=== PATIENT | female | born 2000 | race Caucasian/White ===

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

== ENCOUNTER 2020-01-14 20:00 | Outpatient (CLI) | payer MEDICAID, SELFPAY | END 2020-01-14 20:01 | disposition home or self-care (01) | LOC: SLEEP 01-15 08:54 | PROVIDERS: PCP Family Medicine; Visit Provider Specialist | DX: G47.411 Narcolepsy with cataplexy (principal); G47.10 Hypersomnia, unspecified | CPT/HCPCS: 95810 ==

== ENCOUNTER 2020-01-15 07:00 | Outpatient (CLI) | payer MEDICAID, SELFPAY | END 2020-01-15 07:01 | disposition home or self-care (01) | LOC: SLEEP 01-16 11:04 | PROVIDERS: PCP Family Medicine; Visit Provider Specialist | DX: G47.411 Narcolepsy with cataplexy (principal); G47.10 Hypersomnia, unspecified | CPT/HCPCS: 95805 ==

== ENCOUNTER → 2020-04-08 13:27 | Outpatient (BNVA) | payer MEDICAID, SELFPAY | PROVIDERS: PCP Family Medicine; Visit Provider Psychiatry & Neurology Psychiatry | DX: F41.1 Generalized anxiety disorder; Z86.59 Personal history of other mental and behavioral disorders; F33.1 Major depressive disorder, recurrent, moderate | CPT/HCPCS: 99205 ==

== ENCOUNTER → 2020-04-14 10:03 | Outpatient (BNVA) | payer MEDICAID, SELFPAY | PROVIDERS: PCP Nurse Practitioner Family; Visit Provider Specialist | DX: G47.411 Narcolepsy with cataplexy (principal); R56.9 Unspecified convulsions; F41.1 Generalized anxiety disorder; F33.1 Major depressive disorder, recurrent, moderate | CPT/HCPCS: 99214 ==

== ENCOUNTER → 2020-05-06 08:17 | Outpatient (BNVA) | payer MEDICAID, SELFPAY | PROVIDERS: PCP Nurse Practitioner Family; Visit Provider Psychiatry & Neurology Psychiatry | DX: F41.1 Generalized anxiety disorder (principal); F33.1 Major depressive disorder, recurrent, moderate; G47.411 Narcolepsy with cataplexy | CPT/HCPCS: 99214 ==

== ENCOUNTER 2020-06-01 15:23 | Emergency (ER) | payer MEDICAID, SELFPAY ==
[2020-06-01 15:34] VITALS: BP 123/82; PULSE 97; RESP 14; TEMP 37.2; O2SAT 97; BMI 27.3
--- NOTE | 2020-06-01 15:38 | ECG_ITS ---
[facility] Test Date: 2020-06-01 Pat Name: Kavita Dsouza Department: Room: Gender: Female Orthotic Aide: : 2000 Requested By: Nomi Cavazos Order Number: [id number] Gerson MD: MARIOLA CANDELARIO Measurements Intervals [place] Rate: 107 P: 67 AK: 138 QRS: 68 QRSD: 78 T: 48 QT: 332 QTc: 444 Interpretive Statements SINUS TACHYCARDIA POSSIBLE LEFT ATRIAL ENLARGEMENT [-0.1mV P WAVE IN V1/V2] ABNORMAL RHYTHM ECG No previous ECG available for comparison Electronically Signed On 06-01-2020 20:16:38 CDT by MARIOLA CANDELARIO [id number] [email or web address]
--- NOTE | 2020-06-01 15:40 | ED_ITS ---
Documented by User: Nomi Dodge DO 06/07/20 08:12 HPI - Seizure General: Chief Complaint: Seizure Stated Complaint: SEIZURES Time Seen by Provider: 06/01/20 15:38 History of Present Illness: HPI Narrative: 19-year-old female presents emergency room via EMS with report of seizures. She reportedly had 2 in the field they gave her 2 separate doses of Versed for them. On arrival here she had 2 more while I was in the room. She breathes through these almost hyperventilating like and is shaking of her lower extremities with contractures of her upper extremities. She is nonresponsive. In between episodes she is nonresponsive to painful stimuli. There is no report of trauma. Reviewing her medication list she is not on any anti-'s seizure medications but she is on a several psychiatric medications. Later in the visit she had an episode where she was shaking but then was able to stop when her mother called out. Earlier she had not done that and not responding to painful stimuli. After what appeared to be seizures she had definitive postictal state. MD complaint: seizure Seizure History: Yes Review of Systems General: Reports: ROS unobtainable due to medical condition [facility] ED PFSH: Medical History Bipolar 1 disorder Mitral valve prolapse Seizures Surgical History H/O eye surgery Social History Smoking and tobacco status: never smoked Second hand smoke exposure: No Current gender identity: Female Female Reproductive History: Date of last menstrual period: 11/19/19 Physical Exam Const: COMMON NORMALS: no acute distress GENERAL APPEARANCE: cooperative and comfortable ORIENTATION/CONSCIOUSNESS: Yes awake, Yes oriented to person, Yes oriented to place and Yes oriented to time HENMT: COMMON NORMALS: normocephalic, atraumatic and hearing grossly normal bilaterally HEAD & SCALP: normocephalic and atraumatic Neck/C-Spine: COMMON NORMALS: no JVD Resp: COMMON NORMALS: normal respiratory effort, No retractions, No use of accessory muscles and clear to auscultation bilaterally AUSCULTATION: clear to auscultation bilaterally Cardio: COMMON NORMALS: no JVD, regular rate, regular rhythm and No murmurs present (Cardio) RATE: regular rate RHYTHM: regular rhythm GI: COMMON NORMALS: Soft to palpation and No hepatosplenomegaly present AUSCULTATION: Yes normoactive bowel sounds PALPATION: Yes Soft to palpation, No Tenderness to palpation present (GI), No Guarding due to palpation present (GI) and Yes No hepatosplenomegaly present Extremity: COMMON NORMALS: normal to inspection, capillary refill normal, no clubbing, cyanosis or edema, no calf tenderness and no pedal edema Neuro: SENSORIUM/ORIENTATION: Yes oriented to person, Yes oriented to place and Yes oriented to time Skin: COMMON NORMALS: no rashes or lesions noted GENERAL SKIN EXAM: no rashes or lesions noted Course Vital Signs: Vital signs: Vital Signs Temperature 99.0 F 06/01/20 15:34 Pulse Rate 96 06/01/20 18:11 Respiratory Rate 18 06/01/20 18:11 Blood Pressure 118/77 06/01/20 18:11 Pulse Oximetry 99 06/01/20 18:11 MDM - Seizure MDM Narrative: Medical decision making narrative: Laboratory studies and imaging pending care turned over to Dr. Souza at change of shift. Lab Data: Labs: Lab Results 06/01/20 06/01/20 06/01/20 Range/Units 13:10 13:10 16:03 WBC 8.6 (4.5-13.0) 10^3/ uL RBC 4.67 (4.1-5.3) 10^6/u L Hgb 14.5 (11.5-15.3) g/dL Hct 42.8 (37.0-47.0) % MCV 91.6 (81-99) fL MCH 31.0 (28.0-34.0) pg MCHC 33.9 (30.0-36.0) g/dL RDW 12.1 (12.1-15.1) % Plt Count 343 (130-400) 10^3/c mm MPV 9.3 (7.4-10.4) fL Neut % (Auto) 70.6 % Lymph % (Auto) 21.9 % [place] % (Auto) 5.9 % Eos % (Auto) 0.9 % Baso % (Auto) 0.5 % Neut # (Auto) 6.06 (1.8-8.0) 10^3/u L Lymph # (Auto) 1.9 (1.5-6.5) 10^3/u L [place] # (Auto) 0.5 (0.2-0.9) 10^3/u L Eos # (Auto) 0.1 (0.0-0.8) 10^3/u L Baso # (Auto) 0.0 (0.0-0.1) 10^3/u L Nucleated RBC % (a uto) 0 % Nucleated RBCs # 0.0 /100WBC Specimen Type Arterial Sample Site Brachial, right ABG pH 7.51 H (7.35-7.45) ABG pCO2 19.8 L* (35-45) mmHg ABG pO2 96.2 (80.0-100.0) mmH g ABG HCO3 15.6 L (22-26) mmol/L ABG O2 Saturation 98.7 ABG Base Excess -4.8 L (-2.0-2.0) mmol/ L Jason Test Pos A-a O2 Gradient 3.4 L (5-10) mmHg Hematocrit 46.0 (37-47) % Hgb O2 Saturation 97.4 (95-100) % Carboxyhemoglobin 0.4 (0.4-20.1) %THgb Methemoglobin 0.9 (0.4-1.5) % Total Hemoglobin 15.0 (12-16) g/dL Ionized Calcium 1.2 (1.1-1.4) mmol/L O2 Delivery Device Room air FiO2 21.0 % Hospital Account Liaison ID jmn Sodium 140 140.0 (136-145) mmol/L Potassium 3.6 3.8 (3.5-5.1) mmol/L Chloride 104 (98-107) mmol/L Carbon Dioxide 23 (22-29) mmol/L Anion Gap 16.6 (5-19) BUN 7 (6-20) mg/dL Creatinine 0.7 (0.5-0.9) mg/dL GFR Calculation 107.8 (90-130) mL/min Glucose 78 90.0 (65-115) mg/dL Calculated Osmolal ity 287 (285-295) mOsm/k g Lactic Acid (0.5-2.2) mmol/L Calcium 9.0 (8.5-10.5) mg/dL Total Bilirubin 0.2 (0.15-1.2) mg/dL AST 24 (0-32) U/L ALT 18 (0-33) U/L Alkaline Phosphata se 73 (35-105) IU/L Creatine Kinase 107 (26-192) U/L Total Protein 7.3 (6.6-8.7) g/dL Albumin 4.5 (3.5-5.2) g/dL Globulin 2.8 (1.3-4.6) g/dL HCG, Qual (Negative) Urine Color (Yellow) Urine Appearance (CLEAR) Urine pH (5-7) Ur Specific Gravit y (1.005-1.030) Urine Protein (Negative) Urine Glucose (UA) (Normal) Urine Ketones (Negative) Urine Blood (Negative) Urine Nitrate (Negative) Urine Bilirubin (Negative) Urine Urobilinogen (Negative) mg/dL Ur Leukocyte Chiara ase (Negative) Urine Opiates Scre en (Negative) ng/mL Ur Barbiturates Sc reen (Negative) ng/mL Ur Phencyclidine S crn (Negative) ng/mL Ur Amphetamines Sc reen (Negative) ng/mL U Benzodiazepines Scrn (Negative) ng/mL Urine Cocaine Scre en (Negative) ng/mL U Marijuana (THC) Screen (Negative) ng/mL 06/01/20 06/01/20 06/01/20 Range/Units 16:22 17:30 17:30 WBC (4.5-13.0) 10^3/ uL RBC (4.1-5.3) 10^6/u L Hgb (11.5-15.3) g/dL Hct (37.0-47.0) % MCV (81-99) fL MCH (28.0-34.0) pg MCHC (30.0-36.0) g/dL RDW (12.1-15.1) % Plt Count (130-400) 10^3/c mm MPV (7.4-10.4) fL Neut % (Auto) % Lymph % (Auto) % [place] % (Auto) % Eos % (Auto) % Baso % (Auto) % Neut # (Auto) (1.8-8.0) 10^3/u L Lymph # (Auto) (1.5-6.5) 10^3/u L [place] # (Auto) (0.2-0.9) 10^3/u L Eos # (Auto) (0.0-0.8) 10^3/u L Baso # (Auto) (0.0-0.1) 10^3/u L Nucleated RBC % (a uto) % Nucleated RBCs # /100WBC Specimen Type Sample Site ABG pH (7.35-7.45) ABG pCO2 (35-45) mmHg ABG pO2 (80.0-100.0) mmH g ABG HCO3 (22-26) mmol/L ABG O2 Saturation ABG Base Excess (-2.0-2.0) mmol/ L Jason Test A-a O2 Gradient (5-10) mmHg Hematocrit (37-47) % Hgb O2 Saturation (95-100) % Carboxyhemoglobin (0.4-20.1) %THgb Methemoglobin (0.4-1.5) % Total Hemoglobin (12-16) g/dL Ionized Calcium (1.1-1.4) mmol/L O2 Delivery Device FiO2 % Hospital Account Liaison ID Sodium (136-145) mmol/L Potassium (3.5-5.1) mmol/L Chloride (98-107) mmol/L Carbon Dioxide (22-29) mmol/L Anion Gap (5-19) BUN (6-20) mg/dL Creatinine (0.5-0.9) mg/dL GFR Calculation (90-130) mL/min Glucose (65-115) mg/dL Calculated Osmolal ity (285-295) mOsm/k g Lactic Acid 5.0 H* (0.5-2.2) mmol/L Calcium (8.5-10.5) mg/dL Total Bilirubin (0.15-1.2) mg/dL AST (0-32) U/L ALT (0-33) U/L Alkaline Phosphata se (35-105) IU/L Creatine Kinase (26-192) U/L Total Protein (6.6-8.7) g/dL Albumin (3.5-5.2) g/dL Globulin (1.3-4.6) g/dL HCG, Qual (Negative) Urine Color Yellow (Yellow) Urine Appearance Clear (CLEAR) Urine pH 7 (5-7) Ur Specific Gravit y 1.010 (1.005-1.030) Urine Protein Neg (Negative) Urine Glucose (UA) Norm (Normal) Urine Ketones Negative (Negative) Urine Blood Neg (Negative) Urine Nitrate Negative (Negative) Urine Bilirubin Neg (Negative) Urine Urobilinogen Norm (Negative) mg/dL Ur Leukocyte Chiara ase Negative (Negative) Urine Opiates Scre en Negative (Negative) ng/mL Ur Barbiturates Sc reen Negative (Negative) ng/mL Ur Phencyclidine S crn Negative (Negative) ng/mL Ur Amphetamines Sc reen Negative (Negative) ng/mL U Benzodiazepines Scrn Negative (Negative) ng/mL Urine Cocaine Scre en Negative (Negative) ng/mL U Marijuana (THC) Screen Negative (Negative) ng/mL 06/01/20 Range/Units 17:30 WBC (4.5-13.0) 10^3/ uL RBC (4.1-5.3) 10^6/u L Hgb (11.5-15.3) g/dL Hct (37.0-47.0) % MCV (81-99) fL MCH (28.0-34.0) pg MCHC (30.0-36.0) g/dL RDW (12.1-15.1) % Plt Count (130-400) 10^3/c mm MPV (7.4-10.4) fL Neut % (Auto) % Lymph % (Auto) % [place] % (Auto) % Eos % (Auto) % Baso % (Auto) % Neut # (Auto) (1.8-8.0) 10^3/u L Lymph # (Auto) (1.5-6.5) 10^3/u L [place] # (Auto) (0.2-0.9) 10^3/u L Eos # (Auto) (0.0-0.8) 10^3/u L Baso # (Auto) (0.0-0.1) 10^3/u L Nucleated RBC % (a uto) % Nucleated RBCs # /100WBC Specimen Type Sample Site ABG pH (7.35-7.45) ABG pCO2 (35-45) mmHg ABG pO2 (80.0-100.0) mmH g ABG HCO3 (22-26) mmol/L ABG O2 Saturation ABG Base Excess (-2.0-2.0) mmol/ L Jason Test A-a O2 Gradient (5-10) mmHg Hematocrit (37-47) % Hgb O2 Saturation (95-100) % Carboxyhemoglobin (0.4-20.1) %THgb Methemoglobin (0.4-1.5) % Total Hemoglobin (12-16) g/dL Ionized Calcium (1.1-1.4) mmol/L O2 Delivery Device FiO2 % Hospital Account Liaison ID Sodium (136-145) mmol/L Potassium (3.5-5.1) mmol/L Chloride (98-107) mmol/L Carbon Dioxide (22-29) mmol/L Anion Gap (5-19) BUN (6-20) mg/dL Creatinine (0.5-0.9) mg/dL GFR Calculation (90-130) mL/min Glucose (65-115) mg/dL Calculated Osmolal ity (285-295) mOsm/k g Lactic Acid (0.5-2.2) mmol/L Calcium (8.5-10.5) mg/dL Total Bilirubin (0.15-1.2) mg/dL AST (0-32) U/L ALT (0-33) U/L Alkaline Phosphata se (35-105) IU/L Creatine Kinase (26-192) U/L Total Protein (6.6-8.7) g/dL Albumin (3.5-5.2) g/dL Globulin (1.3-4.6) g/dL HCG, Qual Negative (Negative) Urine Color (Yellow) Urine Appearance (CLEAR) Urine pH (5-7) Ur Specific Gravit y (1.005-1.030) Urine Protein (Negative) Urine Glucose (UA) (Normal) Urine Ketones (Negative) Urine Blood (Negative) Urine Nitrate (Negative) Urine Bilirubin (Negative) Urine Urobilinogen (Negative) mg/dL Ur Leukocyte Chiara ase (Negative) Urine Opiates Scre en (Negative) ng/mL Ur Barbiturates Sc reen (Negative) ng/mL Ur Phencyclidine S crn (Negative) ng/mL Ur Amphetamines Sc reen (Negative) ng/mL U Benzodiazepines Scrn (Negative) ng/mL Urine Cocaine Scre en (Negative) ng/mL U Marijuana (THC) Screen (Negative) ng/mL Discharge Plan Discharge Patient Disposition: Home Clinical Impression: Seizures Condition: Stable Prescriptions: New Zonegran 100 mg capsule 100 mg PO BID Qty: 60 RF: 0 No Action duloxetine [Cymbalta] 30 mg capsule,delayed release(DR/EC) 30 mg PO DAILY Qty: 30 RF: 2 methylphenidate HCl 20 mg tablet 20 mg PO TID 30 Days Qty: 90 RF: 0 latanoprost 0.005 % drops 1 drp ophthalmic (eye) BEDTIME RF: 0 ascorbic acid (vitamin C) [Vitamin C] 1,000 mg Tablet 1,000 mg PO DAILY RF: 0 buspirone 7.5 mg tablet 7.5 mg PO BID RF: 0 norgestimate-ethinyl estradiol [Tri Femynor] 0.18/0.215/0.25 mg-35 mcg (28) tablet 1 tab PO DAILY RF: 0 aripiprazole 10 mg tablet 10 mg PO BEDTIME RF: 0 atomoxetine 40 mg capsule 40 mg PO DAILY RF: 0 Discharge Orders: Discharge ED (Routine); Ordered 06/01/20 Ordered By: Jay Souza Referrals: Sera Palma MD [Physician] - 1-3 days Leelee Levy FNP [Primary Care Provider] - Discharge Diet: Advance as tolerated Discharge Activity: Resume usual activity Patient Instructions: Recurrent Seizures Adult (ED) Coding Level of Care Code ED Temporary Office Assistant for Chg Fwd Documented by User: Jay Souza MD 06/01/20 18:05 HPI - Seizure General: Chief Complaint: Seizure Stated Complaint: SEIZURES Time Seen by Provider: 06/01/20 15:38 PFSH ED PFSH: Medical History Bipolar 1 disorder Mitral valve prolapse Seizures Surgical History H/O eye surgery Social History Smoking and tobacco status: never smoked Second hand smoke exposure: No Current gender identity: Female Course Vital Signs: Vital signs: Vital Signs Temperature 99.0 F 06/01/20 15:34 Pulse Rate 96 06/01/20 18:11 Respiratory Rate 18 06/01/20 18:11 Blood Pressure 118/77 06/01/20 18:11 Pulse Oximetry 99 06/01/20 18:11 MDM - Seizure MDM Narrative: Medical decision making narrative: Patient presents with seizure elevated lactate likely a true seizure. She did have a postictal episode here as well. She is well-appearing here was given IV Keppra. She is able ambulate and stable for discharge. I spoke to her neurologist Dr. Palma we will start her on Zonegran for her seizures and she is to follow-up with her in 2 weeks as scheduled. She is return if worsening. She understands agrees to plan. Lab Data: Labs: Lab Results 06/01/20 06/01/20 06/01/20 Range/Units 13:10 13:10 16:03 WBC 8.6 (4.5-13.0) 10^3/ uL RBC 4.67 (4.1-5.3) 10^6/u L Hgb 14.5 (11.5-15.3) g/dL Hct 42.8 (37.0-47.0) % MCV 91.6 (81-99) fL MCH 31.0 (28.0-34.0) pg MCHC 33.9 (30.0-36.0) g/dL RDW 12.1 (12.1-15.1) % Plt Count 343 (130-400) 10^3/c mm MPV 9.3 (7.4-10.4) fL Neut % (Auto) 70.6 % Lymph % (Auto) 21.9 % [place] % (Auto) 5.9 % Eos % (Auto) 0.9 % Baso % (Auto) 0.5 % Neut # (Auto) 6.06 (1.8-8.0) 10^3/u L Lymph # (Auto) 1.9 (1.5-6.5) 10^3/u L [place] # (Auto) 0.5 (0.2-0.9) 10^3/u L Eos # (Auto) 0.1 (0.0-0.8) 10^3/u L Baso # (Auto) 0.0 (0.0-0.1) 10^3/u L Nucleated RBC % (a uto) 0 % Nucleated RBCs # 0.0 /100WBC Specimen Type Arterial Sample Site Brachial, right ABG pH 7.51 H (7.35-7.45) ABG pCO2 19.8 L* (35-45) mmHg ABG pO2 96.2 (80.0-100.0) mmH g ABG HCO3 15.6 L (22-26) mmol/L ABG O2 Saturation 98.7 ABG Base Excess -4.8 L (-2.0-2.0) mmol/ L Jason Test Pos A-a O2 Gradient 3.4 L (5-10) mmHg Hematocrit 46.0 (37-47) % Hgb O2 Saturation 97.4 (95-100) % Carboxyhemoglobin 0.4 (0.4-20.1) %THgb Methemoglobin 0.9 (0.4-1.5) % Total Hemoglobin 15.0 (12-16) g/dL Ionized Calcium 1.2 (1.1-1.4) mmol/L O2 Delivery Device Room air FiO2 21.0 % Hospital Account Liaison ID jmn Sodium 140 140.0 (136-145) mmol/L Potassium 3.6 3.8 (3.5-5.1) mmol/L Chloride 104 (98-107) mmol/L Carbon Dioxide 23 (22-29) mmol/L Anion Gap 16.6 (5-19) BUN 7 (6-20) mg/dL Creatinine 0.7 (0.5-0.9) mg/dL GFR Calculation 107.8 (90-130) mL/min Glucose 78 90.0 (65-115) mg/dL Calculated Osmolal ity 287 (285-295) mOsm/k g Lactic Acid (0.5-2.2) mmol/L Calcium 9.0 (8.5-10.5) mg/dL Total Bilirubin 0.2 (0.15-1.2) mg/dL AST 24 (0-32) U/L ALT 18 (0-33) U/L Alkaline Phosphata se 73 (35-105) IU/L Creatine Kinase 107 (26-192) U/L Total Protein 7.3 (6.6-8.7) g/dL Albumin 4.5 (3.5-5.2) g/dL Globulin 2.8 (1.3-4.6) g/dL HCG, Qual (Negative) Urine Color (Yellow) Urine Appearance (CLEAR) Urine pH (5-7) Ur Specific Gravit y (1.005-1.030) Urine Protein (Negative) Urine Glucose (UA) (Normal) Urine Ketones (Negative) Urine Blood (Negative) Urine Nitrate (Negative) Urine Bilirubin (Negative) Urine Urobilinogen (Negative) mg/dL Ur Leukocyte Chiara ase (Negative) Urine Opiates Scre en (Negative) ng/mL Ur Barbiturates Sc reen (Negative) ng/mL Ur Phencyclidine S crn (Negative) ng/mL Ur Amphetamines Sc reen (Negative) ng/mL U Benzodiazepines Scrn (Negative) ng/mL Urine Cocaine Scre en (Negative) ng/mL U Marijuana (THC) Screen (Negative) ng/mL 06/01/20 06/01/20 06/01/20 Range/Units 16:22 17:30 17:30 WBC (4.5-13.0) 10^3/ uL RBC (4.1-5.3) 10^6/u L Hgb (11.5-15.3) g/dL Hct (37.0-47.0) % MCV (81-99) fL MCH (28.0-34.0) pg MCHC (30.0-36.0) g/dL RDW (12.1-15.1) % Plt Count (130-400) 10^3/c mm MPV (7.4-10.4) fL Neut % (Auto) % Lymph % (Auto) % [place] % (Auto) % Eos % (Auto) % Baso % (Auto) % Neut # (Auto) (1.8-8.0) 10^3/u L Lymph # (Auto) (1.5-6.5) 10^3/u L [place] # (Auto) (0.2-0.9) 10^3/u L Eos # (Auto) (0.0-0.8) 10^3/u L Baso # (Auto) (0.0-0.1) 10^3/u L Nucleated RBC % (a uto) % Nucleated RBCs # /100WBC Specimen Type Sample Site ABG pH (7.35-7.45) ABG pCO2 (35-45) mmHg ABG pO2 (80.0-100.0) mmH g ABG HCO3 (22-26) mmol/L ABG O2 Saturation ABG Base Excess (-2.0-2.0) mmol/ L Jason Test A-a O2 Gradient (5-10) mmHg Hematocrit (37-47) % Hgb O2 Saturation (95-100) % Carboxyhemoglobin (0.4-20.1) %THgb Methemoglobin (0.4-1.5) % Total Hemoglobin (12-16) g/dL Ionized Calcium (1.1-1.4) mmol/L O2 Delivery Device FiO2 % Hospital Account Liaison ID Sodium (136-145) mmol/L Potassium (3.5-5.1) mmol/L Chloride (98-107) mmol/L Carbon Dioxide (22-29) mmol/L Anion Gap (5-19) BUN (6-20) mg/dL Creatinine (0.5-0.9) mg/dL GFR Calculation (90-130) mL/min Glucose (65-115) mg/dL Calculated Osmolal ity (285-295) mOsm/k g Lactic Acid 5.0 H* (0.5-2.2) mmol/L Calcium (8.5-10.5) mg/dL Total Bilirubin (0.15-1.2) mg/dL AST (0-32) U/L ALT (0-33) U/L Alkaline Phosphata se (35-105) IU/L Creatine Kinase (26-192) U/L Total Protein (6.6-8.7) g/dL Albumin (3.5-5.2) g/dL Globulin (1.3-4.6) g/dL HCG, Qual (Negative) Urine Color Yellow (Yellow) Urine Appearance Clear (CLEAR) Urine pH 7 (5-7) Ur Specific Gravit y 1.010 (1.005-1.030) Urine Protein Neg (Negative) Urine Glucose (UA) Norm (Normal) Urine Ketones Negative (Negative) Urine Blood Neg (Negative) Urine Nitrate Negative (Negative) Urine Bilirubin Neg (Negative) Urine Urobilinogen Norm (Negative) mg/dL Ur Leukocyte Chiara ase Negative (Negative) Urine Opiates Scre en Negative (Negative) ng/mL Ur Barbiturates Sc reen Negative (Negative) ng/mL Ur Phencyclidine S crn Negative (Negative) ng/mL Ur Amphetamines Sc reen Negative (Negative) ng/mL U Benzodiazepines Scrn Negative (Negative) ng/mL Urine Cocaine Scre en Negative (Negative) ng/mL U Marijuana (THC) Screen Negative (Negative) ng/mL 06/01/20 Range/Units 17:30 WBC (4.5-13.0) 10^3/ uL RBC (4.1-5.3) 10^6/u L Hgb (11.5-15.3) g/dL Hct (37.0-47.0) % MCV (81-99) fL MCH (28.0-34.0) pg MCHC (30.0-36.0) g/dL RDW (12.1-15.1) % Plt Count (130-400) 10^3/c mm MPV (7.4-10.4) fL Neut % (Auto) % Lymph % (Auto) % [place] % (Auto) % Eos % (Auto) % Baso % (Auto) % Neut # (Auto) (1.8-8.0) 10^3/u L Lymph # (Auto) (1.5-6.5) 10^3/u L [place] # (Auto) (0.2-0.9) 10^3/u L Eos # (Auto) (0.0-0.8) 10^3/u L Baso # (Auto) (0.0-0.1) 10^3/u L Nucleated RBC % (a uto) % Nucleated RBCs # /100WBC Specimen Type Sample Site ABG pH (7.35-7.45) ABG pCO2 (35-45) mmHg ABG pO2 (80.0-100.0) mmH g ABG HCO3 (22-26) mmol/L ABG O2 Saturation ABG Base Excess (-2.0-2.0) mmol/ L Jason Test A-a O2 Gradient (5-10) mmHg Hematocrit (37-47) % Hgb O2 Saturation (95-100) % Carboxyhemoglobin (0.4-20.1) %THgb Methemoglobin (0.4-1.5) % Total Hemoglobin (12-16) g/dL Ionized Calcium (1.1-1.4) mmol/L O2 Delivery Device FiO2 % Hospital Account Liaison ID Sodium (136-145) mmol/L Potassium (3.5-5.1) mmol/L Chloride (98-107) mmol/L Carbon Dioxide (22-29) mmol/L Anion Gap (5-19) BUN (6-20) mg/dL Creatinine (0.5-0.9) mg/dL GFR Calculation (90-130) mL/min Glucose (65-115) mg/dL Calculated Osmolal ity (285-295) mOsm/k g Lactic Acid (0.5-2.2) mmol/L Calcium (8.5-10.5) mg/dL Total Bilirubin (0.15-1.2) mg/dL AST (0-32) U/L ALT (0-33) U/L Alkaline Phosphata se (35-105) IU/L Creatine Kinase (26-192) U/L Total Protein (6.6-8.7) g/dL Albumin (3.5-5.2) g/dL Globulin (1.3-4.6) g/dL HCG, Qual Negative (Negative) Urine Color (Yellow) Urine Appearance (CLEAR) Urine pH (5-7) Ur Specific Gravit y (1.005-1.030) Urine Protein (Negative) Urine Glucose (UA) (Normal) Urine Ketones (Negative) Urine Blood (Negative) Urine Nitrate (Negative) Urine Bilirubin (Negative) Urine Urobilinogen (Negative) mg/dL Ur Leukocyte Chiara ase (Negative) Urine Opiates Scre en (Negative) ng/mL Ur Barbiturates Sc reen (Negative) ng/mL Ur Phencyclidine S crn (Negative) ng/mL Ur Amphetamines Sc reen (Negative) ng/mL U Benzodiazepines Scrn (Negative) ng/mL Urine Cocaine Scre en (Negative) ng/mL U Marijuana (THC) Screen (Negative) ng/mL Imaging Data^: CT Head: Attestation: I personally reviewed and interpreted this imaging study as follows: Radiologist's impression: [address] [address] [address] Scan Report Signed Patient: Kavita Dsouza Unit #: [id number] : 2000 Age/Sex: 19 / F ADM Date: 06/01/20 Loc: ER Room/Bed: Attending Dr: Ordering Provider/Ordering MD: Nomi Dodge DO Date of Service: 06/01/20 Procedure(s): CT head wo con* [id number] Accession Number(s): [id number] Report Number: [id number] PROCEDURE INFORMATION: Exam: CT Head Without Contrast Exam date and time: 06/01/2020 3:58 PM Age: 19 years old Clinical indication: Other: Seizures TECHNIQUE: Imaging protocol: Computed tomography of the head without contrast. Total images: 189 Radiation optimization: All CT scans at this facility use at least one of these dose optimization techniques: automated exposure control; mA and/or kV adjustment per patient size (includes targeted exams where dose is matched to clinical indication); or iterative reconstruction. COMPARISON: No relevant prior studies available. RADIATION DOSE METRICS: Total DLP (mGy-cm): 797.61 FINDINGS: Brain: Normal. No hemorrhage. Unremarkable white matter. No mass effect. Cerebral ventricles: No ventriculomegaly. Bones/joints: Unremarkable. No acute fracture. Paranasal sinuses: Visualized sinuses are unremarkable. No fluid levels. Mastoid air cells: Visualized mastoid air cells are well aerated. Soft tissues: Unremarkable. CT/CT head wo con* [id number] IMPRESSION: No acute intracranial abnormality. Radiation Dose CTDIVOL = (mGy): DLP = 797.61 (mGy-cm) EKG Data^: EKG 1: Attestation: I personally reviewed and interpreted this EKG as follows: EKG interpretation date: 06/01/20 EKG interpretation time: 17:14 Interpretation: sinus tach hr [address] or t wave abnormalities Discharge Plan Discharge Patient Disposition: Home Clinical Impression: Seizures Condition: Stable Prescriptions: New Zonegran 100 mg capsule 100 mg PO BID Qty: 60 RF: 0 No Action duloxetine [Cymbalta] 30 mg capsule,delayed release(DR/EC) 30 mg PO DAILY Qty: 30 RF: 2 methylphenidate HCl 20 mg tablet 20 mg PO TID 30 Days Qty: 90 RF: 0 latanoprost 0.005 % drops 1 drp ophthalmic (eye) BEDTIME RF: 0 ascorbic acid (vitamin C) [Vitamin C] 1,000 mg Tablet 1,000 mg PO DAILY RF: 0 buspirone 7.5 mg tablet 7.5 mg PO BID RF: 0 norgestimate-ethinyl estradiol [Tri Femynor] 0.18/0.215/0.25 mg-35 mcg (28) tablet 1 tab PO DAILY RF: 0 aripiprazole 10 mg tablet 10 mg PO BEDTIME RF: 0 atomoxetine 40 mg capsule 40 mg PO DAILY RF: 0 Discharge Orders: Discharge ED (Routine); Ordered 06/01/20 Ordered By: Jay Souza Referrals: Sera Palma MD [Physician] - 1-3 days Leelee Levy, DIRECTOR OF [employer]ETING [Primary Care Provider] - Discharge Diet: Advance as tolerated Discharge Activity: Resume usual activity Patient Instructions: Recurrent Seizures Adult (ED) Coding Level of Care Code ED Temporary Office Assistant for Pradeep Yañez
[2020-06-01 16:02] LABS: Basophils % 0.5 %; Eosinophils # 0.1 10^3/uL (0.0-0.8); Eosinophils % 0.9 %; Hematocrit 42.8 % (37.0-47.0); Hemoglobin 14.5 g/dL (11.5-15.3); Lymphocytes # 1.9 10^3/uL (1.5-6.5); Lymphocytes % 21.9 %; Mean Corpuscular HGB Conc 33.9 g/dL (30.0-36.0); Mean Corpuscular Volume 91.6 fL (81-99); Mean Platelet Volume 9.3 fL (7.4-10.4); Monocytes # 0.5 10^3/uL (0.2-0.9); Monocytes % 5.9 %; Neutrophils # 6.06 10^3/uL (1.8-8.0); Neutrophils % 70.6 %; Nucleated Red Blood Cells % 0 %; Platelet Count 343 10^3/cmm (130-400); Red Blood Count 4.67 10^6/uL (4.1-5.3); Red Cell Distribution Width 12.1 % (12.1-15.1); White Blood Count 8.6 10^3/uL (4.5-13.0)
[2020-06-01 16:15] LABS: ABG PCO2 19.8 mmHg (35-45); ABG PH Result 7.51 (7.35-7.45); Alveolar-Arterial Oxygen Gradi 3.4 mmHg (5-10); Base Excess ABG -4.8 mmol/L (-2.0-2.0); Blood Gas Allen Test Pos; Blood Gas Sample Site Brachial, right; Blood Gas Sample Type Arterial; Carboxyhemoglobin 0.4 %THgb (0.4-20.1); HCO3 ABG 15.6 mmol/L (22-26); HGB O2 Sat 97.4 % (95-100); Ionized Calcium Level - ABG 1.2 mmol/L (1.1-1.4); Methemoglobin 0.9 % (0.4-1.5); Oxygen Device ROOM AIR; Oxygen Saturation ABG 98.7; PO2 ABG 96.2 mmHg (80.0-100.0); Potassium Level - ABG 3.8 mmol/L (3.5-5.0)
[2020-06-01] MEDS: LORazepam 2 mg/mL INJ 1 mL IVP (16:21)
[2020-06-01 16:30] LABS: Alanine Aminotransferase 18 U/L (0-33); Albumin Level 4.5 g/dL (3.5-5.2); Alkaline Phosphatase 73 IU/L (35-105); Anion Gap 16.6 (5-19); Aspartate Amino Transferase 24 U/L (0-32); Blood Urea Nitrogen 7 mg/dL (6-20); Carbon Dioxide 23 mmol/L (22-29); Chloride 104 mmol/L (98-107); Creatine Phosphokinase 107 U/L (26-192); Globulin 2.8 g/dL (1.3-4.6); Glomerular Filtration Rate 107.8 mL/min (90-130); Glucose 78 mg/dL (65-115); Osmolality Calculated 287 mOsm/kg (285-295); Potassium 3.6 mmol/L (3.5-5.1); Sodium 140 mmol/L (136-145); Total Bilirubin 0.2 mg/dL (0.15-1.2); Total Protein 7.3 g/dL (6.6-8.7)
[2020-06-01 17:02] VITALS: BP 123/82; PULSE 136; RESP 24; O2SAT 99
[2020-06-01 17:34] VITALS: PULSE 105
[2020-06-01 17:42] LABS: Add Urine Microscopic? NO
[2020-06-01 17:53] VITALS: BP 118/77; PULSE 108; RESP 20; O2SAT 100
[2020-06-01 18:01] LABS: Bilirubin Urine Neg (Negative); Blood Urine Neg (Negative); Glucose Urine UA Norm (Normal); Ketones Urine Negative (Negative); Leukocyte Esterase Urine Negative (Negative); Nitrate Urine Negative (Negative); Protein Urine Neg (Negative); Urine Appearance Clear (CLEAR); Urine Color Yellow (Yellow); Urobilinogen Urine Norm (Negative); pH Urine 7 (5-7)
[2020-06-01 18:02] LABS: HCG Qualitative Urine. Negative (Negative)
[2020-06-01 18:10] LABS: Amphetamines Screen Urine Negative (Negative); Barbiturates Screen Urine Negative (Negative); Benzodiazepines Screen Urine Negative (Negative); Cocaine Screen Urine Negative (Negative); Opiate Screen Urine Negative (Negative); PCP Screen Urine Negative (Negative); THC Screen Urine Negative (Negative)
[2020-06-01 18:11] VITALS: BP 118/77; PULSE 96; RESP 18; O2SAT 99
[2020-06-01 18:12] LABS: Reflex Lactate Order REFLEX LACTIC ORDERD
== END 2020-06-01 18:13 | disposition home or self-care (01) ==
PROVIDERS: Family Medicine; Emergency Provider Emergency Medicine; PCP Nurse Practitioner Family
DX: R56.9 Unspecified convulsions (principal)
CPT/HCPCS: 36415; 36600; 70450; 80051; 80053; 80306; 81003; 81025; 82330; 82550; 82805; 83605; 85025; 93005; 96374; 96375; 99284; J1953; J2060

== ENCOUNTER 2020-06-08 14:26 | Emergency (ER) | payer MEDICAID, SELFPAY ==
[2020-06-08 14:32] VITALS: BP 134/85; PULSE 130; RESP 16; TEMP 36.6; O2SAT 98; BMI 24.4
--- NOTE | 2020-06-08 14:46 | ED_ITS ---
HPI - Seizure General: Stated Complaint: SEIZURE Time Seen by Provider: 06/08/20 14:40 History of Present Illness: Seizure History: Yes PFSH ED PFSH: Medical History Bipolar 1 disorder Mitral valve prolapse Seizures Surgical History H/O eye surgery Social History Smoking and tobacco status: never smoked Second hand smoke exposure: No Current gender identity: Female Female Reproductive History: Date of last menstrual period: 11/19/19 Discharge Plan Discharge Prescriptions: No Action duloxetine [Cymbalta] 30 mg capsule,delayed release(DR/EC) 30 mg PO DAILY Qty: 30 RF: 2 methylphenidate HCl 20 mg tablet 20 mg PO TID 30 Days Qty: 90 RF: 0 latanoprost 0.005 % drops 1 drp ophthalmic (eye) BEDTIME RF: 0 ascorbic acid (vitamin C) [Vitamin C] 1,000 mg Tablet 1,000 mg PO DAILY RF: 0 buspirone 7.5 mg tablet 7.5 mg PO BID RF: 0 norgestimate-ethinyl estradiol [Tri Femynor] 0.18/0.215/0.25 mg-35 mcg (28) tablet 1 tab PO DAILY RF: 0 aripiprazole 10 mg tablet 10 mg PO BEDTIME RF: 0 atomoxetine 40 mg capsule 40 mg PO DAILY RF: 0 Zonegran 100 mg capsule 100 mg PO BID Qty: 60 RF: 0 Coding Level of Care Code ED Medical Records Technician for Pradeep Yañez
--- NOTE | 2020-06-08 15:07 | ED_ITS ---
HPI - Seizure General: Chief Complaint: Seizure Stated Complaint: SEIZURE Time Seen by Provider: 06/08/20 14:40 History of Present Illness: HPI Narrative: 19-year-old female presents emergency room with seizures. We seen her a week ago at that time she was sta rted on seizure medication after consultation by Dr. Palma over the phone. Since then the mother reports she has seizures 5 the last 7 days where she will have brief 10 to 15 seconds seizures that will recur every minute or so for sometimes up to an hour. Today she has had a nearly 2-1/2 hours of recurrent seizures during the time I was taking her history of witnessed 3 of these. She was immediately given Ativan and loaded with Keppra. complaint: seizure Onset (ago): day(s) Description of Episode: loss of consciousness and tonic-clonic movement Duration of episode: 10 -: second(s) Witnessed: Yes - by Bystander Trauma: No Seizure History: Yes Place: Work Possible Precipitating Event: none Associated symptoms: Reports confusion and malaise; Deny chest pain, chills, cough, diaphoresis, fever(s), anorexia, rash, short of breath, syncope or weakness Treatments prior to arrival: none Review of Systems Const: Reports: malaise; Denies: fever(s), chills or diaphoresis ENMT: Denies: throat pain, ear or mastoid pain, nasal discharge or nasal congestion Card: Denies: chest pain or syncope Resp: Denies: dyspnea, productive cough or non-productive cough GI: Denies: abdominal pain, nausea, vomiting, hematemesis, coffee ground emesis, diarrhea, constipation, bloating, hematochezia or melena : Denies: flank pain, difficulty voiding, dysuria, urinary frequency or urinary urgency Skin/Breast: Denies: rash or pruritus Neuro: Reports: confusion PFSH ED PFSH: Medical History Bipolar 1 disorder Mitral valve prolapse Seizures Surgical History H/O eye surgery Social History Smoking and tobacco status: never smoked Second hand smoke exposure: No Current gender identity: Female Female Reproductive History: Date of last menstrual period: 06/03/20 Physical Exam HENMT: COMMON NORMALS: normocephalic, atraumatic and hearing grossly normal bilaterally HEAD & SCALP: normocephalic and atraumatic Neck/C-Spine: COMMON NORMALS: no JVD Resp: COMMON NORMALS: normal respiratory effort, No retractions, No use of accessory muscles and clear to auscultation bilaterally AUSCULTATION: clear to auscultation bilaterally Cardio: COMMON NORMALS: no JVD, regular rate, regular rhythm and No murmurs present (Cardio) RATE: regular rate RHYTHM: regular rhythm GI: COMMON NORMALS: Soft to palpation and No hepatosplenomegaly present AUSCULTATION: Yes normoactive bowel sounds PALPATION: Yes Soft to palpation, No Tenderness to palpation present (GI), No Guarding due to palpation present (GI) and Yes No hepatosplenomegaly present Extremity: COMMON NORMALS: normal to inspection, capillary refill normal, no clubbing, cyanosis or edema, no calf tenderness and no pedal edema Skin: COMMON NORMALS: no rashes or lesions noted GENERAL SKIN EXAM: no rashes or lesions noted Course Vital Signs: Vital signs: Vital Signs Temperature 97.9 F 06/08/20 14:32 Pulse Rate 82 06/08/20 21:34 Respiratory Rate 22 H 06/08/20 21:34 Blood Pressure 110/74 06/08/20 21:34 Pulse Oximetry 98 06/08/20 21:34 MDM - Seizure MDM Narrative: Medical decision making narrative: Transfer to [facility]. Patient has had recurrent seizures will need further evaluation we do not have neurology available here. She will need video monitored EEG. Lab Data: Labs: Lab Results 06/08/20 06/08/20 06/08/20 Range/Units 16:10 16:10 16:10 WBC 9.3 (4.5-13.0) 10^3/ uL RBC 4.50 (4.1-5.3) 10^6/u L Hgb 14.1 (11.5-15.3) g/dL Hct 41.8 (37.0-47.0) % MCV 92.9 (81-99) fL MCH 31.3 (28.0-34.0) pg MCHC 33.7 (30.0-36.0) g/dL RDW 12.0 L (12.1-15.1) % Plt Count 313 (130-400) 10^3/c mm MPV 8.9 (7.4-10.4) fL Neut % (Auto) 74.2 % Lymph % (Auto) 17.1 % [place] % (Auto) 7.1 % Eos % (Auto) 1.0 % Baso % (Auto) 0.4 % Neut # (Auto) 6.91 (1.8-8.0) 10^3/u L Lymph # (Auto) 1.6 (1.5-6.5) 10^3/u L [place] # (Auto) 0.7 (0.2-0.9) 10^3/u L Eos # (Auto) 0.1 (0.0-0.8) 10^3/u L Baso # (Auto) 0.0 (0.0-0.1) 10^3/u L Nucleated RBC % (a uto) 0 % Nucleated RBCs # 0.0 /100WBC Sodium 137 (136-145) mmol/L Potassium 3.6 (3.5-5.1) mmol/L Chloride 107 (98-107) mmol/L Carbon Dioxide 21 L (22-29) mmol/L Anion Gap 12.6 (5-19) BUN 11 (6-20) mg/dL Creatinine 0.9 (0.5-0.9) mg/dL GFR Calculation 80.7 L (90-130) mL/min Glucose 102 (65-115) mg/dL Calculated Osmolal ity 284 L (285-295) mOsm/k g Lactic Acid 1.0 (0.5-2.2) mmol/L Calcium 8.4 L (8.5-10.5) mg/dL Total Bilirubin 0.4 (0.15-1.2) mg/dL AST 24 (0-32) U/L ALT 26 (0-33) U/L Alkaline Phosphata se 68 (35-105) IU/L Creatine Kinase 158 (26-192) U/L Total Protein 6.8 (6.6-8.7) g/dL Albumin 4.3 (3.5-5.2) g/dL Globulin 2.5 (1.3-4.6) g/dL HCG, Qual (Negative) Urine Opiates Scre en (Negative) ng/mL Ur Barbiturates Sc reen (Negative) ng/mL Ur Phencyclidine S crn (Negative) ng/mL Ur Amphetamines Sc reen (Negative) ng/mL U Benzodiazepines Scrn (Negative) ng/mL Urine Cocaine Scre en (Negative) ng/mL U Marijuana (THC) Screen (Negative) ng/mL 06/08/20 06/08/20 Range/Units 16:10 16:23 WBC (4.5-13.0) 10^3/ uL RBC (4.1-5.3) 10^6/u L Hgb (11.5-15.3) g/dL Hct (37.0-47.0) % MCV (81-99) fL MCH (28.0-34.0) pg MCHC (30.0-36.0) g/dL RDW (12.1-15.1) % Plt Count (130-400) 10^3/c mm MPV (7.4-10.4) fL Neut % (Auto) % Lymph % (Auto) % [place] % (Auto) % Eos % (Auto) % Baso % (Auto) % Neut # (Auto) (1.8-8.0) 10^3/u L Lymph # (Auto) (1.5-6.5) 10^3/u L [place] # (Auto) (0.2-0.9) 10^3/u L Eos # (Auto) (0.0-0.8) 10^3/u L Baso # (Auto) (0.0-0.1) 10^3/u L Nucleated RBC % (a uto) % Nucleated RBCs # /100WBC Sodium (136-145) mmol/L Potassium (3.5-5.1) mmol/L Chloride (98-107) mmol/L Carbon Dioxide (22-29) mmol/L Anion Gap (5-19) BUN (6-20) mg/dL Creatinine (0.5-0.9) mg/dL GFR Calculation (90-130) mL/min Glucose (65-115) mg/dL Calculated Osmolal ity (285-295) mOsm/k g Lactic Acid (0.5-2.2) mmol/L Calcium (8.5-10.5) mg/dL Total Bilirubin (0.15-1.2) mg/dL AST (0-32) U/L ALT (0-33) U/L Alkaline Phosphata se (35-105) IU/L Creatine Kinase (26-192) U/L Total Protein (6.6-8.7) g/dL Albumin (3.5-5.2) g/dL Globulin (1.3-4.6) g/dL HCG, Qual Negative (Negative) Urine Opiates Scre en Negative (Negative) ng/mL Ur Barbiturates Sc reen Negative (Negative) ng/mL Ur Phencyclidine S crn Negative (Negative) ng/mL Ur Amphetamines Sc reen Negative (Negative) ng/mL U Benzodiazepines Scrn Negative (Negative) ng/mL Urine Cocaine Scre en Negative (Negative) ng/mL U Marijuana (THC) Screen Negative (Negative) ng/mL Discharge Plan Discharge Patient Disposition: Xfer Short-Term Hosp Referrals: Leelee Levy FNP [Primary Care Provider] - Coding Level of Care Code ED Materials Manager for Pradeep Fwd Exam Detailed
[2020-06-08] MEDS: LORazepam 2 mg/mL INJ 1 mL IVP ×2 (15:19→18:35)
[2020-06-08] MEDS: LORazepam 2 mg/mL INJ 1 mL (15:39)
[2020-06-08 16:20] LABS: Basophils % 0.4 %; Eosinophils # 0.1 10^3/uL (0.0-0.8); Hematocrit 41.8 % (37.0-47.0); Hemoglobin 14.1 g/dL (11.5-15.3); Lymphocytes # 1.6 10^3/uL (1.5-6.5); Lymphocytes % 17.1 %; Mean Corpuscular HGB Conc 33.7 g/dL (30.0-36.0); Mean Corpuscular Hemoglobin 31.3 pg (28.0-34.0); Mean Corpuscular Volume 92.9 fL (81-99); Mean Platelet Volume 8.9 fL (7.4-10.4); Monocytes # 0.7 10^3/uL (0.2-0.9); Monocytes % 7.1 %; Neutrophils # 6.91 10^3/uL (1.8-8.0); Neutrophils % 74.2 %; Nucleated Red Blood Cells % 0 %; Platelet Count 313 10^3/cmm (130-400); White Blood Count 9.3 10^3/uL (4.5-13.0)
[2020-06-08 16:37] LABS: Amphetamines Screen Urine Negative (Negative); Barbiturates Screen Urine Negative (Negative); Benzodiazepines Screen Urine Negative (Negative); Cocaine Screen Urine Negative (Negative); Opiate Screen Urine Negative (Negative); PCP Screen Urine Negative (Negative); THC Screen Urine Negative (Negative)
[2020-06-08 16:39] LABS: Alanine Aminotransferase 26 U/L (0-33); Albumin Level 4.3 g/dL (3.5-5.2); Alkaline Phosphatase 68 IU/L (35-105); Anion Gap 12.6 (5-19); Aspartate Amino Transferase 24 U/L (0-32); Blood Urea Nitrogen 11 mg/dL (6-20); Calcium 8.4 mg/dL (8.5-10.5); Carbon Dioxide 21 mmol/L (22-29); Chloride 107 mmol/L (98-107); Creatine Phosphokinase 158 U/L (26-192); Globulin 2.5 g/dL (1.3-4.6); Glomerular Filtration Rate 80.7 mL/min (90-130); Glucose 102 mg/dL (65-115); HCG, Serum Qual Negative (Negative); Osmolality Calculated 284 mOsm/kg (285-295); Potassium 3.6 mmol/L (3.5-5.1); Sodium 137 mmol/L (136-145); Total Bilirubin 0.4 mg/dL (0.15-1.2); Total Protein 6.8 g/dL (6.6-8.7)
[2020-06-08 16:58] VITALS: BP 134/85; PULSE 117; RESP 18; O2SAT 100
[2020-06-08 18:50] VITALS: BP 106/78; PULSE 111; RESP 18; O2SAT 97
[2020-06-08 19:48] VITALS: BP 112/65; RESP 107; O2SAT 97
--- NOTE | 2020-06-08 19:49 | PC.NURSE ---
Called report to Samantha Antony RN at [facility] at 1910
[2020-06-08 20:03] VITALS: BP 112/74; PULSE 125; RESP 34; O2SAT 100
[2020-06-08 21:34] VITALS: BP 110/74; PULSE 82; RESP 22; O2SAT 98
--- NOTE | 2020-06-08 22:12 | PC.NURSE ---
[facility] transferred patient to [facility]
== END 2020-06-08 22:30 | disposition short-term general hospital (02) ==
PROVIDERS: Physician Assistant; Emergency Provider Family Medicine; PCP Nurse Practitioner Family
DX: R56.9 Unspecified convulsions (principal)
CPT/HCPCS: 80053; 80306; 82550; 83605; 84703; 85025; 96374; 96375; 96376; 99283; J1953; J2060

== ENCOUNTER → 2020-06-10 10:02 | Outpatient (BNVA) | payer MEDICAID, SELFPAY | PROVIDERS: PCP Nurse Practitioner Family; Visit Provider Psychiatry & Neurology Psychiatry | DX: F41.1 Generalized anxiety disorder (principal); F33.1 Major depressive disorder, recurrent, moderate; Z86.59 Personal history of other mental and behavioral disorders; G47.411 Narcolepsy with cataplexy | CPT/HCPCS: 99214 ==

== ENCOUNTER → 2020-06-22 14:49 | Outpatient (BNVA) | payer MEDICAID, SELFPAY | PROVIDERS: PCP Nurse Practitioner Family; Visit Provider Specialist | DX: G47.419 Narcolepsy without cataplexy (principal); F44.5 Conversion disorder with seizures or convulsions | CPT/HCPCS: 99215 ==

== ENCOUNTER → 2020-07-01 08:22 | Outpatient (BNVA) | payer MEDICAID, SELFPAY | PROVIDERS: PCP Nurse Practitioner Family; Visit Provider Psychiatry & Neurology Psychiatry | DX: F41.1 Generalized anxiety disorder (principal); Z86.59 Personal history of other mental and behavioral disorders; F33.1 Major depressive disorder, recurrent, moderate | CPT/HCPCS: 99213 ==

== ENCOUNTER → 2020-12-09 13:21 | Outpatient (BNVA) | payer MEDICAID, SELFPAY | PROVIDERS: PCP Nurse Practitioner Family; Visit Provider Nurse Practitioner Women's Health | DX: N92.6 Irregular menstruation, unspecified (principal) | CPT/HCPCS: 81025 ==

== ENCOUNTER → 2020-12-10 15:13 | Outpatient (BNVA) | payer MEDICAID, SELFPAY | PROVIDERS: PCP Nurse Practitioner Family; Visit Provider Obstetrics & Gynecology | DX: R30.0 Dysuria (principal) | CPT/HCPCS: 81000 ==

== ENCOUNTER → 2020-12-18 17:19 | Outpatient (BNVA) | payer MEDICAID, SELFPAY | PROVIDERS: PCP Nurse Practitioner Family; Visit Provider Registered Nurse Neonatal Intensive Care | DX: N39.0 Urinary tract infection, site not specified (principal); B37.3 Candidiasis of vulva and vagina | CPT/HCPCS: 81000 ==

== ENCOUNTER → 2020-12-31 09:22 | Outpatient (BNVA) | payer MEDICAID, SELFPAY | PROVIDERS: PCP Nurse Practitioner Family; Visit Provider Nurse Practitioner Women's Health | DX: Z34.80 Encounter for supervision of other normal pregnancy, unspecified trimester (principal) | CPT/HCPCS: 81000 ==

== ENCOUNTER 2021-01-09 10:56 | Emergency (ER) | payer OTHER, MEDICAID, SELFPAY ==
[2021-01-09 11:06] VITALS: BP 131/72; PULSE 88; RESP 20; TEMP 36.6; O2SAT 100; BMI 27.9
[2021-01-09] MEDS: LORazepam 2 mg/mL INJ 1 mL (11:11)
[2021-01-09 11:12] LABS: Glucose Point of Care 91 mg/dL (70-110)
--- NOTE | 2021-01-09 11:12 | W.ED.GENADLT ---
HPI - General Adult General: Chief complaint: Seizure Stated complaint: 9 WKS : SEIZING X 3 HRS Time Seen by Provider: 01/09/21 11:09 History of Present Illness: HPI narrative: HPI: [20]yo patient 9 weeks w/ hx of non-epileptic seizures brought in by significant other for concerns for seizures at home. Per boyfirend, patient has been stressed out by home situation and since 8am this morning has had shaking of the arms and legs. Patient is writhing in bed and agitated. Patient attempted to get out of bed multiple times. Hx is limited by severity of disease. Patient has intact occular reflexes and resisting any attempt at interventions. Onset: 2 hrs ago Duration: ongoing Location: home Review of Systems Narrative: Constitutional: No fever, no chills. HEENT: No vision changes CV: No chest pain, no palpitations PULM: No productive cough, no dyspnea. GI: No abdominal pain, no N/V/D. : No Dysuria MSKEL: No muscle pain. +shaking in the arms and legs SKIN: No new rashes, no lesions. NEURO: No headache, no focal weakness. 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 Manages with communicative behavior. History of reactive attachment disorder Major depressive disorder, recurrent, moderate Mitral valve prolapse Surgical History H/O eye surgery lazy eye correction Family History Other Adopted Female Reproductive History: Date of last menstrual period: 06/03/20 Physical Exam Narrative: EXAM NARRATIVE: Head: Atraumatic Eyes: PERRL, conjunctiva without injection, eyes tracking ENT: Mucous membrane moist NECK: Supple without lymphadenopathy LUNGS: LCTAB CV: RRR ABDOMEN: Soft, nontender in all quadrants, no guarding or rebound tenderness, no CVA or flank tenderness bilaterally EXTREMITY: Normal ROM SKIN: No rash or erythema NEURO: Unable ot assess given underlying neurological condition Psych: Unable to assess Course Vital Signs: Vital signs: Vital Signs Temperature 97.9 F 01/09/21 14:37 Pulse Rate 88 01/09/21 14:37 Respiratory Rate 20 H 01/09/21 14:37 Blood Pressure 131/72 01/09/21 14:37 Pulse Oximetry 100 01/09/21 14:37 MDM - General Adult MDM Narrative: Medical decision making narrative: [20]yo patient presents with observed shaking-jerking movements in ED today. In contrast from findings in normal seizure activity, patient had: ? ABSENT postictal confusion ? ABSENT physical injury ? Shaking episodes lasting for 2-6 seconds at a time ? Flaccid limbs during the shaking episodes ? Withdrawn of extremities from painful stimuli while shaking ? Voluntary eye movements away from the examiner with forceful closing of the eyelids on on corneal testing. ? Occasional cries and moaning during the shaking episode(s) Taken together, symptoms more consistent with Pseudo-seizures and not concerning for seizure. Patient received 2mg of ativan on arrival. Patient is now how quiet and non combative. [1:30pm] On reassessment, patient is back to baseline, now tolerating PO, ambulating, without neurological complaints. Neuro exam at this time back to baseline and wnl. Patient denied any prior diagnosis of seizure and currently denies HI/SI. I had a lengthy discussion with the patient to identify the source of the distressing incident(s) which are likely stress-related from events at home. I have also discussed with the patient the importance of following up with Neurology and possibly psychiatry to further evaluate and identify the causes of these symptoms. Patient verbalizes understanding and agrees to follow up with specialists. IUP confirmed on US. FHR of 180. Findings discussed with patient with recommendation for close outpatient followup given tachycardia. Disposition: Discharge. Given strict return precautions and follow up with primary MD within 24-48 hours for further evaluation including a referral to psychiatry and neurology for further testing. Lab Data: Labs: Lab Results 01/09/21 01/09/21 01/09/21 11:09 11:40 11:40 WBC 13.4 10^3/uL H 10 ^3/uL (4.5-13.0) RBC 4.52 10^6/uL 10^6 /uL (4.1-5.3) Hgb 14.0 g/dL g/dL (11.5-15.3) Hct 41.2 % % (37.0-47.0) MCV 91.2 fl fl (81-99) MCH 31.0 pg pg (28.0-34.0) MCHC 34.0 g/dL g/dL (30.0-36.0) RDW 12.1 % % (12.1-15.1) Plt Count 321 10^3/cmm 10^3 /cmm (130-400) MPV 9.8 fL fL (7.4-10.4) Neut % (Auto) 72.8 % % Lymph % (Auto) 17.9 % % Pershing % (Auto) 7.0 % % Eos % (Auto) 1.6 % % Baso % (Auto) 0.3 % % Neut # (Auto) 9.75 10^3/uL H 10 ^3/uL (1.8-8.0) Lymph # (Auto) 2.4 10^3/uL 10^3/ uL (1.5-6.5) Pershing # (Auto) 0.9 10^3/uL 10^3/ uL (0.2-0.9) Eos # (Auto) 0.2 10^3/uL 10^3/ uL (0.0-0.8) Baso # (Auto) 0.0 10^3/uL 10^3/ uL (0.0-0.1) Nucleated RBC % (a uto) 0 % % Nucleated RBCs # 0.0 /100WBC /100W BC Sodium 136 mmol/L mmol/L (136-145) Potassium 3.3 mmol/L L mmol /L (3.5-5.1) Chloride 103 mmol/L mmol/L (98-107) Carbon Dioxide 21 mmol/L L mmol/ L (22-29) Anion Gap 15.3 (5-19) BUN 5 mg/dL L mg/dL (6-20) Creatinine 0.4 mg/dL L mg/dL (0.5-0.9) GFR Calculation 203.5 mL/min H mL /min (90-130) Glucose 83 mg/dL mg/dL (65-115) POC Glucose 91 mg/dL mg/dL (70-110) Calculated Osmolal ity 278 mOsm/kg L mOs m/kg (285-295) Calcium 9.0 mg/dL mg/dL (8.5-10.5) Total Bilirubin 0.4 mg/dL mg/dL (0.15-1.2) AST 19 U/L U/L (0-32) ALT 16 U/L U/L (0-33) Alkaline Phosphata se 68 IU/L IU/L (35-105) Total Protein 6.9 g/dL g/dL (6.6-8.7) Albumin 4.1 g/dL g/dL (3.5-5.2) Globulin 2.8 g/dL g/dL (1.3-4.6) Lipase 23 U/L U/L (13-60) Ser , Destinee i-Qnt Blood Type Rho(D) Type 01/09/21 01/09/21 11:40 11:40 WBC RBC Hgb Hct MCV MCH MCHC RDW Plt Count MPV Neut % (Auto) Lymph % (Auto) Pershing % (Auto) Eos % (Auto) Baso % (Auto) Neut # (Auto) Lymph # (Auto) Pershing # (Auto) Eos # (Auto) Baso # (Auto) Nucleated RBC % (a uto) Nucleated RBCs # Sodium Potassium Chloride Carbon Dioxide Anion Gap BUN Creatinine GFR Calculation Glucose POC Glucose Calculated Osmolal ity Calcium Total Bilirubin AST ALT Alkaline Phosphata se Total Protein Albumin Globulin Lipase Ser , Destinee i-Qnt 92066.00 mIU/mL m IU/mL Blood Type O Positive Rho(D) Type Positive Imaging Data^: Other Imaging: Radiologist's impression: [address] [id number] ReportSigned Patient: Salazar Dsouza #: [id number]: [id number]#:[id number]/Sex: 20 / FADM Date: 01/09/21Loc: ERRoom/Bed:Attending Dr: Ordering Provider/Ordering MD: Rikki Michel MD Date of Service: 01/09/21 Procedure(s): US OB limited [id number] Accession Number(s): [id number] Report Number: [id number] PROCEDURE INFORMATION: Exam: US , Limited Exam date and time: 01/09/2021 11:22 AM Age: 20 years old Clinical indication: Lmp or gestational age (in weeks): 8 weeks 5 days; Other: Pseudoseizure; ; Additional info: Eval heart tone, pseudseizure TECHNIQUE: Imaging protocol: Real-time ultrasound of the maternal uterus with image documentation. Exam focused on the clinical indication. COMPARISON: US OB transvaginal [facility] 12/24/2020 8:10 AM FINDINGS: Gestation: Live intrauterine gestation. heart rate measures 180 bpm. Placenta: Small subchorionic hemorrhage measuring up to 3 cm in length. BIOMETRY: Gestational age (AUA): [place]-rump length equals 2.24 cm with an estimated gestational age of 8 weeks 6 days. This represents appropriate interval growth from prior ultrasound dated 12/24/2020. US/ OB limited [id number] IMPRESSION: 1. Live intrauterine gestation with appropriate interval growth. 2. Small subchorionic hemorrhage. Radiation Dose CTDIVOL = (mGy): DLP = (mGy-cm) Dictated By:Wilian Yang DOSigned By:Wilian Yang DOSigned Date/Time:01/09/21 1245DD/ 1122 Discharge Plan Discharge Patient Disposition: Home Clinical Impression: Altered mental status Condition: Stable Prescriptions: No Action cranberry 400 mg capsule See Rx Instructions PO DAILY RF: 0 prenat.vits,charles,[id number] Tablet 1 tab PO DAILY RF: 0 latanoprost 0.005 % drops 1 drp ophthalmic (eye) BEDTIME RF: 0 ascorbic acid (vitamin C) [Vitamin C] 1,000 mg Tablet 1,000 mg PO DAILY RF: 0 Discharge Orders: Discharge ED (Routine); Ordered 01/09/21 Ordered By: Rikki Michel Referrals: Leelee Levy FNP [Primary Care Provider] - Discharge Diet: Advance as tolerated Discharge Activity: Resume usual activity Patient Instructions: Nonepileptic Seizures (ED) Activity Restrictions/Additional Instructions: Come back to the emergency room you have any worsening symptoms, stress, thoughts of hurting yourself or other people, or new or concerning complaints. Please follow up with your OB provider for further evaluation of your symptoms. Coding Level of Care Code ED Barrel Endshake Adjuster for Pradeep Yañez
--- NOTE | 2021-01-09 11:22 | USR_ITS ---
PROCEDURE INFORMATION: Exam: US , Limited Exam date and time: 01/09/2021 11:22 AM Age: 20 years old Clinical indication: Lmp or gestational age (in weeks): 8 weeks 5 days; Other: Pseudoseizure; ; Additional info: Eval heart tone, pseudseizure TECHNIQUE: Imaging protocol: Real-time ultrasound of the maternal uterus with image documentation. Exam focused on the clinical indication. COMPARISON: US OB transvaginal WHCC 12/24/2020 8:10 AM FINDINGS: Gestation: Live intrauterine gestation. heart rate measures 180 bpm. Placenta: Small subchorionic hemorrhage measuring up to 3 cm in length. BIOMETRY: Gestational age (AUA): [place]-rump length equals 2.24 cm with an estimated gestational age of 8 weeks 6 days. This represents appropriate interval growth from prior ultrasound dated 12/24/2020. US/US OB limited [id number] IMPRESSION: 1. Live intrauterine gestation with appropriate interval growth. 2. Small subchorionic hemorrhage. Radiation Dose CTDIVOL = (mGy): DLP = (mGy-cm)
[2021-01-09 12:03] LABS: Basophils % 0.3 %; Eosinophils # 0.2 10^3/uL (0.0-0.8); Eosinophils % 1.6 %; Hematocrit 41.2 % (37.0-47.0); Lymphocytes # 2.4 10^3/uL (1.5-6.5); Lymphocytes % 17.9 %; Mean Corpuscular Volume 91.2 fl (81-99); Mean Platelet Volume 9.8 fL (7.4-10.4); Monocytes # 0.9 10^3/uL (0.2-0.9); Neutrophils # 9.75 10^3/uL (1.8-8.0); Neutrophils % 72.8 %; Nucleated Red Blood Cells % 0 %; Platelet Count 321 10^3/cmm (130-400); Red Blood Count 4.52 10^6/uL (4.1-5.3); Red Cell Distribution Width 12.1 % (12.1-15.1); White Blood Count 13.4 10^3/uL (4.5-13.0)
[2021-01-09 12:28] LABS: Alanine Aminotransferase 16 U/L (0-33); Albumin Level 4.1 g/dL (3.5-5.2); Alkaline Phosphatase 68 IU/L (35-105); Anion Gap 15.3 (5-19); Aspartate Amino Transferase 19 U/L (0-32); Blood Urea Nitrogen 5 mg/dL (6-20); Carbon Dioxide 21 mmol/L (22-29); Chloride 103 mmol/L (98-107); Globulin 2.8 g/dL (1.3-4.6); Glomerular Filtration Rate 203.5 mL/min (90-130); Glucose 83 mg/dL (65-115); Lipase 23 U/L (13-60); Osmolality Calculated 278 mOsm/kg (285-295); Potassium 3.3 mmol/L (3.5-5.1); Sodium 136 mmol/L (136-145); Total Bilirubin 0.4 mg/dL (0.15-1.2); Total Protein 6.9 g/dL (6.6-8.7)
--- NOTE | 2021-01-09 13:43 | PC.NURSE ---
pt continues to have psudoseizures. pt constantly protects face blinks eyes rolls to left side and starts seizing. this nurse witnessed the pt attempting to roll to left side and rolled pt back onto back and checked eyes for reflexes and the told the pt to stop at which time pt tilted head back and held head back with eyes open looking around the room. pt family then requested to take with this nurse outside of room where she told this nurse that he was rude and didnt know anything about psudoseizures and needed to know his training.
[2021-01-09 14:37] VITALS: BP 131/72; PULSE 88; RESP 20; TEMP 36.6; O2SAT 100
== END 2021-01-09 14:37 | disposition home or self-care (01) ==
PROVIDERS: Emergency Provider Emergency Medicine; PCP Nurse Practitioner Family
DX: O26.891 Other specified pregnancy related conditions, first trimester (principal); R41.82 Altered mental status, unspecified; Z3A.09 9 weeks gestation of pregnancy
CPT/HCPCS: 36416; 76815; 80053; 82962; 83690; 84702; 85025; 86900; 99282; J2060

== ENCOUNTER → 2021-01-13 13:52 | Outpatient (BNVA) | payer OTHER, MEDICAID, SELFPAY | PROVIDERS: PCP Nurse Practitioner Family; Visit Provider Obstetrics & Gynecology | DX: Z34.80 Encounter for supervision of other normal pregnancy, unspecified trimester (principal) | CPT/HCPCS: 80307; 81000; 84443; 85025; 86592; 86762; 86803; 86850; 86900; 87086; 87340; 87806 ==

== ENCOUNTER 2021-01-19 23:57 | Emergency (ER) | payer OTHER, MEDICAID, SELFPAY ==
[2021-01-19 23:59] VITALS: BP 121/74; PULSE 73; RESP 18; TEMP 36.6; O2SAT 98; BMI 28.7
--- NOTE | 2021-01-20 00:22 | USR_ITS ---
PROCEDURE INFORMATION: Exam: US , Limited Exam date and time: 01/20/2021 12:22 AM Age: 20 years old Clinical indication: complicated by abdominal or pelvic pain; Lower; First trimester (<14 weeks 0 days); Gestational age or lmp: 10 week 2 day; ; Additional info: Eval iup TECHNIQUE: Imaging protocol: Real-time ultrasound of the maternal uterus with image documentation. Exam focused on the clinical indication. COMPARISON: OB limited [id number] 01/09/2021 12:01 PM FINDINGS: Gestation: Single intrauterine gestation. Yolk sac is present. heart rate: heart rate = 185 bpm. BIOMETRY: Gestational age (AUA): Estimated gestational age = 10 weeks/2 days. [place]-Rump length: [place]-rump length = 3.54 cm. MATERNAL: Right adnexa: Normal ovarian blood flow. Right ovary is normal and measures 4.1 x 2.3 x 3.8 cm. Normal ovarian blood flow. Left adnexa: Left ovary is normal and measures 2.1 x 3.1 x 1.9 cm . US/ OB limited [id number] IMPRESSION: Single viable intrauterine gestation with an estimated gestational age of 10 weeks/2 days and an estimated date of delivery is 08/15/2021. Radiation Dose CTDIVOL = (mGy): DLP = (mGy-cm)
[2021-01-20 01:26] LABS: Basophils # 0.1 10^3/uL (0.0-0.1); Basophils % 0.4 %; Eosinophils # 0.2 10^3/uL (0.0-0.8); Eosinophils % 1.6 %; Hematocrit 32.8 % (37.0-47.0); Hemoglobin 11.9 g/dL (11.5-15.3); Lymphocytes # 2.3 10^3/uL (1.5-6.5); Lymphocytes % 19.2 %; Mean Corpuscular HGB Conc 36.3 g/dL (30.0-36.0); Mean Corpuscular Hemoglobin 31.2 pg (28.0-34.0); Mean Corpuscular Volume 85.9 fl (81-99); Mean Platelet Volume 9.6 fL (7.4-10.4); Monocytes # 0.8 10^3/uL (0.2-0.9); Monocytes % 6.4 %; Neutrophils # 8.67 10^3/uL (1.8-8.0); Neutrophils % 71.9 %; Nucleated Red Blood Cells % 0 %; Platelet Count 290 10^3/cmm (130-400); Red Blood Count 3.82 10^6/uL (4.1-5.3); Red Cell Distribution Width 12.2 % (12.1-15.1); White Blood Count 12.1 10^3/uL (4.5-13.0)
[2021-01-20 01:31] LABS: Alanine Aminotransferase 13 U/L (0-33); Albumin Level 3.9 g/dL (3.5-5.2); Alkaline Phosphatase 62 IU/L (35-105); Anion Gap 16.5 (5-19); Aspartate Amino Transferase 17 U/L (0-32); Blood Urea Nitrogen 8 mg/dL (6-20); Calcium 8.3 mg/dL (8.5-10.5); Carbon Dioxide 18 mmol/L (22-29); Chloride 105 mmol/L (98-107); Globulin 2.7 g/dL (1.3-4.6); Glomerular Filtration Rate 157.3 mL/min (90-130); Glucose 82 mg/dL (65-115); Lipase 25 U/L (13-60); Osmolality Calculated 279 mOsm/kg (285-295); Potassium 3.5 mmol/L (3.5-5.1); Sodium 136 mmol/L (136-145); Total Bilirubin 0.2 mg/dL (0.15-1.2); Total Protein 6.6 g/dL (6.6-8.7)
--- NOTE | 2021-01-20 04:30 | ED_ITS ---
HPI - General Adult General: Chief complaint: Abdominal Pain Stated complaint: cramping 10 weeks Time Seen by Provider: 01/20/21 00:13 History of Present Illness: HPI narrative: Patient is a 20-year-old female G2, P1 who presents the emergency room with pelvic cramps x1 day. Patient tells me that she has had 1 prior miscarriages and is concerned that given the pelvic cramps that she may be experiencing a miscarriage at this time. Patient denies any vaginal bleeding, vaginal discharge, regular contraction, passage of clots, dysuria/hematuria, melena/hematochezia, fever/chills, or other complaints at this time., Patient recently had an ultrasound which confirmed IUP on 01/11/2021. Onset: 1 day ago Duration:1 day Location:home Severity:moderate Review of Systems Narrative: Constitutional: No fever, no chills. HEENT: No vision changes CV: No chest pain, no palpitations PULM: no cough, no dyspnea. GI: No abdominal pain, no N/V/D. : No dysuria, +pelvic cramps MSKEL: No muscle pain SKIN: No new rashes, no lesions. NEURO: No headache, no focal weakness. HEME: No visible bruises PSYCH: Normal mood PFSH ED PFSH: Medical History Functional neurological symptom disorder with attacks or seizures PTSD pseudoseizures--evaluated by [facility]. Manages with communicative behavior. History of reactive attachment disorder Major depressive disorder, recurrent, moderate Mitral valve prolapse Surgical History H/O eye surgery lazy eye correction Family History Other Adopted Female Reproductive History: Date of last menstrual period: 11/03/20 : 2 Physical Exam Narrative: EXAM NARRATIVE: Head: Atraumatic Eyes: PERRL, conjunctiva without injection ENT: Mucous membrane moist NECK: Supple, ROM intact LUNGS: LCTAB, no crackles/rhonchi CV: RRR ABDOMEN: Soft, nontender in all quadrants EXTREMITY: Normal ROM SKIN: No rash or erythema NEURO: Awake and alert, no focal motor deficits PSYCH: Normal mood and affect : Exam deferred per patient Course Vital Signs: Vital signs: Vital Signs Temperature 97.9 F 01/19/21 23:59 Pulse Rate 73 01/19/21 23:59 Respiratory Rate 18 01/19/21 23:59 Blood Pressure 121/74 01/19/21 23:59 Pulse Oximetry 98 01/19/21 23:59 MDM - General Adult MDM Narrative: Medical decision making narrative: 20-year-old female presents the emergency room pelvic cramps x1 day. On exam, patient has no focal tenderness to palpation. exam deferred today. Patient has no vaginal bleeding or discharge. H&H appears to be stable. Ultrasound showed IUP with heart rate of 185. At this present time, I do not suspect the patient is having an intermittent spontaneous . I have given patient close follow-up with her OB doctor. I explained to patient that if she is having regular contractions or vaginal bleeding to come back to the emergency room. Offered UA testing today but patient declined citing that she will see Dr. Clark on Sunday who will do the test. Unable to assess if pain is related to UTI today. Rx tylenol PRN pain Disposition: Discharge. Patient counseled regarding diagnostic impression, treatment plan. Patient given ED strict return precautions to return for continuation, worsening, or development of new symptoms. Instructed to f/u w/ PCP and OB provider regarding symptoms today. Patient verbalized understanding. Lab Data: Labs: Lab Results 01/20/21 01/20/21 01/20/21 00:42 00:42 00:42 WBC 12.1 10^3/uL 10^3 /uL (4.5-13.0) RBC 3.82 10^6/uL L 10 ^6/uL (4.1-5.3) Hgb 11.9 g/dL g/dL (11.5-15.3) Hct 32.8 % L % (37.0-47.0) MCV 85.9 fl fl (81-99) MCH 31.2 pg pg (28.0-34.0) MCHC 36.3 g/dL H g/dL (30.0-36.0) RDW 12.2 % % (12.1-15.1) Plt Count 290 10^3/cmm 10^3 /cmm (130-400) MPV 9.6 fL fL (7.4-10.4) Neut % (Auto) 71.9 % % Lymph % (Auto) 19.2 % % Alexander % (Auto) 6.4 % % Eos % (Auto) 1.6 % % Baso % (Auto) 0.4 % % Neut # (Auto) 8.67 10^3/uL H 10 ^3/uL (1.8-8.0) Lymph # (Auto) 2.3 10^3/uL 10^3/ uL (1.5-6.5) [place] # (Auto) 0.8 10^3/uL 10^3/ uL (0.2-0.9) Eos # (Auto) 0.2 10^3/uL 10^3/ uL (0.0-0.8) Baso # (Auto) 0.1 10^3/uL 10^3/ uL (0.0-0.1) Nucleated RBC % (a uto) 0 % % Nucleated RBCs # 0.0 /100WBC /100W BC Sodium 136 mmol/L mmol/L (136-145) Potassium 3.5 mmol/L mmol/L (3.5-5.1) Chloride 105 mmol/L mmol/L (98-107) Carbon Dioxide 18 mmol/L L mmol/ L (22-29) Anion Gap 16.5 (5-19) BUN 8 mg/dL mg/dL (6-20) Creatinine 0.5 mg/dL mg/dL (0.5-0.9) GFR Calculation 157.3 mL/min H mL /min (90-130) Glucose 82 mg/dL mg/dL (65-115) Calculated Osmolal ity 279 mOsm/kg L mOs m/kg (285-295) Calcium 8.3 mg/dL L mg/dL (8.5-10.5) Total Bilirubin 0.2 mg/dL mg/dL (0.15-1.2) AST 17 U/L U/L (0-32) ALT 13 U/L U/L (0-33) Alkaline Phosphata se 62 IU/L IU/L (35-105) Total Protein 6.6 g/dL g/dL (6.6-8.7) Albumin 3.9 g/dL g/dL (3.5-5.2) Globulin 2.7 g/dL g/dL (1.3-4.6) Lipase 25 U/L U/L (13-60) Ser , [place]Qnt 61306.00 mIU/mL m IU/mL Imaging Data^: Other Imaging: Radiologist's impression: [id number] [place], [place] [id number] ReportSigned Patient: Salazar Dsouza #: [id number]: [id number] ct#:[id number]/Sex: 20 / FADM Date: 01/19/21Loc: ERRoom/Bed:Attending Dr: Ordering Provider/Ordering MD: Rikki Michel MD Date of Service: 01/20/21 Procedure(s): US OB limited [id number] Accession Number(s): [id number] Report Number: [id number] PROCEDURE INFORMATION: Exam: US , Limited Exam date and time: 01/20/2021 12:22 AM Age: 20 years old Clinical indication: complicated by abdominal or pelvic pain; Lower; First trimester (<14 weeks 0 days); Gestational age or lmp: 10 week 2 day; ; Additional info: Eval iup TECHNIQUE: Imaging protocol: Real-time ultrasound of the maternal uterus with image documentation. Exam focused on the clinical indication. COMPARISON: US OB limited [id number] 01/09/2021 12:01 PM FINDINGS: Gestation: Single intrauterine gestation. Yolk sac is present. heart rate: heart rate = 185 bpm. BIOMETRY: Gestational age (AUA): Estimated gestational age = 10 weeks/2 days. [place]-Rump length: [place] length = 3.54 cm. MATERNAL: Right adnexa: Normal ovarian blood flow. Right ovary is normal and measures 4.1 x 2.3 x 3.8 cm. Normal ovarian blood flow. Left adnexa: Left ovary is normal and measures 2.1 x 3.1 x 1.9 cm . US/US OB limited [id number] IMPRESSION: Single viable intrauterine gestation with an estimated gestational age of 10 weeks/2 days and an estimated date of delivery is 08/15/2021. Radiation Dose CTDIVOL = (mGy): DLP = (mGy-cm) Dictated By:Jennifer Crawford By:Jennifer Crawford Date/Time:01/20/21 0434DD/ 0022 Discharge Plan Discharge Patient Disposition: Home Clinical Impression: Pelvic cramping, Pelvic cramping in antepartum period Condition: Stable Prescriptions: New acetaminophen 500 mg tablet 500 mg PO Q6H PRN (Reason: pain) 5 Days Qty: 20 RF: 0 No Action cranberry 400 mg capsule See Rx Instructions PO DAILY RF: 0 prenat.vits,charles,bbe-edza-mefxf Tablet 1 tab PO DAILY RF: 0 latanoprost 0.005 % drops 1 drp ophthalmic (eye) BEDTIME RF: 0 ascorbic acid (vitamin C) [Vitamin C] 1,000 mg Tablet 1,000 mg PO DAILY RF: 0 Discharge Orders: Discharge ED (Routine); Ordered 01/20/21 Ordered By: Rikki Michel Referrals: Leelee Levy, TOXICOLOGY SUPERVISOR [Primary Care Provider] - Discharge Diet: Advance as tolerated Discharge Activity: Resume usual activity Patient Instructions: Pelvic Pain (ED) Activity Restrictions/Additional Instructions: Come back to the emergency room if having regular contractions, fever chills, drainage, vaginal bleeding, or any new or concerning complaints. 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
[2021-01-20 05:13] VITALS: BP 98/61; PULSE 79; O2SAT 99
== END 2021-01-20 05:15 | disposition home or self-care (01) ==
PROVIDERS: Emergency Provider Emergency Medicine; PCP Nurse Practitioner Family
DX: R10.2 Pelvic and perineal pain (principal); Z3A.10 10 weeks gestation of pregnancy; O09.291 Supervision of pregnancy with other poor reproductive or obstetric history, first trimester
CPT/HCPCS: 76815; 80053; 83690; 84702; 85025; 99283

== ENCOUNTER → 2021-01-24 14:47 | Outpatient (BNVA) | payer OTHER, MEDICAID, SELFPAY | PROVIDERS: PCP Nurse Practitioner Family; Visit Provider Obstetrics & Gynecology | DX: Z34.80 Encounter for supervision of other normal pregnancy, unspecified trimester (principal) | CPT/HCPCS: 81000; 87491; 87591; 87661 ==

== ENCOUNTER 2021-02-06 13:15 | Emergency (ER) | payer OTHER, MEDICAID, SELFPAY ==
[2021-02-06 13:27] VITALS: BP 112/73; PULSE 79; RESP 16; TEMP 36.8; O2SAT 98
--- NOTE | 2021-02-06 13:45 | USR_ITS ---
PROCEDURE INFORMATION: Exam: US , Limited Exam date and time: 02/06/2021 1:45 PM Age: 20 years old Clinical indication: complicated by abdominal or pelvic pain; Other: Lower abdomen and pelvis; Gestational age or lmp: 12 weeks 5 days (per patient); ; Additional info: Confirm iup TECHNIQUE: Imaging protocol: Real-time ultrasound of the maternal uterus with image documentation. Exam focused on the clinical indication. COMPARISON: US OB limited [id number] 01/20/2021 3:40 AM FINDINGS: Gestation: There is an intrauterine gestational sac with a fetus and yolk sac. New lines the fetus is in breech presentation. The heart rate is 167 BPM. Amniotic fluid is normal in volume. The placenta has not formed. BIOMETRY: Gestational age (AUA): Ultrasound gestational age 13 weeks 2 days NIKO 08/12/2021 [place]Rump length: 7 cm 13 weeks 1 day NIKO 08/13/2021. MATERNAL: Uterus: The uterus measures 12.8 cm x 8 cm x 9 cm. There is normal myometrium. Cervix: The cervix measures 3.2 cm in length the cervical os is closed. Right ovary/adnexa: The right ovary measures 2.4 cm x 1 cm x 1.8 cm. Normal vascular flow. Left ovary/adnexa: The left ovary measures 3.2 cm x 2.5 cm x 3.1 cm. There is normal vascular flow . Urinary bladder: The urinary bladder is unremarkable. US/US OB limited [id number] IMPRESSION: 1. There is a intrauterine gestational sac with a living fetus. 2. Gestational age 13 weeks 2 day NIKO 08/12/2021. 3. Normal uterine myometrium. 4. Normal bilateral ovaries 5. Unremarkable urinary bladder Radiation Dose CTDIVOL = (mGy): DLP = (mGy-cm)
--- NOTE | 2021-02-06 13:46 | USR_ITS ---
PROCEDURE INFORMATION: Exam: US Abdomen, Limited; Appendix Exam date and time: 02/06/2021 1:46 PM Age: 20 years old Clinical indication: Abdominal pain; Other: Lower abdomen/ pelvis; ; Additional info: Eval ppendcitis TECHNIQUE: Imaging protocol: US abdomen. Real time ultrasound with image documentation. Limited exam focused on the appendix. COMPARISON: US OB limited [id number] 01/20/2021 3:40 AM FINDINGS: Appendix: The appendix is not visible. No evidence of acute appendicitis or right lower quadrant inflammatory process. US/US appendix [id number] IMPRESSION: 1. The appendix is not visible. 2. Negative for right lower quadrant inflammatory changes Radiation Dose CTDIVOL = (mGy): DLP = (mGy-cm)
--- NOTE | 2021-02-06 13:55 | W.ED.GENADLT ---
HPI - General Adult General: Chief complaint: Abdominal Pain Stated complaint: LOWER ABD PAIN: 12 WK/5 DAYS Time Seen by Provider: 02/06/21 13:33 History of Present Illness: HPI narrative: Patient is a 20-year-old female G2, P1 at 12 weeks 5 days presents emergency room with lower abdominal cramps radiating to the umbilicus since 11 PM today. Patient says the pain last for a few seconds at a time and is a sharp pain. Patient denies any new vaginal discharge, pelvic cramps, nausea/vomiting, fever/chills, decreased p.o. intake. Patient denies any trauma or recent injuries. Is any new vaginal discharge. Has no urinary symptoms today. Denies any diarrhea, melena or hematochezia. Patient has no prior abdominal surgeries, no history kidney stones. Onset:11pm yesterday Duration:14 hrs ago Location:home Severity:moderate Review of Systems Narrative: Constitutional: No fever, no chills. HEENT: No vision changes CV: No chest pain, no palpitations PULM: no cough, no dyspnea. GI: +lower abdominal pain, no N/V/D. : No dysuria MSKEL: No muscle pain SKIN: No new rashes, no lesions. NEURO: No headache, no focal weakness. HEME: No visible bruises PSYCH: Normal mood PFSH ED PFSH: Medical History Functional neurological symptom disorder with attacks or seizures PTSD pseudoseizures--evaluated by [facility]. Manages with communicative behavior. History of reactive attachment disorder Major depressive disorder, recurrent, moderate Mitral valve prolapse Surgical History H/O eye surgery lazy eye correction Family History Other Adopted Female Reproductive History: Date of last menstrual period: 11/03/20 Physical Exam Narrative: EXAM NARRATIVE: Head: Atraumatic Eyes: PERRL, conjunctiva without injection ENT: Mucous membrane moist NECK: Supple, ROM intact LUNGS: LCTAB, no crackles/rhonchi CV: RRR ABDOMEN: Soft, no focal TTP. NO guarding rebound, guarding, rigidity. No CVA tenderness to percussion. Neg Mcdonald/Neg McBurney's point tenderness, no suprabupic tenderness to palpation. EXTREMITY: Normal ROM SKIN: No rash or erythema NEURO: Awake and alert, no focal motor deficits PSYCH: Normal mood and affect Course Vital Signs: Vital signs: Vital Signs Temperature 98.3 F 02/06/21 13:27 Pulse Rate 79 02/06/21 13:27 Respiratory Rate 16 02/06/21 13:27 Blood Pressure 112/73 02/06/21 13:27 Pulse Oximetry 98 02/06/21 13:27 MDM - General Adult MDM Narrative: Medical decision making narrative: Patient is a 20-year-old female G2, P1 presents emergency room with complaints of lower abdominal pain radiating to the umbilicus x1 day. Exam, patient has no focal tenderness palpation no guarding no rebound tenderness. Patient is afebrile in no distress. Workup: CBC, CMP, Lipase, UA, ABORh, OB limited Intervention: Tylenol and reassessment Considered appendicitis however unlikely at this time given lack of signs and sx's to suggest appendicitis as etiology. Pt counseled that appendicitis may later develop and given appendicitis precautions and instructed to return if any development of RLQ tenderness, worsening or continued abdominal pain, or any fevers, chills, nausea, vomiting, or any other concerning signs or symptoms. US confirmed IUP at 13 weeks and 2 days. Disposition: Discharge. Patient counseled regarding diagnostic impression, treatment plan. Patient given ED strict return precautions to return for continuation, worsening, or development of new symptoms. Instructed to f/u w/ Dr Clark regarding symptoms today. Patient verbalized understanding. Lab Data: Labs: Lab Results 02/06/21 02/06/21 02/06/21 14:20 14:20 14:20 WBC 10.8 10^3/uL 10^3 /uL (4.5-13.0) RBC 4.04 10^6/uL L 10 ^6/uL (4.1-5.3) Hgb 12.8 g/dL g/dL (11.5-15.3) Hct 37.4 % % (37.0-47.0) MCV 92.6 fl fl (81-99) MCH 31.7 pg pg (28.0-34.0) MCHC 34.2 g/dL g/dL (30.0-36.0) RDW 12.7 % % (12.1-15.1) Plt Count 267 10^3/cmm 10^3 /cmm (130-400) MPV 9.2 fL fL (7.4-10.4) Neut % (Auto) 73.7 % % Lymph % (Auto) 16.7 % % [place] % (Auto) 7.1 % % Eos % (Auto) 1.7 % % Baso % (Auto) 0.3 % % Neut # (Auto) 7.95 10^3/uL 10^3 /uL (1.8-8.0) Lymph # (Auto) 1.8 10^3/uL 10^3/ uL (1.5-6.5) [place] # (Auto) 0.8 10^3/uL 10^3/ uL (0.2-0.9) Eos # (Auto) 0.2 10^3/uL 10^3/ uL (0.0-0.8) Baso # (Auto) 0.0 10^3/uL 10^3/ uL (0.0-0.1) Nucleated RBC % (a uto) 0 % % Nucleated RBCs # 0.0 /100WBC /100W BC Sodium 136 mmol/L mmol/L (136-145) Potassium 4.0 mmol/L mmol/L (3.5-5.1) Chloride 104 mmol/L mmol/L (98-107) Carbon Dioxide 19 mmol/L L mmol/ L (22-29) Anion Gap 17.0 (5-19) BUN 6 mg/dL mg/dL (6-20) Creatinine 0.4 mg/dL L mg/dL (0.5-0.9) GFR Calculation 203.5 mL/min H mL /min (90-130) Glucose 79 mg/dL mg/dL (65-115) Calculated Osmolal ity 279 mOsm/kg L mOs m/kg (285-295) Calcium 8.5 mg/dL mg/dL (8.5-10.5) Total Bilirubin 0.2 mg/dL mg/dL (0.15-1.2) AST 16 U/L U/L (0-32) ALT 10 U/L U/L (0-33) Alkaline Phosphata se 63 IU/L IU/L (35-105) Total Protein 6.4 g/dL L g/dL (6.6-8.7) Albumin 4.0 g/dL g/dL (3.5-5.2) Globulin 2.4 g/dL g/dL (1.3-4.6) Lipase 25 U/L U/L (13-60) Ser , Destinee i-Qnt 87486.00 mIU/mL m IU/mL Urine Color Urine Appearance Urine pH Ur Specific Gravit y Urine Protein Urine Glucose (UA) Urine Ketones Urine Blood Urine Nitrate Urine Bilirubin Urine Urobilinogen Ur Leukocyte Chiara ase Blood Type O Positive Rho(D) Type Positive 02/06/21 14:45 WBC RBC Hgb Hct MCV MCH MCHC RDW Plt Count MPV Neut % (Auto) Lymph % (Auto) [place] % (Auto) Eos % (Auto) Baso % (Auto) Neut # (Auto) Lymph # (Auto) [place] # (Auto) Eos # (Auto) Baso # (Auto) Nucleated RBC % (a uto) Nucleated RBCs # Sodium Potassium Chloride Carbon Dioxide Anion Gap BUN Creatinine GFR Calculation Glucose Calculated Osmolal ity Calcium Total Bilirubin AST ALT Alkaline Phosphata se Total Protein Albumin Globulin Lipase Ser , Destinee i-Qnt Urine Color Yellow (Yellow) Urine Appearance Clear (CLEAR) Urine pH 7 (5-7) Ur Specific Gravit y 1.010 (1.005-1.030) Urine Protein Neg (Negative) Urine Glucose (UA) Norm (Normal) Urine Ketones Negative (Negative) Urine Blood Neg (Negative) Urine Nitrate Negative (Negative) Urine Bilirubin Neg (Negative) Urine Urobilinogen Norm mg/dL mg/dL (Negative) Ur Leukocyte Chiara ase Negative (Negative) Blood Type Rho(D) Type Imaging Data^: Other Imaging: Radiologist's impression: [address] [id number] ReportSigned Patient: Salazar Marshall #: [id number]: 2000Acct#:[id number]/Sex: 20 / FADM Date: 02/06/21Loc: ERRoom/Bed:Attending Dr: Ordering Provider/Ordering MD: Rikki Michel MD Date of Service: 02/06/21 Procedure(s): US appendix [id number] Accession Number(s): [id number] Report Number: [id number] PROCEDURE INFORMATION: Exam: US Abdomen, Limited; Appendix Exam date and time: 02/06/2021 1:46 PM Age: 20 years old Clinical indication: Abdominal pain; Other: Lower abdomen/ pelvis; ; Additional info: Eval ppendcitis TECHNIQUE: Imaging protocol: US abdomen. Real time ultrasound with image documentation. Limited exam focused on the appendix. COMPARISON: US OB limited [id number] 01/20/2021 3:40 AM FINDINGS: Appendix: The appendix is not visible. No evidence of acute appendicitis or right lower quadrant inflammatory process. US/US appendix [id number] IMPRESSION: 1. The appendix is not visible. 2. Negative for right lower quadrant inflammatory changes Radiation Dose CTDIVOL = (mGy): DLP = (mGy-cm) Dictated By:Randee Serrano By:Randee Serrano Date/Time:02/06/21 1544DD/ [address] [id number] ReportSigned Patient: Salazar Marshall #: [id number]: 2000Acct#:[id number]/Sex: 20 / FADM Date: 02/06/21Loc: ERRoom/Bed:Attending Dr: Ordering Provider/Ordering MD: Rikki Michel MD Date of Service: 02/06/21 Procedure(s): US OB limited [id number] Accession Number(s): [id number] Report Number: [id number] PROCEDURE INFORMATION: Exam: US , Limited Exam date and time: 02/06/2021 1:45 PM Age: 20 years old Clinical indication: complicated by abdominal or pelvic pain; Other: Lower abdomen and pelvis; Gestational age or lmp: 12 weeks 5 days (per patient); ; Additional info: Confirm iup TECHNIQUE: Imaging protocol: Real-time ultrasound of the maternal uterus with image documentation. Exam focused on the clinical indication. COMPARISON: US OB limited [id number] 01/20/2021 3:40 AM FINDINGS: Gestation: There is an intrauterine gestational sac with a fetus and yolk sac. New lines the fetus is in breech presentation. The heart rate is 167 BPM. Amniotic fluid is normal in volume. The placenta has not formed. BIOMETRY: Gestational age (AUA): Ultrasound gestational age 13 weeks 2 days NIKO 08/12/2021 [place]-Rump length: 7 cm 13 weeks 1 day NIKO 08/13/2021. MATERNAL: Uterus: The uterus measures 12.8 cm x 8 cm x 9 cm. There is normal myometrium. Cervix: The cervix measures 3.2 cm in length the cervical os is closed. Right ovary/adnexa: The right ovary measures 2.4 cm x 1 cm x 1.8 cm. Normal vascular flow. Left ovary/adnexa: The left ovary measures 3.2 cm x 2.5 cm x 3.1 cm. There is normal vascular flow . Urinary bladder: The urinary bladder is unremarkable. US/ OB limited [id number] IMPRESSION: 1. There is a intrauterine gestational sac with a living fetus. 2. Gestational age 13 weeks 2 day NIKO 08/12/2021. 3. Normal uterine myometrium. 4. Normal bilateral ovaries 5. Unremarkable urinary bladder Radiation Dose CTDIVOL = (mGy): DLP = (mGy-cm) Dictated By:Randee Serrano By:Randee Serrano Date/Time:02/06/21 1555DD/ 1345 Discharge Plan Discharge Patient Disposition: Home Clinical Impression: Abdominal pain Condition: Stable Prescriptions: No Action cranberry 400 mg capsule See Rx Instructions PO DAILY RF: 0 prenat.vits,charles,yof-vmud-nipwj Tablet 1 tab PO DAILY RF: 0 latanoprost 0.005 % drops 1 drp ophthalmic (eye) BEDTIME RF: 0 ascorbic acid (vitamin C) [Vitamin C] 1,000 mg Tablet 1,000 mg PO DAILY RF: 0 Discharge Orders: Discharge ED (Routine); Ordered 02/06/21 Ordered By: Rikki Michel Referrals: Leelee Levy, GUT CARRIER [Primary Care Provider] - Discharge Diet: Advance as tolerated Discharge Activity: Resume usual activity Patient Instructions: Abdominal Pain (ED) Activity Restrictions/Additional Instructions: Come back to the ER if you have any new regular contractions, vaginal bleeding, discharge, abdominal pain, nausea/vomiting for any other complaints. 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
[2021-02-06 14:30] LABS: Basophils % 0.3 %; Eosinophils # 0.2 10^3/uL (0.0-0.8); Eosinophils % 1.7 %; Hematocrit 37.4 % (37.0-47.0); Hemoglobin 12.8 g/dL (11.5-15.3); Lymphocytes # 1.8 10^3/uL (1.5-6.5); Lymphocytes % 16.7 %; Mean Corpuscular HGB Conc 34.2 g/dL (30.0-36.0); Mean Corpuscular Hemoglobin 31.7 pg (28.0-34.0); Mean Corpuscular Volume 92.6 fl (81-99); Mean Platelet Volume 9.2 fL (7.4-10.4); Monocytes # 0.8 10^3/uL (0.2-0.9); Monocytes % 7.1 %; Neutrophils # 7.95 10^3/uL (1.8-8.0); Neutrophils % 73.7 %; Nucleated Red Blood Cells % 0 %; Platelet Count 267 10^3/cmm (130-400); Red Blood Count 4.04 10^6/uL (4.1-5.3); Red Cell Distribution Width 12.7 % (12.1-15.1); White Blood Count 10.8 10^3/uL (4.5-13.0)
[2021-02-06 15:02] LABS: Alanine Aminotransferase 10 U/L (0-33); Alkaline Phosphatase 63 IU/L (35-105); Aspartate Amino Transferase 16 U/L (0-32); Blood Urea Nitrogen 6 mg/dL (6-20); Calcium 8.5 mg/dL (8.5-10.5); Carbon Dioxide 19 mmol/L (22-29); Chloride 104 mmol/L (98-107); Globulin 2.4 g/dL (1.3-4.6); Glomerular Filtration Rate 203.5 mL/min (90-130); Glucose 79 mg/dL (65-115); Lipase 25 U/L (13-60); Osmolality Calculated 279 mOsm/kg (285-295); Sodium 136 mmol/L (136-145); Total Bilirubin 0.2 mg/dL (0.15-1.2); Total Protein 6.4 g/dL (6.6-8.7)
[2021-02-06 15:12] LABS: Add Urine Microscopic? NO; Charge for UA Resulting for Rev
[2021-02-06 15:34] LABS: Bilirubin Urine Neg (Negative); Blood Urine Neg (Negative); Glucose Urine UA Norm (Normal); Ketones Urine Negative (Negative); Leukocyte Esterase Urine Negative (Negative); Nitrate Urine Negative (Negative); Protein Urine Neg (Negative); Urine Appearance Clear (CLEAR); Urine Color Yellow (Yellow); Urobilinogen Urine Norm (Negative); pH Urine 7 (5-7)
[2021-02-06 16:41] VITALS: PULSE 63; RESP 16; O2SAT 94
== END 2021-02-06 16:43 | disposition home or self-care (01) ==
PROVIDERS: Emergency Provider Emergency Medicine; PCP Nurse Practitioner Family
DX: O26.891 Other specified pregnancy related conditions, first trimester (principal); R10.9 Unspecified abdominal pain; Z3A.12 12 weeks gestation of pregnancy
CPT/HCPCS: 76705; 76815; 80053; 81003; 83690; 84702; 85025; 86900; 99283

== ENCOUNTER 2021-03-04 11:35 | Emergency (ER) | payer OTHER, MEDICAID, SELFPAY ==
--- NOTE | 2021-03-04 11:47 | US_ITS ---
WS: [id number] ULTRASOUND EARLY TECHNIQUE: Transabdominal sonography of the pelvis was performed. CLINICAL INFORMATION: eval LMP: 11/09/2020 Beta hCG: Unknown. COMPARISON: February 06, 2021 FINDINGS: Cervix measures 5.6 cm. UTERUS AND GESTATIONAL SAC Intrauterine gestations: Single interuterine gestation. Breech presentation with posterior placenta. Placenta grade 0. Low-lyi ng placenta with marginal previa adjacent to the internal cervical os. Estimated gestational age: 17w3d heart motion: 153 BPM. Subchorionic hemorrhage: None. OVARIES Right ovary: Normal. Left ovary: Normal. FREE FLUID None. US/US OB limited [id number] IMPRESSION: 1. Single live intrauterine . 2. Cervix appears long and closed. 3. Placenta is posterior and low-lying with marginal previa adjacent to the in ternal cervical os. Recommend third trimester follow-up. 4. Breech presentation. 5. Estimated gestational age; 17w3d with estimated delivery August 09, 2021
[2021-03-04 11:48] VITALS: BP 117/74; PULSE 88; RESP 12; TEMP 37.1; O2SAT 100; BMI 29.2
--- NOTE | 2021-03-04 12:08 | ED_ITS ---
HPI - General Adult General: Chief complaint: OB/Uterine Contractions Stated complaint: 17 WKS PREG/BLEEDING Time Seen by Provider: 03/04/21 11:54 History of Present Illness: HPI narrative: Patient is a 20-year-old female with 1 prior miscarriage presenting to the emergency room with vaginal spotting since 10 AM this morning. Patient says that she is followed by Dr. Hinton for her current . Patient is 70 is by LMP. Patient is any regular or strong contractions. Patient denies any fever/chills, cough, runny nose, sore throat, abdominal pain, urinary symptoms. Onset: 2 hr ago Duration: ongoing Location:home Severity:mild Review of Systems Narrative: Constitutional: No fever, no chills. HEENT: No vision changes CV: No chest pain, no palpitations PULM: no cough, no dyspnea. GI: No abdominal pain, no N/V/D. : No dysuria, +vaginal spotting MSKEL: No muscle pain SKIN: No new rashes, no lesions. NEURO: No headache, no focal weakness. HEME: No visible bruises PSYCH: Normal mood PFSH ED PFSH: Medical History Functional neurological symptom disorder with attacks or seizures PTSD pseudoseizures--evaluated by [facility]. Manages with communicative behavior. History of reactive attachment disorder Major depressive disorder, recurrent, moderate Mitral valve prolapse Surgical History H/O eye surgery lazy eye correction Family History Other Adopted Female Reproductive History: Date of last menstrual period: 11/03/20 Physical Exam Narrative: EXAM NARRATIVE: Head: Atraumatic Eyes: PERRL, conjunctiva without injection ENT: Mucous membrane moist NECK: Supple, ROM intact LUNGS: LCTAB, no crackles/rhonchi CV: RRR ABDOMEN: Soft, nontender in all quadrants EXTREMITY: Normal ROM SKIN: No rash or erythema NEURO: Awake and alert, no focal motor deficits PSYCH: Normal mood and affect : 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 Exam limited due to findings of marginal placenta previa on US and decision was made minimal insertion of the speculum. Os not visualized. Vaginal vault did not show any bleeding. +mild thick vaginal discharge Course Vital Signs: Vital signs: Vital Signs Temperature 98.7 F 03/04/21 11:48 Pulse Rate 88 03/04/21 11:48 Respiratory Rate 12 03/04/21 11:48 Blood Pressure 117/74 03/04/21 11:48 Pulse Oximetry 100 03/04/21 11:48 MDM - General Adult MDM Narrative: Medical decision making narrative: G2, P1 at 17 weeks and 2 days on ultrasound evaluation today presents the emergency room with vaginal spotting. Patient appears to be hemodynamically stable H&H appears to be within normal limit. Ultrasound showed low-lying placenta with possible marginal placenta previa. Given finding of marginal previa, decision was made to carefully perform a speculum exam. No active bleeding visualized in the vaginal vault. Patient has not had any significant pain or bleeding post pelvic exam. Patient is Rh+ today. Case was discussed with Dr. Bah with plans for close follow-up with OB next week. Patient aware of lidia swab will not result until next 24 hrs. I have given patient follow up with our director of casework department to be seen by our outpatient OB provider for vaginal bleeding and spotting. Patient aware of a call from our director of casework department to schedule for appointment(s) and verbalizes understanding of the importance of following up. Disposition: Discharge. Patient counseled regarding diagnostic impression, treatment plan. Patient given ED strict return precautions to return for continuation, worsening, or development of new symptoms. Instructed to f/u w/ OB regarding symptoms today. Patient verbalized understanding. Patient is given strict return precaution for any worsening bleeding or any new or concerning complaints Lab Data: Labs: Lab Results 03/04/21 03/04/21 03/04/21 13:20 13:40 13:40 WBC 11.5 10^3/uL 10^3 /uL (4.5-13.0) RBC 3.59 10^6/uL L 10 ^6/uL (4.1-5.3) Hgb 11.4 g/dL L g/dL (11.5-15.3) Hct 32.6 % L % (37.0-47.0) MCV 90.8 fl fl (81-99) MCH 31.8 pg pg (28.0-34.0) MCHC 35.0 g/dL g/dL (30.0-36.0) RDW 12.9 % % (12.1-15.1) Plt Count 256 10^3/cmm 10^3 /cmm (130-400) MPV 9.4 fL fL (7.4-10.4) Neut % (Auto) 79.0 % % Lymph % (Auto) 12.9 % % [place] % (Auto) 6.2 % % Eos % (Auto) 1.2 % % Baso % (Auto) 0.3 % % Neut # (Auto) 9.05 10^3/uL H 10 ^3/uL (1.8-8.0) Lymph # (Auto) 1.5 10^3/uL 10^3/ uL (1.5-6.5) [place] # (Auto) 0.7 10^3/uL 10^3/ uL (0.2-0.9) Eos # (Auto) 0.1 10^3/uL 10^3/ uL (0.0-0.8) Baso # (Auto) 0.0 10^3/uL 10^3/ uL (0.0-0.1) Nucleated RBC % (a uto) 0 % % Nucleated RBCs # 0.0 /100WBC /100W BC Sodium 138 mmol/L mmol/L (136-145) Potassium 3.6 mmol/L mmol/L (3.5-5.1) Chloride 105 mmol/L mmol/L (98-107) Carbon Dioxide 22 mmol/L mmol/L (22-29) Anion Gap 14.6 (5-19) BUN 7 mg/dL mg/dL (6-20) Creatinine 0.5 mg/dL mg/dL (0.5-0.9) GFR Calculation 157.3 mL/min H mL /min (90-130) Glucose 88 mg/dL mg/dL (65-115) Calculated Osmolal ity 283 mOsm/kg L mOs m/kg (285-295) Calcium 8.1 mg/dL L mg/dL (8.5-10.5) Total Bilirubin 0.2 mg/dL mg/dL (0.15-1.2) AST 15 U/L U/L (0-32) ALT 12 U/L U/L (0-33) Alkaline Phosphata se 66 IU/L IU/L (35-105) Total Protein 6.4 g/dL L g/dL (6.6-8.7) Albumin 3.8 g/dL g/dL (3.5-5.2) Globulin 2.6 g/dL g/dL (1.3-4.6) Ser , Destinee i-Qnt Urine Color Straw (Yellow) Urine Appearance Hazy A (CLEAR) Urine pH 7 (5-7) Ur Specific Gravit y 1.005 (1.005-1.030) Urine Protein Neg (Negative) Urine Glucose (UA) Norm (Normal) Urine Ketones Negative (Negative) Urine Blood Neg (Negative) Urine Nitrate Negative (Negative) Urine Bilirubin Neg (Negative) Urine Urobilinogen Norm mg/dL mg/dL (Negative) Ur Leukocyte Chiara ase Negative (Negative) Urine RBC None /hpf /hpf (0-2) Urine WBC None /hpf /hpf (0-5) Ur Squamous Epith Cells 0-4 /hpf H /hpf (0-5) Amorphous Sediment Not Reportable Urine Bacteria Trace /hpf /hpf (NONE) Blood Type Rho(D) Type 03/04/21 03/04/21 13:40 13:40 WBC RBC Hgb Hct MCV MCH MCHC RDW Plt Count MPV Neut % (Auto) Lymph % (Auto) [place] % (Auto) Eos % (Auto) Baso % (Auto) Neut # (Auto) Lymph # (Auto) [place] # (Auto) Eos # (Auto) Baso # (Auto) Nucleated RBC % (a uto) Nucleated RBCs # Sodium Potassium Chloride Carbon Dioxide Anion Gap BUN Creatinine GFR Calculation Glucose Calculated Osmolal ity Calcium Total Bilirubin AST ALT Alkaline Phosphata se Total Protein Albumin Globulin Ser , [place]inee i-Qnt 21497.00 mIU/mL m IU/mL Urine Color Urine Appearance Urine pH Ur Specific Gravit y Urine Protein Urine Glucose (UA) Urine Ketones Urine Blood Urine Nitrate Urine Bilirubin Urine Urobilinogen Ur Leukocyte Chiara ase Urine RBC Urine WBC Ur Squamous Epith Cells Amorphous Sediment Urine Bacteria Blood Type O Positive Rho(D) Type Positive Imaging Data^: Other Imaging: Radiologist's impression: [address] [id number] ReportSigned Patient: Dino MarshallXander #: [id number]: 2000#:[id number]/Sex: 20 / FADM Date: 03/04/21Loc: ERRoom/Bed: Attending Dr: Ordering Provider/Ordering MD: Rikki Michel MD Date of Service: 03/04/21 Procedure(s): OB limited [id number] Accession Number(s): [id number] Report Number: [id number] WS: [id number] ULTRASOUND EARLY TECHNIQUE: Transabdominal sonography of the pelvis was performed. CLINICAL INFORMATION: eval LMP: 11/09/2020 Beta hCG: Unknown. COMPARISON: February 06, 2021 FINDINGS: Cervix measures 5.6 cm. UTERUS AND GESTATIONAL SAC Intrauterine gestations: Single interuterine gestation. Breech presentation with posterior placenta. Placenta grade 0. Low-lying placenta with marginal previa adjacent to the internal cervical os. Estimated gestational age: 17w3d heart motion: 153 BPM. Subchorionic hemorrhage: None. OVARIES Right ovary: Normal. Left ovary: Normal. FREE FLUID None. US/US OB limited [id number] IMPRESSION: 1. Single live intrauterine . 2. Cervix appears long and closed. 3. Placenta is posterior and low-lying with marginal previa adjacent to the internal cervical os. Recommend third trimester follow-up. 4. Breech presentation. 5. Estimated gestational age; 17w3d with estimated delivery August 09, 2021 Dictated By:Blair Arellano MDSigned By:Blair Arellano MDSigned Date/Time:03/04/21 1311DD/ 1304 Discharge Plan Discharge Patient Disposition: Home Clinical Impression: Threatened miscarriage, Vaginal bleeding Condition: Stable Prescriptions: No Action cranberry 400 mg capsule See Rx Instructions PO DAILY RF: 0 prenat.vits,charles,[id number] Tablet 1 tab PO DAILY RF: 0 latanoprost 0.005 % drops 1 drp ophthalmic (eye) BEDTIME RF: 0 ascorbic acid (vitamin C) [Vitamin C] 1,000 mg Tablet 1,000 mg PO DAILY RF: 0 Discharge Orders: Discharge ED (Routine); Ordered 03/04/21 Ordered By: Rikki Michel Referrals: Leelee Levy, FLOOR SUPERVISOR [Primary Care Provider] - Discharge Diet: Advance as tolerated Discharge Activity: Resume usual activity Patient Instructions: (ED) Activity Restrictions/Additional Instructions: Our director of casework department will have you follow-up with Dr. Clark in the next few days for evaluation of vaginal bleeding. You would be expected to have a phone call with our director of casework department who will put you on the schedule. Come back to the emergency room you have any significant bleeding, passage of clots, lightheadedness, cramps, or any new or concerning complaints. Coding Level of Care Code ED Ticket Speculator for Pradeep Yañez
[2021-03-04 13:42] LABS: Add Urine Microscopic? YES; Bilirubin Urine Neg (Negative); Blood Urine Neg (Negative); Glucose Urine UA Norm (Normal); Ketones Urine Negative (Negative); Leukocyte Esterase Urine Negative (Negative); Nitrate Urine Negative (Negative); Protein Urine Neg (Negative); Specific Gravity, Urine 1.005 (1.005-1.030); Urine Appearance Hazy (CLEAR); Urine Color Straw (Yellow); Urobilinogen Urine Norm (Negative); pH Urine 7 (5-7)
[2021-03-04 13:48] LABS: Basophils % 0.3 %; Eosinophils # 0.1 10^3/uL (0.0-0.8); Eosinophils % 1.2 %; Hematocrit 32.6 % (37.0-47.0); Hemoglobin 11.4 g/dL (11.5-15.3); Lymphocytes # 1.5 10^3/uL (1.5-6.5); Lymphocytes % 12.9 %; Mean Corpuscular Hemoglobin 31.8 pg (28.0-34.0); Mean Corpuscular Volume 90.8 fl (81-99); Mean Platelet Volume 9.4 fL (7.4-10.4); Monocytes # 0.7 10^3/uL (0.2-0.9); Monocytes % 6.2 %; Neutrophils # 9.05 10^3/uL (1.8-8.0); Nucleated Red Blood Cells % 0 %; Platelet Count 256 10^3/cmm (130-400); Red Blood Count 3.59 10^6/uL (4.1-5.3); Red Cell Distribution Width 12.9 % (12.1-15.1); White Blood Count 11.5 10^3/uL (4.5-13.0)
[2021-03-04 13:54] LABS: Add Urine Culture? No; Bacteria Urine TRACE /hpf; Squamous Epithelial Cell Urine 0-4 /hpf (0-5)
[2021-03-04 14:11] LABS: Alanine Aminotransferase 12 U/L (0-33); Albumin Level 3.8 g/dL (3.5-5.2); Alkaline Phosphatase 66 IU/L (35-105); Anion Gap 14.6 (5-19); Aspartate Amino Transferase 15 U/L (0-32); Blood Urea Nitrogen 7 mg/dL (6-20); Calcium 8.1 mg/dL (8.5-10.5); Carbon Dioxide 22 mmol/L (22-29); Chloride 105 mmol/L (98-107); Creatinine Clr Calc Pharmacy 154.4609; Globulin 2.6 g/dL (1.3-4.6); Glomerular Filtration Rate 157.3 mL/min (90-130); Glucose 88 mg/dL (65-115); Osmolality Calculated 283 mOsm/kg (285-295); Potassium 3.6 mmol/L (3.5-5.1); Sodium 138 mmol/L (136-145); Total Bilirubin 0.2 mg/dL (0.15-1.2); Total Protein 6.4 g/dL (6.6-8.7)
[2021-03-04 15:07] VITALS: BP 168/68; PULSE 81; RESP 16; O2SAT 99
--- NOTE | 2021-03-07 16:09 | DCPLANNER ---
ux manager had message to schedule a follow up appointment for patient with [facility]. ux manager called [facility], spoke with Alex, gave clinic patients information. ux manager was told that patients information would be printed and reviewed. Clinic will call patient with appointment information.
--- NOTE | 2021-03-18 06:12 | DCPLANNER ---
Patient had a follow up appointment on 03.10.[address] Hinton at [facility] - patient did attend appointment.
== END 2021-03-04 15:08 | disposition home or self-care (01) ==
PROVIDERS: Physician Assistant; Emergency Provider Emergency Medicine; PCP Nurse Practitioner Family
DX: O20.0 Threatened abortion (principal); Z3A.17 17 weeks gestation of pregnancy
CPT/HCPCS: 76805; 76815; 76817; 80053; 81001; 84702; 85025; 86900; 87081; 87205; 87210; 99283

== ENCOUNTER → 2021-03-10 10:28 | Outpatient (BNVA) | payer OTHER, SELFPAY | PROVIDERS: PCP Nurse Practitioner Family; Visit Provider Obstetrics & Gynecology | DX: Z34.80 Encounter for supervision of other normal pregnancy, unspecified trimester (principal) | CPT/HCPCS: 81000 ==

== ENCOUNTER 2021-03-12 16:20 | Emergency (ER) | payer OTHER, MEDICAID, SELFPAY ==
[2021-03-12 17:43] VITALS: BP 121/78; PULSE 75; RESP 14; TEMP 36.7; O2SAT 99; BMI 29.2
[2021-03-12 20:40] VITALS: BP 115/74; PULSE 79; RESP 18; O2SAT 98
[2021-03-12 20:49] LABS: Basophils % 0.2 %; Eosinophils # 0.2 10^3/uL (0.0-0.8); Eosinophils % 1.5 %; Hematocrit 32.5 % (37.0-47.0); Hemoglobin 11.2 g/dL (11.5-15.3); Lymphocytes # 2.1 10^3/uL (1.5-6.5); Mean Corpuscular HGB Conc 34.5 g/dL (30.0-36.0); Mean Corpuscular Hemoglobin 31.7 pg (28.0-34.0); Mean Corpuscular Volume 92.1 fl (81-99); Mean Platelet Volume 9.5 fL (7.4-10.4); Monocytes # 0.7 10^3/uL (0.2-0.9); Monocytes % 6.4 %; Neutrophils # 7.77 10^3/uL (1.8-8.0); Neutrophils % 72.1 %; Nucleated Red Blood Cells % 0 %; Platelet Count 263 10^3/cmm (130-400); Red Blood Count 3.53 10^6/uL (4.1-5.3); White Blood Count 10.8 10^3/uL (4.5-13.0)
[2021-03-12] MEDS: sodium chloride 0.9% 1,000 ML 999 ML IV (20:58)
[2021-03-12 21:08] LABS: Add Urine Microscopic? NO; Charge for UA Resulting for Rev
[2021-03-12 21:15] LABS: Alanine Aminotransferase 13 U/L (0-33); Albumin Level 3.6 g/dL (3.5-5.2); Alkaline Phosphatase 65 IU/L (35-105); Anion Gap 14.8 (5-19); Aspartate Amino Transferase 17 U/L (0-32); Blood Urea Nitrogen 3 mg/dL (6-20); Calcium 8.2 mg/dL (8.5-10.5); Carbon Dioxide 20 mmol/L (22-29); Chloride 106 mmol/L (98-107); Globulin 2.3 g/dL (1.3-4.6); Glomerular Filtration Rate 203.5 mL/min (90-130); Glucose 79 mg/dL (65-115); Lipase 20 U/L (13-60); Osmolality Calculated 279 mOsm/kg (285-295); Potassium 3.8 mmol/L (3.5-5.1); Sodium 137 mmol/L (136-145); Total Bilirubin 0.2 mg/dL (0.15-1.2); Total Protein 5.9 g/dL (6.6-8.7)
[2021-03-12 21:34] LABS: Urine Appearance Clear (CLEAR); Urine Color Yellow (Yellow)
[2021-03-12 21:35] LABS: Bilirubin Urine Neg (Negative); Blood Urine Neg (Negative); Glucose Urine UA Norm (Normal); Ketones Urine Negative (Negative); Leukocyte Esterase Urine Negative (Negative); Nitrate Urine Negative (Negative); Protein Urine Neg (Negative); Urobilinogen Urine Norm (Negative); pH Urine 6.5 (5-7)
--- NOTE | 2021-03-12 22:02 | ED_ITS ---
HPI - Female Genitourinary General: Chief complaint: Urogenital-Female Stated complaint: PAIN IN ABD Time Seen by Provider: 03/12/21 20:14 History of Present Illness: HPI Narrative: 20-year-old female who is 18 weeks . She presents with a sharp stabbing sensation, mainly on her right side while urinating. No fever. No vomiting. She has been having some back pain on and off. No diarrhea. No vaginal bleeding, although she did have some vaginal bleeding for which she was seen last week. MD elicited complaint: dysuria Pertinent past history: prior miscarriages Onset (ago): hour(s) Location of symptoms: flank Quality of pain: burning and stabbing Vaginal discharge: none Vaginal bleeding: none Exacerbating factors: urination Relieving factors: none Associated symptoms: Reports abdominal pain, headache(s) and nausea; Deny short of breath, fevers/chills, rash, syncope or vaginal discharge Date of Last Menstrual Period: 11/03/20 Review of Systems Const: Denies: fever(s) or chills Card: Denies: syncope Resp: Denies: dyspnea GI: Reports: abdominal pain and nausea : Denies: vaginal discharge Neuro: Reports: headache(s) PFSH ED PFSH: Medical History Functional neurological symptom disorder with attacks or seizures PTSD pseudoseizures--evaluated by [facility]. Manages with communicative behavior. History of reactive attachment disorder Major depressive disorder, recurrent, moderate Mitral valve prolapse Surgical History H/O eye surgery lazy eye correction Family History Other Adopted Female Reproductive History: Date of last menstrual period: 11/03/20 Physical Exam Const: COMMON NORMALS: no acute distress HENMT: COMMON NORMALS: normocephalic HEAD & SCALP: normocephalic Eye: COMMON NORMALS: Equal, round and reactive pupils present and EOMs intact bilaterally PUPIL: Yes Equal, round and reactive pupils present Chest: COMMONS NORMALS: normal inspection of the chest Resp: COMMON NORMALS: normal respiratory effort and No use of accessory muscles Cardio: COMMON NORMALS: regular rate and regular rhythm RATE: regular rate RHYTHM: regular rhythm GI: COMMON NORMALS: Normal to inspection, nondistended, normoactive bowel sounds present Course Vital Signs: Vital signs: Vital Signs Temperature 98.0 F 03/12/21 17:43 Pulse Rate 79 03/12/21 20:40 Respiratory Rate 18 03/12/21 20:40 Blood Pressure 115/74 03/12/21 20:40 Pulse Oximetry 98 03/12/21 20:40 MDM - Female MDM Narrative: Medical decision making narrative: Bedside ultrasound reveals a crown-rump length of 17 weeks 6 days. Heart rate 160. Positive movement and appropriate fluid volume. Urinalysis is completely negative. No hematuria. White count 10.8. Other labs are normal save a bicarb of 20, for which she has had a liter of fluid. She has urinated, and is feeling better. She will be allowed home. Azo for spasm type pain if she needs it close outpatient follow- up. Lab Data: Labs: Lab Results 03/12/21 03/12/21 03/12/21 18:54 20:38 20:38 WBC 10.8 10^3/uL 10^3 /uL (4.5-13.0) RBC 3.53 10^6/uL L 10 ^6/uL (4.1-5.3) Hgb 11.2 g/dL L g/dL (11.5-15.3) Hct 32.5 % L % (37.0-47.0) MCV 92.1 fl fl (81-99) MCH 31.7 pg pg (28.0-34.0) MCHC 34.5 g/dL g/dL (30.0-36.0) RDW 13.0 % % (12.1-15.1) Plt Count 263 10^3/cmm 10^3 /cmm (130-400) MPV 9.5 fL fL (7.4-10.4) Neut % (Auto) 72.1 % % Lymph % (Auto) 19.0 % % [place] % (Auto) 6.4 % % Eos % (Auto) 1.5 % % Baso % (Auto) 0.2 % % Neut # (Auto) 7.77 10^3/uL 10^3 /uL (1.8-8.0) Lymph # (Auto) 2.1 10^3/uL 10^3/ uL (1.5-6.5) [place] # (Auto) 0.7 10^3/uL 10^3/ uL (0.2-0.9) Eos # (Auto) 0.2 10^3/uL 10^3/ uL (0.0-0.8) Baso # (Auto) 0.0 10^3/uL 10^3/ uL (0.0-0.1) Nucleated RBC % (a uto) 0 % % Nucleated RBCs # 0.0 /100WBC /100W BC Sodium 137 mmol/L mmol/L (136-145) Potassium 3.8 mmol/L mmol/L (3.5-5.1) Chloride 106 mmol/L mmol/L (98-107) Carbon Dioxide 20 mmol/L L mmol/ L (22-29) Anion Gap 14.8 (5-19) BUN 3 mg/dL L mg/dL (6-20) Creatinine 0.4 mg/dL L mg/dL (0.5-0.9) GFR Calculation 203.5 mL/min H mL /min (90-130) Glucose 79 mg/dL mg/dL (65-115) Calculated Osmolal ity 279 mOsm/kg L mOs m/kg (285-295) Calcium 8.2 mg/dL L mg/dL (8.5-10.5) Total Bilirubin 0.2 mg/dL mg/dL (0.15-1.2) AST 17 U/L U/L (0-32) ALT 13 U/L U/L (0-33) Alkaline Phosphata se 65 IU/L IU/L (35-105) Total Protein 5.9 g/dL L g/dL (6.6-8.7) Albumin 3.6 g/dL g/dL (3.5-5.2) Globulin 2.3 g/dL g/dL (1.3-4.6) Lipase 20 U/L U/L (13-60) Urine Color Yellow (Yellow) Urine Appearance Clear (CLEAR) Urine pH 6.5 (5-7) Ur Specific Gravit y 1.010 (1.005-1.030) Urine Protein Neg (Negative) Urine Glucose (UA) Norm (Normal) Urine Ketones Negative (Negative) Urine Blood Neg (Negative) Urine Nitrate Negative (Negative) Urine Bilirubin Neg (Negative) Urine Urobilinogen Norm mg/dL mg/dL (Negative) Ur Leukocyte Chiara ase Negative (Negative) Discharge Plan Discharge Patient Disposition: Home Clinical Impression: Dysuria during Qualifiers: Trimester: second trimester Qualified Code(s): O26.892 - Other specified related conditions, second trimester Condition: Stable Prescriptions: New phenazopyridine 100 mg tablet 100 mg PO Q8H PRN (Reason: pain) Qty: 7 RF: 0 No Action cranberry 400 mg capsule See Rx Instructions PO DAILY RF: 0 prenat.vits,charles,rti-qiud-wjzaq Tablet 1 tab PO DAILY RF: 0 latanoprost 0.005 % drops 1 drp ophthalmic (eye) BEDTIME RF: 0 ascorbic acid (vitamin C) [Vitamin C] 1,000 mg Tablet 1,000 mg PO DAILY RF: 0 Discharge Orders: Discharge ED (Routine); Ordered 03/12/21 Ordered By: Raul Padron Referrals: Leelee Levy FNP [Primary Care Provider] - Radha Hinton MD [Physician] - 1-3 days Patient Instructions: Dysuria (ED) Activity Restrictions/Additional Instructions: Return for fever, worsening pain, vaginal bleeding, vaginal discharge, any other concerning symptoms. Call your doctor Sunday morning to let them know you were here, as they may wish to see you. Coding Level of Care Code ED Balancing Machine Operator for Chg Fwd Exam Detailed
[2021-03-12 22:36] VITALS: PULSE 78; RESP 18; O2SAT 98
== END 2021-03-12 22:38 | disposition home or self-care (01) ==
PROVIDERS: Nurse Practitioner Family; Emergency Provider Emergency Medicine; PCP Nurse Practitioner Family
DX: O26.892 Other specified pregnancy related conditions, second trimester (principal); R10.9 Unspecified abdominal pain; R51.9 Headache, unspecified; R11.0 Nausea; Z3A.18 18 weeks gestation of pregnancy; Z87.59 Personal history of other complications of pregnancy, childbirth and the puerperium
CPT/HCPCS: 80053; 81003; 83690; 85025; 96360; 99284; J7030

== ENCOUNTER 2021-04-13 03:51 | Outpatient (CLI) | payer OTHER, MEDICAID, SELFPAY ==
[2021-04-13] VITALS (9 sets, daily range): BP systolic 96–111; BP diastolic 53–67; PULSE 65–94; RESP 16; BMI 32.0
[2021-04-13] MEDS: acetaminophen 500 mg Tablet 1000 MG PO (04:20)
[2021-04-13 04:56] LABS: Add Urine Culture? No; Bacteria Urine TRACE /hpf; Bilirubin Urine Neg (Negative); Blood Urine Neg (Negative); Glucose Urine UA Norm (Normal); Ketones Urine Negative (Negative); Leukocyte Esterase Urine Negative (Negative); Nitrate Urine Negative (Negative); Protein Urine Neg (Negative); RBC Urine 0-4 /hpf (0-2); Specific Gravity, Urine 1.005 (1.005-1.030); Squamous Epithelial Cell Urine 0-4 /hpf (0-5); Urine Appearance Clear (CLEAR); Urine Color Colorless (Yellow); Urobilinogen Urine Norm (Negative); WBC Urine 0-4 /hpf (0-5); pH Urine 7 (5-7)
== END 2021-04-13 05:55 | disposition home or self-care (01) ==
LOC: OPOB 03:51 → OBGYN 03:52
PROVIDERS: PCP Nurse Practitioner Family; Visit Provider Obstetrics & Gynecology
DX: O26.899 Other specified pregnancy related conditions, unspecified trimester (principal); Z3A.00 Weeks of gestation of pregnancy not specified; R10.9 Unspecified abdominal pain
CPT/HCPCS: 81001; 99211

== ENCOUNTER → 2021-05-27 09:05 | Outpatient (BNVA) | payer OTHER, MEDICAID, SELFPAY | PROVIDERS: PCP Nurse Practitioner Family; Visit Provider Obstetrics & Gynecology | DX: Z34.80 Encounter for supervision of other normal pregnancy, unspecified trimester (principal) | CPT/HCPCS: 82950; 85027 ==

== ENCOUNTER → 2021-06-06 11:06 | Outpatient (BNVA) | payer OTHER, MEDICAID, SELFPAY | PROVIDERS: PCP Nurse Practitioner Family; Visit Provider Obstetrics & Gynecology | DX: Z34.80 Encounter for supervision of other normal pregnancy, unspecified trimester (principal) | CPT/HCPCS: 81000 ==

== ENCOUNTER 2021-06-22 09:58 | Outpatient (CLI) | payer OTHER, MEDICAID, SELFPAY ==
[2021-06-22] VITALS (9 sets, daily range): BP systolic 84–117; BP diastolic 49–61; PULSE 83–108; RESP 17; BMI 33.4
[2021-06-22 11:20] LABS: Add Urine Microscopic? NO; Charge for UA Resulting for Rev
[2021-06-22] MEDS: acetaminophen 500 mg Tablet 1000 MG PO (11:28)
[2021-06-22 11:38] LABS: Bilirubin Urine Neg (Negative); Blood Urine Neg (Negative); Glucose Urine UA Norm (Normal); Ketones Urine Negative (Negative); Leukocyte Esterase Urine Negative (Negative); Nitrate Urine Negative (Negative); Protein Urine Neg (Negative); Sulfosalicylic Acid Urine Negative (Negative); Urine Appearance Clear (CLEAR); Urine Color Yellow (Yellow); Urobilinogen Urine Neg (Negative); pH Urine 8 (5-7)
== END 2021-06-22 12:04 | disposition home or self-care (01) ==
LOC: OPOB 09:59 → OBGYN 10:00
PROVIDERS: PCP Nurse Practitioner Family; Visit Provider Obstetrics & Gynecology
DX: O26.899 Other specified pregnancy related conditions, unspecified trimester (principal); Z3A.00 Weeks of gestation of pregnancy not specified; R10.9 Unspecified abdominal pain
CPT/HCPCS: 51702; 59025; 81003; 99211

== ENCOUNTER → 2021-07-05 09:25 | Outpatient (BNVA) | payer OTHER, MEDICAID, SELFPAY | PROVIDERS: PCP Nurse Practitioner Family; Visit Provider Obstetrics & Gynecology | DX: Z34.80 Encounter for supervision of other normal pregnancy, unspecified trimester (principal) | CPT/HCPCS: 81000 ==

== ENCOUNTER 2021-07-09 13:05 | Outpatient (CLI) | payer OTHER, MEDICAID, SELFPAY ==
[2021-07-09] VITALS (45 sets, daily range): BP systolic 98–136; BP diastolic 59–84; PULSE 87–143; RESP 16–31; TEMP 36.3–37.1; O2SAT 89–100; BMI 4780.4
--- NOTE | 2021-07-09 13:09 | ECG_ITS ---
[facility] Test Date: 2021-07-09 Pat Name: Kavita Zamudio Department: Room: OB13 Gender: Female Senior Business Architect: : 2000 Requested By: Nomi Cavazos Order Number: [id number] Gerson MD: Parth Ahumada M.D. Measurements Intervals [place] Rate: 107 P: 148 RI: 144 QRS: 156 QRSD: 73 T: 198 QT: 322 QTc: 431 Interpretive Statements SINUS TACHYCARDIA ARM LEADS REVERSED [INVERTED P AND QRS IN I] ABNORMAL RHYTHM ECG INTERPRETATION BASED ON A DEFAULT AGE OF 40 YEARS No previous ECG available for comparison Electronically Signed On 07-09-2021 21:59:54 CDT by Parth Ahumada M.D. [id number] f
[2021-07-09 13:16] LABS: Basophils % 0.2 %; Eosinophils # 0.1 10^3/uL (0.0-0.8); Eosinophils % 0.7 %; Hematocrit 38.4 % (37.0-47.0); Lymphocytes # 1.7 10^3/uL (1.5-6.5); Lymphocytes % 12.9 %; Mean Corpuscular HGB Conc 33.9 g/dL (30.0-36.0); Mean Corpuscular Hemoglobin 31.6 pg (28.0-34.0); Mean Corpuscular Volume 93.4 fl (81-99); Mean Platelet Volume 9.9 fL (7.4-10.4); Monocytes # 0.9 10^3/uL (0.2-0.9); Monocytes % 6.8 %; Neutrophils % 78.5 %; Nucleated Red Blood Cells % 0 %; Platelet Count 263 10^3/cmm (130-400); Red Blood Count 4.11 10^6/uL (4.1-5.3); Red Cell Distribution Width 13.3 % (12.1-15.1); White Blood Count 13.2 10^3/uL (4.5-13.0)
--- NOTE | 2021-07-09 13:20 | W.ED.PREGNAN ---
HPI - General: Chief complaint: Seizure Stated complaint: SEIZURE Time Seen by Provider: 07/09/21 13:07 Source: patient Mode of arrival: EMS History of Present Illness: 20-year-old female who is G1, P0 at 35 weeks gestation brought in by EMS with a report of a seizure at home. Patient has a history of functional seizure disorder in the past been evaluated by neurology at [facility] in [place]. She usually sees Dr. Haynes. There is no report of any complications or problems during this . She has not had any -induced hypertension. She stated she is due for a scheduled and 2 weeks.No reported vaginal bleeding good movement no cramping or contractions. EMS was called for report of a seizure shortly after arrival they witnessed a - episode where the patient's arms and back became rigid but she did not really have any tonic-clonic movements. There is no loss of bowel or bladder control. Onset (ago): minute(s) Relieving factors: none Exacerbating factors: none Vaginal discharge: none Vaginal bleeding: none Date of Last Menstrual Period: 11/03/20 Patient : Yes Expected Date of Delivery: 08/16/21 OB History - Current : no complications care: followed by OB and previous ultrasound confirms IUP (6-week ultrasound) Associated symptoms: Deny rash, seizures, short of breath, vaginal bleeding, visual changes or weakness Review of Systems General: Reports: ROS unobtainable due to medical condition (History reviewed and obtained from old records.) PFS ED PFSH: Medical History Functional neurological symptom disorder with attacks or seizures PTSD pseudoseizures--evaluated by [facility]. Manages with communicative behavior. History of reactive attachment disorder Major depressive disorder, recurrent, moderate Mitral valve prolapse Surgical History H/O eye surgery lazy eye correction Family History Other Adopted Female Reproductive History: Date of last menstrual period: 11/03/20 Physical Exam Const: COMMON NORMALS: no acute distress GENERAL APPEARANCE: cooperative and comfortable ORIENTATION/CONSCIOUSNESS: Yes awake HENMT: COMMON NORMALS: normocephalic, atraumatic and hearing grossly normal bilaterally HEAD & SCALP: normocephalic and atraumatic Eye: COMMON NORMALS: Equal, round and reactive pupils present and EOMs intact bilaterally PUPIL: Yes Equal, round and reactive pupils present Neck/C-Spine: COMMON NORMALS: full ROM, no lymphadenopathy, supple and no JVD Resp: COMMON NORMALS: normal respiratory effort, No retractions, No use of accessory muscles and clear to auscultation bilaterally AUSCULTATION: clear to auscultation bilaterally Cardio: COMMON NORMALS: no JVD, regular rate, regular rhythm and No murmurs present (Cardio) RATE: regular rate RHYTHM: regular rhythm GI: COMMON NORMALS: Soft to palpation and No hepatosplenomegaly present AUSCULTATION: Yes normoactive bowel sounds PALPATION: Yes Soft to palpation, No Tenderness to palpation present (GI), No Guarding due to palpation present (GI) and Yes No hepatosplenomegaly present OTHER: Gravid uterus consistent with stated gestational age : SPECULUM EXAM - VAGINA: No vaginal bleeding OB/EXTERNAL & SPECULUM: No vaginal bleeding Extremity: COMMON NORMALS: normal to inspection, capillary refill normal, no clubbing, cyanosis or edema, no calf tenderness and no pedal edema Skin: COMMON NORMALS: no rashes or lesions noted GENERAL SKIN EXAM: no rashes or lesions noted Course Vital Signs: Vital signs: Vital Signs Temperature 98.8 F 07/09/21 13:13 Pulse Rate 111 H 07/09/21 13:34 Respiratory Rate 31 H 07/09/21 13:34 Blood Pressure 136/74 07/09/21 13:34 Pulse Oximetry 98 07/09/21 13:34 MDM - OB/Uterine Contractions Medical Decision Making Shortly after patient arrived and I reviewed the chart and evaluated the patient and called Dr. Haynes and initially thought to give her magnesium however when I seen the history of pseudoseizures as well as the medics description of the seizure-like activity decided against this. Work-up ordered for -induced hypertension/preeclampsia. Discussed with Dr. Haynes he would like to have the patient go to OB. At this point I do not think there is anything acutely medical that she would need to stay or be further evaluated emergency room her blood pressure is well controlled. She is somewhat tachycardic I think that is just from the stress of the surrounding events. OB nurses have been kind enough to come to the department and help with monitoring on her arrival and have taken the patient to the OB department. On initial monitoring heart tones in the 140s class I strip. Patient began to show contractions every [address] Haynes ordered terbutaline and asked patient be moved to the OB department. Medical Records I reviewed the patient's medical records. Lab Data I reviewed the patient's lab results. : 07/09/21 12:54 07/09/21 12:54 Laboratory Results WBC 13.2 10^3/uL (4.5-13.0) H 07/09/21 12:54 RBC 4.11 10^6/uL (4.1-5.3) 07/09/21 12:54 Hgb 13.0 g/dL (11.5-15.3) 07/09/21 12:54 Hct 38.4 % (37.0-47.0) 07/09/21 12:54 MCV 93.4 fl (81-99) 07/09/21 12:54 MCH 31.6 pg (28.0-34.0) 07/09/21 12:54 MCHC 33.9 g/dL (30.0-36.0) 07/09/21 12:54 RDW 13.3 % (12.1-15.1) 07/09/21 12:54 Plt Count 263 10^3/cmm (130-400) 07/09/21 12:54 MPV 9.9 fL (7.4-10.4) 07/09/21 12:54 Neut % (Auto) 78.5 % 07/09/21 12:54 Lymph % (Auto) 12.9 % 07/09/21 12:54 [place] % (Auto) 6.8 % 07/09/21 12:54 Eos % (Auto) 0.7 % 07/09/21 12:54 Baso % (Auto) 0.2 % 07/09/21 12:54 Neut # (Auto) 10.40 10^3/uL (1.8-8.0) H 07/09/21 12:54 Lymph # (Auto) 1.7 10^3/uL (1.5-6.5) 07/09/21 12:54 [place] # (Auto) 0.9 10^3/uL (0.2-0.9) 07/09/21 12:54 Eos # (Auto) 0.1 10^3/uL (0.0-0.8) 07/09/21 12:54 Baso # (Auto) 0.0 10^3/uL (0.0-0.1) 07/09/21 12:54 Nucleated RBC % (auto) 0 % 07/09/21 12:54 Nucleated RBCs # 0.0 /100WBC 07/09/21 12:54 Sodium 138 mmol/L (136-145) 07/09/21 12:54 Potassium 3.5 mmol/L (3.5-5.1) 07/09/21 12:54 Chloride 103 mmol/L (98-107) 07/09/21 12:54 Anion Gap 17.5 (5-19) 07/09/21 12:54 Glucose 76 mg/dL (65-115) 07/09/21 12:54 Uric Acid 3.5 mg/dL (2.4-5.7) 07/09/21 12:54 Calcium 9.7 mg/dL (8.5-10.5) 07/09/21 12:54 Magnesium 1.9 mg/dL (1.7-2.3) 07/09/21 12:54 Total Bilirubin 0.3 mg/dL (0.15-1.2) 07/09/21 12:54 AST 23 U/L (0-32) 07/09/21 12:54 ALT 13 U/L (0-33) 07/09/21 12:54 Creatine Kinase 45 U/L (26-192) 07/09/21 12:54 Total Protein 7.1 g/dL (6.6-8.7) 07/09/21 12:54 Albumin 3.7 g/dL (3.5-5.2) 07/09/21 12:54 Globulin 3.4 g/dL (1.3-4.6) 07/09/21 12:54 Discharge Plan Discharge Patient Disposition: Admitted As Inpatient Clinical Impression: Functional neurological symptom disorder with attacks or seizures, labor in third trimester Condition: Stable Prescriptions: No Action cranberry 400 mg capsule 400 mg PO DAILY 0RF Rx Instructions: administer with a meal latanoprost 0.005 % drops, emulsion 1 drp ophthalmic (eye) DAILY 0RF prenat.vits,charles,[id number]-[id number] Tablet 1 tab PO DAILY 0RF Referrals: Leelee Levy FNP [Primary Care Provider] - Patient Instructions: Opioid Safety Coding Level of Care Code ED Manufacturing Technology Professor for Aidang Fwd Exam Comprehensive
--- NOTE | 2021-07-09 13:36 | PC.NURSE ---
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 Upon arrival to room 11 via EMS patient vitals stable, blood pressure 136/74. Patient blood sugar was 98 for ems. Patent placed on heart monitor and toco monitor upon arrival to er. patient able to state her name. OB RNs at bedside, patient vitals stable, patient clothes to be removed per Dr. Dodge. Patient shoes with patient at this time.
[2021-07-09 13:37] LABS: Alanine Aminotransferase 13 U/L (0-33); Albumin Level 3.7 g/dL (3.5-5.2); Alkaline Phosphatase 334 IU/L (35-105); Anion Gap 17.5 (5-19); Aspartate Amino Transferase 23 U/L (0-32); Blood Urea Nitrogen 4 mg/dL (6-20); Calcium 9.7 mg/dL (8.5-10.5); Carbon Dioxide 21 mmol/L (22-29); Chloride 103 mmol/L (98-107); Creatine Phosphokinase 45 U/L (26-192); Globulin 3.4 g/dL (1.3-4.6); Glomerular Filtration Rate 203.5 mL/min (90-130); Glucose 76 mg/dL (65-115); Magnesium 1.9 mg/dL (1.7-2.3); Osmolality Calculated 282 mOsm/kg (285-295); Potassium 3.5 mmol/L (3.5-5.1); Sodium 138 mmol/L (136-145); Total Bilirubin 0.3 mg/dL (0.15-1.2); Total Protein 7.1 g/dL (6.6-8.7); Uric Acid 3.5 mg/dL (2.4-5.7)
[2021-07-09 13:44] LABS: Add Urine Microscopic? NO; Urine Appearance Clear (CLEAR); Urine Color Straw (Yellow); pH Urine 7 (5-7)
[2021-07-09 13:45] LABS: Bilirubin Urine Neg (Negative); Blood Urine Neg (Negative); Glucose Urine UA Norm (Normal); Ketones Urine 1+ (Negative); Leukocyte Esterase Urine Negative (Negative); Nitrate Urine Negative (Negative); Protein Urine Neg (Negative); Specific Gravity, Urine 1.005 (1.005-1.030); Urobilinogen Urine Norm (Negative)
[2021-07-09 13:47] LABS: Charge for UA Resulting for Rev
[2021-07-09 14:51] LABS: Urine Creatinine 39 mg/dL (28-217); Urine Protein Random 5 mg/dL
[2021-07-09 14:57] LABS: UPRO/UCREAT Ratio 0.13 mg/mg CR
[2021-07-09] MEDS: NIFEdipine ER (24 hr) 30 mg Tablet PO ×2 (15:27)
== END 2021-07-09 16:54 | disposition home or self-care (01) ==
LOC: ER 13:46 → OBGYN 16:30 → OPOB 07-11 11:25 → OBGYN 07-11 11:26
PROVIDERS: Emergency Provider Family Medicine; PCP Nurse Practitioner Family; Visit Provider Obstetrics & Gynecology
DX: O60.03 Preterm labor without delivery, third trimester (principal); Z3A.35 35 weeks gestation of pregnancy
CPT/HCPCS: 51702; 80053; 81003; 82550; 82570; 83735; 84156; 84550; 85025; 93005; 99285

== ENCOUNTER 2021-07-11 19:57 | Outpatient (CLI) | payer OTHER, MEDICAID, SELFPAY ==
[2021-07-11 20:14] VITALS: BP 120/70; PULSE 107
[2021-07-11 20:26] VITALS: BMI 33.4
[2021-07-11 20:29] VITALS: BP 107/58; PULSE 97
[2021-07-11 20:44] VITALS: BP 107/59; PULSE 105
[2021-07-11 20:45] VITALS: RESP 16
[2021-07-11 20:59] VITALS: BP 114/69; PULSE 90
[2021-07-11 21:02] LABS: Nitrazine Paper, PH Negative
== END 2021-07-11 21:15 | disposition home or self-care (01) ==
LOC: OPOB 20:10 → OBGYN 20:11
PROVIDERS: PCP Nurse Practitioner Family; Visit Provider Obstetrics & Gynecology
DX: O36.8190 Decreased fetal movements, unspecified trimester, not applicable or unspecified (principal); Z3A.00 Weeks of gestation of pregnancy not specified; R10.9 Unspecified abdominal pain
CPT/HCPCS: 59025; 83986; 99211

== ENCOUNTER → 2021-07-19 09:08 | Outpatient (BNVA) | payer OTHER, MEDICAID, SELFPAY | PROVIDERS: PCP Nurse Practitioner Family; Visit Provider Obstetrics & Gynecology | DX: Z34.80 Encounter for supervision of other normal pregnancy, unspecified trimester (principal) | CPT/HCPCS: 84315; 87081 ==

== ENCOUNTER 2021-08-10 05:41 | Inpatient (IN) | payer OTHER, MEDICAID, SELFPAY ==
--- NOTE | 2021-08-05 15:42 | P.ANESASSM_ITS ---
Pre-Anesthetic Assessment Height/Weight: Height 1.52 m Operation Date: 08/10/21 07:00 Proposed Procedures p Primary Section [id number]/O82(Not Applicable) - Jon Haynes MD Familial anesthetic complications: None Was Beta Sophia taken within 24 hours: N/A Was Clonidine taken within 24 hours: N/A Social No alcohol and No tobacco Exam alert, oriented x 3, clear to auscultation bilaterally and regular rate & rhythm Airway Submandibular: within normal limits Cervical ROM: within normal limits Mallampati: Class III Dentition: full History/ROS No significant complaints Pulmonary None reported CV/HEM Murmur (Hx of MV prolapse ) None reported Hepatic None reported GI None reported Metabolic None reported Musc/skel None reported Neuropsych Depression and Seizure (Pseudoseizures related to past trauma and intense anxiety ) Anesthetic Plan ASA status: 2 Anesthesia: Anesthesia Evaluation and Regional (specify below) (spinal ) Other: We discussed risk and benefits of spinal anesthesia including infection, paralysis/catastrophic nerve injury, back bruising/pain, PDPH, conversion to general in case of spinal failure, intraoperative and PONV, life threatening allergic reaction, post operative ICU admission requiring prolonged intubation, stroke, heart attack. Risk of > 500 ml blood loss (7ml/kg in children): No Medications/Allergies Home Medications Medication Instructions Recorded Confirmed Last Taken Type prenat.vits,charles,jwf-umdw-kjeog 1 tab PO DAILY 12/31/20 08/02/21 07/11/21 History cranberry fruit PO .daily 07/19/21 08/02/21 Unknown History latanoprost 0.005 % eye drops 1 drp OPHTHALMIC (EYE) DAILY 07/19/21 08/02/21 Unknown History Allergies Allergy/AdvReac Type Severity Reaction Status Date / Time No Known Allergies Allergy Verified 08/02/21 14:58 [facility] Anesthesia Medical History Functional neurological symptom disorder with attacks or seizures PTSD pseudoseizures--evaluated by [facility]rology. Manages with communicative behavior. History of reactive attachment disorder Major depressive disorder, recurrent, moderate Mitral valve prolapse Surgical History H/O eye surgery lazy eye correction Family History Other Adopted Female Reproductive History Date of last menstrual period: 11/03/20 Data Anesthesia Cardiac Studies: Holter Monitor 01/07/20
[2021-08-10] VITALS (29 sets, daily range): BP systolic 101–138; BP diastolic 51–85; PULSE 70–99; RESP 16–18; TEMP 36.4–37.1; O2SAT 98–100
[2021-08-10 06:11] LABS: Basophils % 0.3 %; Eosinophils # 0.2 10^3/uL (0.0-0.8); Eosinophils % 1.7 %; Hematocrit 36.7 % (37.0-47.0); Hemoglobin 12.9 g/dL (11.5-15.3); Lymphocytes # 2.1 10^3/uL (1.5-6.5); Lymphocytes % 20.6 %; Mean Corpuscular HGB Conc 35.1 g/dL (30.0-36.0); Mean Corpuscular Hemoglobin 31.7 pg (28.0-34.0); Mean Corpuscular Volume 90.2 fl (81-99); Mean Platelet Volume 10.5 fL (7.4-10.4); Monocytes # 0.7 10^3/uL (0.2-0.9); Monocytes % 6.7 %; Neutrophils # 7.12 10^3/uL (1.8-8.0); Neutrophils % 70.1 %; Nucleated Red Blood Cells % 0 %; Platelet Count 265 10^3/cmm (130-400); Red Blood Count 4.07 10^6/uL (4.1-5.3); Red Cell Distribution Width 13.3 % (12.1-15.1); White Blood Count 10.2 10^3/uL (4.5-13.0)
[2021-08-10] MEDS: lactated ringers 1,000 ML 999 ML IV (06:19)
[2021-08-10] MEDS: metoclopramide 5 mg/mL SDV 2 mL 10 MG IVP (06:20)
[2021-08-10] MEDS: citric acid-sodium citrate 30 mL UDC PO (06:20)
[2021-08-10] MEDS: famotidine 20 mg/2 mL INJ IVP (06:20)
--- NOTE | 2021-08-10 06:31 | W.PM.OPSUD ---
Surgery/Procedure H&P Update DATE OF PROCEDURE: August 10, 2021 DATE H&P PERFORMED: 08/09/21 H&P UPDATE INFORMATION: I have reviewed H&P completed within last 30 days, I have examined patient prior to procedure and No changes to prior documentation PLANNED PROCEDURE: Operation Date: 08/10/21 07:00 Proposed Procedures p Primary Section 67367/O82(Not Applicable) - Jon Haynes MD
--- NOTE | 2021-08-10 07:00 | P.ANESUD_ITS ---
Pre-Anesthetic Update Pre-Anesthetic Assessment: Date of Surgery/Procedure: 08/10/21 Preop Radha gnosis: IUP Proposed Procedure: Operation Date: 08/10/21 07:00 Proposed Procedures p Primary Section 88806/O82(Not Applicable) - Jon Haynes MD Any changes to Pre-Anesthetic Assessment?: No Last Intake: Intake Last Liquid Date 08/09/21 Last Liquid Time 23:30 Last Solid Date 08/09/21 Last Solid Time 20:00 Last Intake: 23:30 Labs Last 48hrs: Short CBC 08/10/21 Range/Units 05:55 WBC 10.2 (4.5-13.0) 10^3/ uL Hgb 12.9 (11.5-15.3) g/dL Hct 36.7 L (37.0-47.0) % MCV 90.2 (81-99) fl Plt Count 265 (130-400) 10^3/c mm Neut % (Auto) 70.1 % Neut # (Auto) 7.12 (1.8-8.0) 10^3/u L Vitals: Pulse Rate 83 08/10/21 05:48 Pulse Rhythm 08/10/21 06:02 Pulse Strength 3+ Normal 08/10/21 06:02 Respiratory Effort Non-Labored 08/10/21 06:02 Respiratory Depth Normal 08/10/21 06:02 Respiratory Patter n 08/10/21 06:02 Blood Pressure 113/76 08/10/21 05:48 Oxygen Delivery Me thod 08/10/21 06:02 Exam: Pre-Anes Outpt Exam: alert and oriented x 3 Cardiac Studies: Holter Monitor 01/07/20
--- NOTE | 2021-08-10 08:32 | PM.OP ---
Operative Report Date of procedure: August 10, 2021 Pre-op diagnosis: Preop Diagnosis IUP Post-op findings: Male , Apgars 8/9, Procedure done: Primary low transverse delivery Surgeon: Jon Haynes MD Estimated blood loss (mL): 550 IV fluids (mL): 2,000 Urine output (mL): 600 Complications: None Findings: Gravid uterus Brief History: Mrs. Dsouza 20-year-old female G1, P0 with an estimated gestational age at 39 weeks uncomplicated care requested elective primary delivery. Procedure: After assuring informed consent, the patient was taken to the operating room and anesthesia was initiated. She was placed in the dorsal supine position with a left lateral tilt. The abdomen was prepped and draped in the usual sterile manner. A time-out procedure was performed. A Pfannenstiel skin incision was made with the scalpel and carried through to the underlying layer of fascia with the Bovie. The fascia was nicked in the midline and the incision extended laterally with the De La Fuente scissors. The superior aspect of the fascial incision was then grasped with Jacob clamps and elevated and the underlying rectus muscle dissected off bluntly and sharp with de la fuente scissors. Attention was then turned to the inferior aspect of the incision which, in similar fashion, was grasped and tented up with Jacob clamps and the rectus muscle dissected bluntly. The rectus muscles were then in the midline and the peritoneum identified, tented up and entered sharply with Metzenbaum scissors. The peritoneal incision was then extended superiorly and inferiorly with good visualization of the bladder. The Cosme O retractor was then inserted and the vesicouterine peritoneum identified, grasped with pickups and entered sharply with Metzenbaum scissors. This incision was then extended laterally and the bladder flap created digitally. The uterus incised in a low transverse fashion with the scalpel. The uterine incision was then extended with the bandage scissors. The infant was then delivered in the cephalic presentation atraumatically at 0756 hours. The nose and the mouth were suctioned with bulb and the cord clamped and cut. The cord was normal and had three vessels. Amniotic fluid was clear. The placenta was then removed manually and the uterus exteriorized and cleared of all clots and debris. The uterine incision was repaired with 0 Vicryl in a running-locked fashion. A second layer of the same suture was used to obtain excellent hemostasis. The gutters were cleared of all clots. Excellent hemostasis was noted. The uterus was then returned to the abdomen. The rectus muscles were approximated with 3-0 chromic gut. Exparel was infiltrated for pain management at the incision site. The fascia was reapproximated with 0 Vicryl in an interrupted running fashion. The skin was closed with Insorb?s subcuticular absorbable jame. The patient tolerated the procedure well. The sponge, lap and needle counts were correct times three.
[2021-08-10] MEDS: lactated ringers 1,000 ML 125 ML IV (09:30)
[2021-08-10] MEDS: oxytocin 30 UNIT/500 ML BAG 600 UNIT IV (10:54)
[2021-08-10] MEDS: ketorolac 30 mg/mL INJ IVP ×2 (14:48→21:33)
--- NOTE | 2021-08-10 15:49 | PC.NURSE ---
Pt up to side of bed, gown changed, pad and underwear changed. Pt ambulated to chair with minimal assistance. Clear liquids provided. Pt denies feeling dizzy/light headed or nausea. Pt encouraged to sit up as long as she wants, and if she feels up to walking in hallway to let RN know.
[2021-08-10 22:10] LABS: Hematocrit 30.8 % (37.0-47.0); Hemoglobin 10.6 g/dL (11.5-15.3); Mean Corpuscular HGB Conc 34.4 g/dL (30.0-36.0); Mean Corpuscular Hemoglobin 31.5 pg (28.0-34.0); Mean Corpuscular Volume 91.4 fl (81-99); Platelet Count 201 10^3/cmm (130-400); Red Blood Count 3.37 10^6/uL (4.1-5.3); Red Cell Distribution Width 13.4 % (12.1-15.1); White Blood Count 12.9 10^3/uL (4.5-13.0)
[2021-08-11 03:15] VITALS: BP 105/79; PULSE 80; RESP 16
[2021-08-11] MEDS: HYDROcodone-acetaminophen 5-325 mg Tablet PO ×2 (06:34→12:43)
[2021-08-11] MEDS: ibuprofen 800 mg tablet PO ×3 (09:26→21:17)
[2021-08-11] MEDS: docusate sodium 100 mg Capsule PO (09:26)
[2021-08-11] MEDS: prenatal vitamin Capsule 1 CAP PO (09:26)
[2021-08-11 09:51] VITALS: BP 118/71; PULSE 74; RESP 17; TEMP 36.9
--- NOTE | 2021-08-11 10:15 | P.PN_ITS ---
Subjective Subjective: Mrs. Dsouza 20-year-old female G1, P1 is status post primary low transverse delivery day 1. Refers pain well under control, and ambulating without difficulty. Vitals/I&O/Wt Last Vital Signs Temp 98.5 F 08/11/21 09:51 Pulse 74 08/11/21 09:51 Resp 17 08/11/21 09:51 BP 118/71 08/11/21 09:51 Pulse Ox 98 08/10/21 09:30 08/10/21 08/11/21 08/11/21 22:59 06:59 14:59 Intake Total 3168.75 / 6768.75 1300 / 8068.75 Output Total 300 / 3600 800 / 4400 900 / 900 Balance 2868.75 / 3168.75 500 / 3668.75 -900 / -900 Weight last 48 hrs Weight 78.925 kg Physical Exam Narrative: GA: Alert and oriented ?3. HEENT: WNL. Breasts: engorged Nipples - skin intact Heart: Regular rate and rhythm. Lungs: Clear to auscultation bilaterally. Abdomen: Bowel sounds present, Uterine fundus below umbilicus. No Fundal Tenderness. minimal tenderness, incision clean and dry, no redness, pain or edema. PRODUCT DEVELOPER: normal lochia.. Extremities: No edema, no cyanosis, no calves pain. Urinary Catheter Management: Flores Latex: Cath Placed During This Visit: yes, but has since been removed by the nurse Reason for Continuing Indwelling Catheter: Decision to DC Catheter Urinary Catheter Date of Insertion: 08/10/21 Urinary Catheter Time of Insertion: 07:36 Date Urinary Catheter Removed: 08/11/21 Time Urinary Catheter Discontinued: 01:30 Data : 08/10/21 22:05 A&P Assessment and plan (1) Status post delivery: Mrs. Dsouza 20-year-old female G1, P1 status post elective primary low transverse delivery. She is afebrile and hemodynamically stable postoperative day 1. Ambulating without difficulty. Tolerating diet well. Passing flatus. Status: Acute Plan Continue postop observation Attestations Medical Necessity Statement*: In my professional opinion per admitting barrington gnosis Coding Level of Care Code Acute Ride Assembly Supervisor for Chg Fwd Diagnoses Status post delivery Z98.891
[2021-08-11 16:34] VITALS: BP 102/82; PULSE 78; RESP 18; TEMP 37.1
[2021-08-12 04:06] VITALS: BP 108/68; PULSE 60; RESP 16
[2021-08-12] MEDS: prenatal vitamin Capsule 1 CAP PO (09:08)
[2021-08-12] MEDS: HYDROcodone-acetaminophen 5-325 mg Tablet PO (09:08)
[2021-08-12] MEDS: ibuprofen 800 mg tablet PO (09:08)
[2021-08-12] MEDS: docusate sodium 100 mg Capsule PO (09:08)
--- NOTE | 2021-08-12 09:38 | P.DS_ITS ---
Discharge Providers ROTARY SHEAR OPERATOR Date of Admission: 08/10/21 05:41 Date of Discharge: 08/12/21 Attending Provider at Admission: Jon Haynes MD Attending Provider at Discharge: Jon Haynes MD Primary Care Provider: Leelee Levy Diagnoses at Discharge Discharge Diagnosis (1) Status post delivery: Status: Acute Reason for Visit Reason for Visit: C-sect 08-10-21 Hospital Course Hospital Course Mrs. Del Real 20 Y/o female with IUP at 39 weeks came to L&D for elective primary low transverse delivery. She had an uneventful care. The primary low transverse delivery was performed without complications. She delivery of viable term male 8/9 with weight 3130 gms. Her and postop recovery was uneventful. She is febrile and hemodynamically stable postoperative day 2. Tolerating diet well. Ambulating without difficulty. Pain under control. Information Peripartum Data: Delivery Method: Physical Exam Narrative: GA; alert and oriented x 3 HEENT: normal Breasts: engorged Nipples - skin intact Lungs; clear to auscultation Heart: regular rhythm, no murmurs. Abd: Appropriately tender. BS+. Uterine fundus below umbilicus. No Fundal Tenderness. Minimal tenderness, incision clean and dry, no redness, pain or edema Perineum: normal lochia. Extremities: no edema, no cyanosis, no tenderness. Urinary Catheter Management: Flores Latex: Cath Placed During This Visit: yes, but has since been removed by the nurse Reason for Continuing Indwelling Catheter: Decision to DC Catheter Urinary Catheter Date of Insertion: 08/10/21 Urinary Catheter Time of Insertion: 07:36 Date Urinary Catheter Removed: 08/11/21 Time Urinary Catheter Discontinued: 01:30 History History History 2 Term 0 Miscarriages/Ectopic 1 0 Living Children 0 Discharge Data Studies Completed and Pending Laboratory Results WBC 12.9 10^3/uL (4.5-13.0) 08/10/21 22:05 RBC 3.37 10^6/uL (4.1-5.3) L 08/10/21 22:05 Hgb 10.6 g/dL (11.5-15.3) L 08/10/21 22:05 Hct 30.8 % (37.0-47.0) L 08/10/21 22:05 MCV 91.4 fl (81-99) 08/10/21 22:05 MCH 31.5 pg (28.0-34.0) 08/10/21 22:05 MCHC 34.4 g/dL (30.0-36.0) 08/10/21 22:05 RDW 13.4 % (12.1-15.1) 08/10/21 22:05 Plt Count 201 10^3/cmm (130-400) 08/10/21 22:05 MPV 10.0 fL (7.4-10.4) 08/10/21 22:05 Neut % (Auto) 70.1 % 08/10/21 05:55 Lymph % (Auto) 20.6 % 08/10/21 05:55 [place] % (Auto) 6.7 % 08/10/21 05:55 Eos % (Auto) 1.7 % 08/10/21 05:55 Baso % (Auto) 0.3 % 08/10/21 05:55 Neut # (Auto) 7.12 10^3/uL (1.8-8.0) 08/10/21 05:55 Lymph # (Auto) 2.1 10^3/uL (1.5-6.5) 08/10/21 05:55 [place] # (Auto) 0.7 10^3/uL (0.2-0.9) 08/10/21 05:55 Eos # (Auto) 0.2 10^3/uL (0.0-0.8) 08/10/21 05:55 Baso # (Auto) 0.0 10^3/uL (0.0-0.1) 08/10/21 05:55 Nucleated RBC % (auto) 0 % 08/10/21 05:55 Nucleated RBCs # 0.0 /100WBC 08/10/21 05:55 Vitals Last Vital Signs Temp 98.8 F 08/11/21 16:34 Pulse 60 08/12/21 04:06 Resp 16 08/12/21 04:06 BP 108/68 08/12/21 04:06 Pulse Ox 98 08/10/21 09:30 Discharge Plan Discharge Patient Disposition: Home Condition: Stable Prescriptions: New hydrocodone-acetaminophen 5-325 mg tablet 1 tab PO Q4H PRN (Reason: pain) Qty: 30 0RF ferrous sulfate [Iron (ferrous sulfate)] 325 mg (65 mg iron) tablet 325 mg PO BID Qty: 60 0RF acetaminophen 325 mg capsule 325 mg PO Q4H PRN (Reason: fever or pain) Qty: 60 0RF docusate sodium [Colace] 100 mg capsule 100 mg PO BID Qty: 60 0RF ibuprofen 800 mg tablet 800 mg PO TID PRN (Reason: pain) Qty: 60 0RF Continued prenat.vits,charles,two-deck-rnltd Tablet 1 tab PO DAILY 0RF cranberry fruit PO .daily 0RF latanoprost 0.005 % drops 1 drp ophthalmic (eye) DAILY 0RF Discharge Orders: Discharge Order (Routine); Ordered 08/12/21 Ordered By: Jon Haynes Referrals: Jon Haynes MD [Physician] - 08/26/21 10:45 am (2 week incision check: 08/26/21 @10:45. 6 week post-: 09/23/21 @2:30. ) Discharge Diet: Usual diet Discharge Activity: Limit activity as instructed Patient Instructions: Depression (DC), Bleeding (DC), Preeclampsia and Eclampsia After Delivery (GEN), OB WHC, OB Discharge Report, OB Food/Drug Interaction Guide, Opioid Safety, OB Home Care Activity Restrictions/Additional Instructions: 1. Please call [facility] on next working day to make your post-operative appointment in 2 weeks. 2. Please stay home until you come back to the clinic on first post-operative check up. 3. Please follow instructions on your medications CAREFULLY. 4. If you have abdominal incision, do not cover it unless dressing is necessary because of drainage. OK to shower, but avoid bath. Leave steri-strips until they fall off. If they are still on one week after surgery, you may remove them. 5. If you had vaginal surgery or vaginal repair, Dr. Haynes may instruct you to take SITZ bath. 6. Yellow, blood tinged odorous vaginal discharge is usually normal after hysterectomy or vaginal surgeries. 7. No sexual intercourse, tampons, or douches until you are completely released from the post-operative care. 8. Avoid constipation by eating right and maybe using some Metamucil or Milk of Magnesia. 9. All prescription refills are given during the working hours. Please do no wait till it runs out. Call the clinic at [phone] before your medication runs out. The clinic will get in touch with your doctor to prescribe medications if necessary. 10. Please remain within 40 mile radius from our hospital because emergencies do happen now and then during the post-operative period. 11. If you have stairs at home, take one step at a time slowly and minimize the number of trips. It helps to stay in one floor for the next few days. No lifting except what you can lift by one hand until you are released from the post-operative care. 12. Driving is discouraged until you are well healed. It may be 3-4 weeks before you feel strong enough to drive. You should be able to turn and look through the rear window without pain and you should be able to push the brake pedal very hard without pain before you drive. No fast rules, but SAFETY should be your primary concern. DO NOT drive if you are on sedating medications such as narcotics. 13. Call the clinic (during working hours) to make urgent appointment or go to the Emergency room, if any of the following occurs: i. Vaginal bleeding becomes heavy, more than a period. ii. Incision becomes red and sore, or drains pus. iii. Your temperature is over 100.4 or you have chill. iv. IV site becomes red and swollen (a little ``knot?? is usually OK) v. Persistent nausea and vomiting vi. Persistent constipation or diarrhea vii. Rash or allergic reaction to medications. Discharge Attestations ROTARY SHEAR OPERATOR Time Spent in Discharge Care*: greater than 30 min Coding Level of Care Code Acute Industrial Commercial Groundskeeper for Chg Fwd Diagnoses Status post delivery Z98.891
[2021-08-12 10:34] VITALS: BP 108/68; PULSE 72; RESP 18; TEMP 37; O2SAT 99
[2021-08-12 12:22] VITALS: BP 108/68; PULSE 72; RESP 18; TEMP 37; O2SAT 99
== END 2021-08-12 12:20 | disposition home or self-care (01) | DRG 786 ==
PROVIDERS: Admitting Provider Obstetrics & Gynecology; PCP Nurse Practitioner Family; Visit Provider Obstetrics & Gynecology
PROC: 10D00Z1 Extraction of Products of Conception, Low, Open Approach (ICD-10-PCS; CPT 59514; principal; 2021-08-10 07:00)
DX: O99.344 Other mental disorders complicating childbirth (principal); O99.42 Diseases of the circulatory system complicating childbirth; I34.1 Nonrheumatic mitral (valve) prolapse; Z3A.39 39 weeks gestation of pregnancy; Z37.0 Single live birth; F41.8 Other specified anxiety disorders; F44.5 Conversion disorder with seizures or convulsions; F43.10 Post-traumatic stress disorder, unspecified
CPT/HCPCS: 36415; 51702; 59025; 59409; 85025; 85027; 96372; 96374; 96376; C9290; J1200; J1885; J2274; J2405; J2765; J3010; J3490; J7030

== ENCOUNTER → 2021-09-27 12:03 | Outpatient (BNVA) | payer MEDICAID, SELFPAY | PROVIDERS: PCP Nurse Practitioner Family; Visit Provider Nurse Practitioner Women's Health | DX: Z01.419 Encounter for gynecological examination (general) (routine) without abnormal findings (principal); F53.0 Postpartum depression | CPT/HCPCS: 88175 ==

== ENCOUNTER 2021-10-13 23:12 | Emergency (ER) | payer OTHER, MEDICAID, SELFPAY ==
[2021-10-13 23:30] VITALS: BP 114/82; PULSE 77; RESP 18; TEMP 36.8; O2SAT 99; BMI 29.9
--- NOTE | 2021-10-14 | ECG_ITS ---
[facility] Test Date: 2021-10-13 Pat Name: Kavita Zamudio Department: Room: Gender: Female Canoe Inspector: : 2000 Requested By: Bob Kaye Order Number: [id number] Nieto MD: Parth Ahumada M.D. Measurements Intervals [place] Rate: 73 P: 73 ND: 155 QRS: 74 QRSD: 84 T: 72 QT: 380 QTc: 420 Interpretive Statements SINUS RHYTHM No previous ECG available for comparison Electronically Signed On 10-14-2021 18:04:27 CDT by Parth Ahumada M.D. [email or web address]
[2021-10-14 00:10] LABS: Basophils % 0.4 %; Eosinophils # 0.3 10^3/uL (0.0-0.8); Eosinophils % 2.7 %; Hematocrit 41.4 % (37.0-47.0); Hemoglobin 13.8 g/dL (11.5-15.3); Lymphocytes # 2.7 10^3/uL (1.5-6.5); Lymphocytes % 28.2 %; Mean Corpuscular HGB Conc 33.3 g/dL (30.0-36.0); Mean Corpuscular Hemoglobin 30.5 pg (28.0-34.0); Mean Corpuscular Volume 91.6 fl (81-99); Mean Platelet Volume 9.2 fL (7.4-10.4); Monocytes # 0.6 10^3/uL (0.2-0.9); Monocytes % 6.6 %; Neutrophils # 5.93 10^3/uL (1.8-8.0); Neutrophils % 61.9 %; Nucleated Red Blood Cells % 0 %; Platelet Count 301 10^3/cmm (130-400); Red Blood Count 4.52 10^6/uL (4.1-5.3); Red Cell Distribution Width 12.2 % (12.1-15.1); White Blood Count 9.6 10^3/uL (4.5-13.0)
[2021-10-14 00:34] LABS: Troponin T (5th) Once 6 ng/L (0-10)
[2021-10-14 00:43] LABS: Alanine Aminotransferase 29 U/L (0-33); Albumin Level 4.2 g/dL (3.5-5.2); Alkaline Phosphatase 138 IU/L (35-105); Anion Gap 13.8 (5-19); Aspartate Amino Transferase 26 U/L (0-32); Blood Urea Nitrogen 11 mg/dL (6-20); Calcium 9.2 mg/dL (8.5-10.5); Carbon Dioxide 27 mmol/L (22-29); Chloride 103 mmol/L (98-107); Globulin 2.8 g/dL (1.3-4.6); Glomerular Filtration Rate 106.7 mL/min (90-130); Glucose 85 mg/dL (65-115); NT Pro B Type Natriuretic Pept 29 pg/mL (0-125); Osmolality Calculated 289 mOsm/kg (285-295); Potassium 3.8 mmol/L (3.5-5.1); Sodium 140 mmol/L (136-145); Total Bilirubin 0.3 mg/dL (0.15-1.2)
--- NOTE | 2021-10-14 00:51 | ED_ITS ---
HPI - Chest Pain General: Chief Complaint: Chest Pain Stated Complaint: abd pain, SOB Time Seen by Provider: 10/13/21 23:20 History of Present Illness: Ms. Zamudio is a 20-year-old lady approximately 2 months presenting with chest discomfort, shortness of breath, and abdominal discomfort in the epigastric region. Symptom onset was approximately 1 week ago and symptoms have been intermittent since that time. She notes shortness of breath associated with presyncopal feeling often associated with exertion. She reports mild associated epigastric and chest discomfort. Reports her scar is healing well, no reported evidence of infection. Intensity symptoms is moderate. Course is intermittent. No other specific changes in health, exacerbating, or alleviating factors identified. Onset (ago): week(s) Timing of current episode: episodic Prior episodes: No Onset: during rest Pain location: substernal Pain radiation: abdomen and other Severity: moderate Relieving factors: nothing Exacerbating factors: nothing Review of Systems General: Reports: 10 or more systems reviewed and unremarkable except in HPI and below PFSH ED PFSH: Medical History Functional neurological symptom disorder with attacks or seizures PTSD pseudoseizures--evaluated by [facility] Neu[facility]. Manages with communicative behavior. Generalized anxiety disorder History of reactive attachment disorder Major depressive disorder, recurrent, moderate Mitral valve prolapse Surgical History H/O eye surgery lazy eye correction History of section (~08/2021) Primary elective section performed by Dr. Haynes Family History Other Adopted Female Reproductive History: Date of last menstrual period: 09/13/21 Physical Exam Const: COMMON NORMALS: alert GENERAL APPEARANCE: cooperative and well developed HENMT: COMMON NORMALS: normocephalic and atraumatic HEAD & SCALP: normocephalic and atraumatic Eye: COMMON NORMALS: conjunctivae normal CONJUNCTIVA: Yes conjunctivae normal SCLERA: sclerae normal Neck/C-Spine: COMMON NORMALS: supple GENERAL: Yes trachea midline Resp: COMMON NORMALS: normal respiratory effort EFFORT & INSPECTION: Yes able to speak in complete sentences Cardio: COMMON NORMALS: regular rate and regular rhythm RATE: regular rate RHYTHM: regular rhythm GI: COMMON NORMALS: Soft to palpation PALPATION: Yes Soft to palpation and No Tenderness to palpation present (GI) Extremity: GENERAL: Yes normal exam except as noted and No edema Neuro: COMMON NORMALS: moves all extremities SENSORIUM/ORIENTATION: Yes alert and No Orientation impaired Psych: COMMON NORMALS: mental status grossly normal and Normal thought process present THOUGHT PROCESS: Normal thought process present Course ED course: - Patient was seen and evaluated by me at bedside - Patient placed on cardiac monitors, IV access obtained - Initial evaluation notable for exam as above. Nontoxic appearance, vital satisfactory. - Labs and xrays personally interpreted by me ?GI cocktail ordered - Labs notable for no leukocytosis, normal hemoglobin. D-dimer negative. No acute metabolic abnormality. - Imaging notable for no lobar consolidation or pneumothorax on chest x-ray. - Upon serial reexamination after treatment the patient was improved. I discussed possibility of further imaging however based on physical exam and a discussion with patient we will forego additional imaging at this time. - Based on patient history, evaluation, and testing as interpreted the most likely cause of the patient's condition is chest discomfort and abdominal pain of unclear etiology. - The results of ED evaluation were discussed with the patient including prescriptions and/or symptomatic cares (if applicable) including appropriate and responsible use, followup plan, and return precautions. The patient verbalized understanding and felt safe for discharge. - Patient discharged in satisfactory condition. Note: Click bubbles or prepopulated beverly in note writing are used for assistance with data collection and billing and are inherently more limited than narrative and other text portions of this note. Please use narrative for additional clinical history and defer to narrative/free test for any case of contradictory information. If information appears in only free text or click bubble it should be considered present or absent as reported. Please contact note software writer for clarifications of clinical information or contradictory information. MDM is a brief summary, contradictory or erroneous seeming information should be clarified and full note should be reviewed. Vital Signs: Vital signs: Vital Signs Temperature 98.3 F 10/13/21 23:30 Pulse Rate 74 10/14/21 02:19 Respiratory Rate 18 10/14/21 02:19 Blood Pressure 114/69 10/14/21 02:19 Pulse Oximetry 99 10/14/21 02:19 Oxygen Delivery Al thod 10/14/21 01:23 MDM - Chest Pain Medical Decision Making 20-year-old female 2 months presenting with abdominal and chest discomfort. No clear etiology identified on ED evaluation however she was improved with GI cocktail. Laboratory studies and D-dimer satisfactory. EKG without evidence of acute abnormality. Satisfactory for outpatient management with strict return precautions given. Medical Records I reviewed the patient's medical records. Lab Data I reviewed the patient's lab results. : 10/14/21 00:00 10/14/21 00:00 Radiology Impressions Chest X-Ray 10/14/21 01:28 IMPRESSION: No chest radiographic evidence of acute cardiopulmonary disease. Laboratory Results WBC 9.6 10^3/uL (4.5-13.0) 10/14/21 00:00 RBC 4.52 10^6/uL (4.1-5.3) 10/14/21 00:00 Hgb 13.8 g/dL (11.5-15.3) 10/14/21 00:00 Hct 41.4 % (37.0-47.0) 10/14/21 00:00 MCV 91.6 fl (81-99) 10/14/21 00:00 MCH 30.5 pg (28.0-34.0) 10/14/21 00:00 MCHC 33.3 g/dL (30.0-36.0) 10/14/21 00:00 RDW 12.2 % (12.1-15.1) 10/14/21 00:00 Plt Count 301 10^3/cmm (130-400) 10/14/21 00:00 MPV 9.2 fL (7.4-10.4) 10/14/21 00:00 Neut % (Auto) 61.9 % 10/14/21 00:00 Lymph % (Auto) 28.2 % 10/14/21 00:00 [place] % (Auto) 6.6 % 10/14/21 00:00 Eos % (Auto) 2.7 % 10/14/21 00:00 Baso % (Auto) 0.4 % 10/14/21 00:00 Neut # (Auto) 5.93 10^3/uL (1.8-8.0) 10/14/21 00:00 Lymph # (Auto) 2.7 10^3/uL (1.5-6.5) 10/14/21 00:00 [place] # (Auto) 0.6 10^3/uL (0.2-0.9) 10/14/21 00:00 Eos # (Auto) 0.3 10^3/uL (0.0-0.8) 10/14/21 00:00 Baso # (Auto) 0.0 10^3/uL (0.0-0.1) 10/14/21 00:00 Nucleated RBC % (auto) 0 % 10/14/21 00:00 Nucleated RBCs # 0.0 /100WBC 10/14/21 00:00 D-Dimer 0.56 ug/mIFEU (0-0.59) 10/14/21 00:00 Sodium 140 mmol/L (136-145) 10/14/21 00:00 Potassium 3.8 mmol/L (3.5-5.1) 10/14/21 00:00 Chloride 103 mmol/L (98-107) 10/14/21 00:00 Carbon Dioxide 27 mmol/L (22-29) 10/14/21 00:00 Anion Gap 13.8 (5-19) 10/14/21 00:00 BUN 11 mg/dL (6-20) 10/14/21 00:00 Creatinine 0.7 mg/dL (0.5-0.9) 10/14/21 00:00 GFR Calculation 106.7 mL/min (90-130) 10/14/21 00:00 Glucose 85 mg/dL (65-115) 10/14/21 00:00 Calculated Osmolality 289 mOsm/kg (285-295) 10/14/21 00:00 Calcium 9.2 mg/dL (8.5-10.5) 10/14/21 00:00 Total Bilirubin 0.3 mg/dL (0.15-1.2) 10/14/21 00:00 AST 26 U/L (0-32) 10/14/21 00:00 ALT 29 U/L (0-33) 10/14/21 00:00 Alkaline Phosphatase 138 IU/L (35-105) H 10/14/21 00:00 Troponin T Gen 5 ng/L 6 ng/L (0-10) 10/14/21 00:00 NT-Pro-B Natriuret Pep 29 pg/mL (0-125) 10/14/21 00:00 Total Protein 7.0 g/dL (6.6-8.7) 10/14/21 00:00 Albumin 4.2 g/dL (3.5-5.2) 10/14/21 00:00 Globulin 2.8 g/dL (1.3-4.6) 10/14/21 00:00 Discharge Plan Discharge Patient Disposition: Home Clinical Impression: Atypical chest pain, Shortness of breath, Abdominal pain Condition: Stable Prescriptions: No Action cranberry fruit PO .daily latanoprost 0.005 % drops 1 drp ophthalmic (eye) DAILY medroxyprogesterone [Depo-Provera] 150 mg/mL suspension 150 mg IM .every 3 months Qty: 1 0RF ibuprofen 800 mg tablet 800 mg PO TID PRN (Reason: pain) Qty: 60 0RF Discharge Orders: Discharge ED (Routine); Ordered 10/14/21 Ordered By: Bob Kaye Referrals: Leelee Levy VISUAL C DEVELOPER [Primary Care Provider] - Discharge Diet: Usual diet Discharge Activity: Increase activity as tolerated Patient Instructions: Chest Pain (ED), Abdominal Pain (ED), Shortness of Breath (ED) Activity Restrictions/Additional Instructions: Thank you for visiting the emergency department. You were seen and evaluated for abdominal discomfort, shortness of breath, chest discomfort and lightheadedness. The exact cause of your symptoms is unclear though does not appear to need hospitalization at this time. Please follow-up with your primary care provider. Please return to the emergency department for worsening symptoms or anything else that you are concerned about a feel needs emergency department evaluation. Coding Level of Care Code ED Agility Instructor for Pradeep Yañez
[2021-10-14 01:11] LABS: D Dimer 0.56 ug/mIFEU (0-0.59)
[2021-10-14 01:23] VITALS: BP 172/87; PULSE 74; RESP 25; O2SAT 94
--- NOTE | 2021-10-14 01:28 | XRR_ITS ---
PROCEDURE INFORMATION: Exam: XR Chest Exam date and time: 10/14/2021 1:33 AM Age: 20 years old Clinical indication: Pain; Shortness of breath; Chest pressure; Patient HX: C/O chest discomfort with SOB. ; Additional info: Chest pain, SOB TECHNIQUE: Imaging protocol: Radiologic exam of the chest. Views: 1 view. COMPARISON: CR XR shoulder LT min 2V* [id number] 10/02/2019 9:37 AM FINDINGS: Lungs: There are normal lung volumes without interstitial or airspace opacities. Pleural spaces: There are no pleural effusions or pneumothorax. Heart/Mediastinum: The heart size is normal. The mediastinal contour is normal. The trachea is in the midline. Bones/joints: No acute abnormalities. XR/XR chest 1V portable [id number] IMPRESSION: No chest radiographic evidence of acute cardiopulmonary disease.
[2021-10-14] MEDS: lidocaine 2% viscous 15 ML, aluminum-mag hydrox-simethicon 30 ML, sucralfate oral liq 1 GM PO (01:35)
[2021-10-14 02:19] VITALS: BP 114/69; PULSE 74; RESP 18; O2SAT 99
== END 2021-10-14 02:21 | disposition home or self-care (01) ==
PROVIDERS: Emergency Provider Emergency Medicine; PCP Nurse Practitioner Family
DX: R07.89 Other chest pain (principal); R06.02 Shortness of breath; R10.9 Unspecified abdominal pain
CPT/HCPCS: 71045; 80053; 83880; 84484; 85025; 85378; 93005; 99285

== ENCOUNTER → 2022-01-12 09:57 | Outpatient (BNVA) | payer MEDICAID, SELFPAY | PROVIDERS: PCP Nurse Practitioner Family; Visit Provider Nurse Practitioner Women's Health | DX: Z30.9 Encounter for contraceptive management, unspecified (principal) | CPT/HCPCS: 81025 ==

== ENCOUNTER → 2022-03-09 10:13 | Outpatient (BNVA) | payer MEDICAID, SELFPAY | PROVIDERS: PCP Nurse Practitioner Family; Visit Provider Nurse Practitioner Women's Health | DX: Z30.9 Encounter for contraceptive management, unspecified (principal) | CPT/HCPCS: 81025 ==

== ENCOUNTER → 2022-03-10 16:07 | Outpatient (BNVA) | payer MEDICAID, SELFPAY | PROVIDERS: PCP Nurse Practitioner Family; Visit Provider Nurse Practitioner Women's Health | DX: Z30.9 Encounter for contraceptive management, unspecified (principal); N92.1 Excessive and frequent menstruation with irregular cycle | CPT/HCPCS: 84702 ==

== ENCOUNTER → 2022-03-16 10:00 | Outpatient (BNVA) | payer MEDICAID, SELFPAY | PROVIDERS: PCP Nurse Practitioner Family; Visit Provider Nurse Practitioner Women's Health | DX: N64.52 Nipple discharge (principal); N92.1 Excessive and frequent menstruation with irregular cycle; Z30.016 Encounter for initial prescription of transdermal patch hormonal contraceptive device | CPT/HCPCS: 84146; 84443 ==

== ENCOUNTER → 2022-03-21 15:38 | Outpatient (BNVA) | payer MEDICAID, SELFPAY | PROVIDERS: PCP Nurse Practitioner Family; Visit Provider Nurse Practitioner Women's Health | DX: R79.89 Other specified abnormal findings of blood chemistry (principal) | CPT/HCPCS: 84439; 84443 ==

== ENCOUNTER → 2022-08-09 10:18 | Outpatient (BNVA) | payer MEDICAID, SELFPAY | PROVIDERS: PCP Nurse Practitioner Family; Visit Provider Nurse Practitioner Women's Health | DX: Z78.9 Other specified health status (principal); E03.9 Hypothyroidism, unspecified | CPT/HCPCS: 84443; 84702 ==

== ENCOUNTER → 2022-08-18 10:18 | Outpatient (BNVA) | payer MEDICAID, SELFPAY | PROVIDERS: PCP Nurse Practitioner Family; Visit Provider Obstetrics & Gynecology | DX: Z36.87 Encounter for antenatal screening for uncertain dates (principal) | CPT/HCPCS: 76817 ==

== ENCOUNTER → 2022-08-21 10:20 | Outpatient (BNVA) | payer MEDICAID, SELFPAY | PROVIDERS: PCP Nurse Practitioner Family; Visit Provider Nurse Practitioner Women's Health | DX: Z34.90 Encounter for supervision of normal pregnancy, unspecified, unspecified trimester (principal) | CPT/HCPCS: 81000 ==

== ENCOUNTER → 2022-09-11 10:50 | Outpatient (BNVA) | payer MEDICAID, SELFPAY | PROVIDERS: PCP Nurse Practitioner Family; Visit Provider Obstetrics & Gynecology | DX: O09.899 Supervision of other high risk pregnancies, unspecified trimester (principal); E03.9 Hypothyroidism, unspecified; F44.5 Conversion disorder with seizures or convulsions; I34.1 Nonrheumatic mitral (valve) prolapse; Z3A.00 Weeks of gestation of pregnancy not specified | CPT/HCPCS: 80307; 81000; 84443; 85027; 86592; 86762; 86803; 86850; 86900; 87086; 87340; 87806 ==

== ENCOUNTER 2022-09-24 21:00 | Emergency (ER) | payer MEDICAID, SELFPAY ==
[2022-09-24 21:07] VITALS: BP 124/76; PULSE 85; RESP 16; TEMP 36.7; O2SAT 99; BMI 32.5
[2022-09-24 21:28] LABS: Basophils % 0.3 %; Eosinophils # 0.2 10^3/uL (0.0-0.8); Hematocrit 35.3 % (37.0-47.0); Hemoglobin 12.3 g/dL (11.5-15.3); Lymphocytes # 1.7 10^3/uL (0.8-4.8); Lymphocytes % 13.6 %; Mean Corpuscular HGB Conc 34.8 g/dL (30.0-36.0); Mean Corpuscular Hemoglobin 30.8 pg (28.0-34.0); Mean Corpuscular Volume 88.5 fl (81-99); Mean Platelet Volume 9.3 fL (7.4-10.4); Monocytes # 0.5 10^3/uL (0.2-0.9); Monocytes % 4.3 %; Neutrophils # 9.63 10^3/uL (1.8-7.7); Neutrophils % 79.5 %; Nucleated Red Blood Cells % 0 %; Platelet Count 264 10^3/cmm (130-400); Red Blood Count 3.99 10^6/uL (4.1-5.3); Red Cell Distribution Width 13.2 % (12.1-15.1); White Blood Count 12.1 10^3/uL (4.0-10.0)
[2022-09-24 21:47] LABS: Alanine Aminotransferase 11 U/L (0-33); Albumin Level 3.9 g/dL (3.5-5.2); Alkaline Phosphatase 80 U/L (35-105); Anion Gap 17.5 (5-19); Aspartate Amino Transferase 16 U/L (0-32); Blood Urea Nitrogen 5 mg/dL (6-20); Calcium 8.8 mg/dL (8.5-10.5); Carbon Dioxide 19 mmol/L (22-29); Chloride 98 mmol/L (98-107); Globulin 2.5 g/dL (1.3-4.6); Glomerular Filtration Rate 155.7 mL/min (90-130); Glucose 113 mg/dL (65-115); Osmolality Calculated 270 mOsm/kg (285-295); Potassium 3.5 mmol/L (3.5-5.1); Sodium 131 mmol/L (136-145); Total Bilirubin 0.3 mg/dL (0.15-1.2); Total Protein 6.4 g/dL (6.6-8.7)
--- NOTE | 2022-09-24 21:56 | W.ED.PREGNAN ---
HPI - General: Chief complaint: OB/Uterine Contractions Stated complaint: 12 weeks preg- Cramping Time Seen by Provider: 09/24/22 21:39 Source: patient Mode of arrival: ambulatory Limitations: no limitations History of Present Illness: 21-year-old female who is currently 12 weeks states she been having some abdominal cramping along with headaches to going on for last 2 to 3 days denies any vomiting or diarrhea states she had some slight spotting yesterday so she is concerned states that cramping is all over she denies any severe pain rates pain a 1 out of 2 currently. 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 Manages with communicative behavior. Generalized anxiety disorder History of reactive attachment disorder Hypothyroidism Major depressive disorder, recurrent, moderate Mitral valve prolapse Surgical History H/O eye surgery lazy eye correction History of section (~08/2021) Primary elective section performed by Dr. Haynes Family History Other Adopted Physical Exam Const: COMMON NORMALS: no acute distress, patient oriented x3 and healthy appearing HENMT: COMMON NORMALS: normocephalic and atraumatic HEAD & SCALP: normocephalic and atraumatic Eye: COMMON NORMALS: conjunctivae normal CONJUNCTIVA: Yes conjunctivae normal Neck/C-Spine: COMMON NORMALS: full ROM and supple Chest: COMMONS NORMALS: normal inspection of the chest Resp: COMMON NORMALS: normal respiratory effort Cardio: COMMON NORMALS: regular rate, regular rhythm and No murmurs present (Cardio) RATE: regular rate RHYTHM: regular rhythm GI: COMMON NORMALS: Normal to inspection, nondistended, normoactive bowel sounds present, Soft to palpation, non-tender and no masses PALPATION: Yes Soft to palpation Extremity: COMMON NORMALS: normal to inspection and full ROM Neuro: COMMON NORMALS: patient oriented x3, moves all extremities and no focal motor deficits Psych: COMMON NORMALS: mental status grossly normal, Normal thought process present and cooperative THOUGHT PROCESS: Normal thought process present Skin: COMMON NORMALS: no rashes or lesions noted and no wounds GENERAL SKIN EXAM: no rashes or lesions noted Course Vital Signs: Vital signs: Vital Signs Temperature 98.1 F 09/24/22 21:07 Pulse Rate 88 09/24/22 22:19 Respiratory Rate 16 09/24/22 22:19 Blood Pressure 124/76 09/24/22 21:07 Pulse Oximetry 100 09/24/22 22:19 Oxygen Delivery Me thod Room Air 09/24/22 21:07 MDM - OB/Uterine Contractions Medical Decision Making Patient presents here with abdominal pain in is cramping in nature her exam here is benign no signs of surgical abdomen did a bedside ultrasound showed IUP consistent dates heart rate of 148. She feels improved here we will prescribe her Reglan for home she is to follow-up with her OB and 2 to 4 days. She is return if worsening Lab Data I reviewed the patient's lab results. 09/24/22 21:23 09/24/22 21: Laboratory Results WBC 12.1 10^3/uL (4.0-10.0) H 09/24/22 21: RBC 3.99 10^6/uL (4.1-5.3) L 09/24/22 21: Hgb 12.3 g/dL (11.5-15.3) 09/24/22 21: Hct 35.3 % (37.0-47.0) L 09/24/22 21: MCV 88.5 fl (81-99) 09/24/22 21: MCH 30.8 pg (28.0-34.0) 09/24/22 21: MCHC 34.8 g/dL (30.0-36.0) 09/24/22 21: RDW 13.2 % (12.1-15.1) 09/24/22 21: Plt Count 264 10^3/cmm (130-400) 09/24/22 21: MPV 9.3 fL (7.4-10.4) 09/24/22 21: Neut % (Auto) 79.5 % 09/24/22 21: Lymph % (Auto) 13.6 % 09/24/22 21: [place] % (Auto) 4.3 % 09/24/22 21: Eos % (Auto) 2.0 % 09/24/22 21: Baso % (Auto) 0.3 % 09/24/22 21: Neut # (Auto) 9.63 10^3/uL (1.8-7.7) H 09/24/22 21: Lymph # (Auto) 1.7 10^3/uL (0.8-4.8) 09/24/22 21: [place] # (Auto) 0.5 10^3/uL (0.2-0.9) 09/24/22 21: Eos # (Auto) 0.2 10^3/uL (0.0-0.8) 09/24/22 21: Baso # (Auto) 0.0 10^3/uL (0.0-0.1) 09/24/22: Nucleated RBC % (auto) 0 % 09/24/22 21: Nucleated RBCs # 0.0 /100WBC 09/24/22 21: Sodium 131 mmol/L (136-145) L 09/24/22 21: Potassium 3.5 mmol/L (3.5-5.1) 09/24/22 21: Chloride 98 mmol/L (98-107) 09/24/22 21: Carbon Dioxide 19 mmol/L (22-29) L 09/24/22 21: Anion Gap 17.5 (5-19) 09/24/22 21: BUN 5 mg/dL (6-20) L 09/24/22 21: Creatinine 0.5 mg/dL (0.5-0.9) 09/24/22 21: GFR Calculation 155.7 mL/min (90-130) H 09/24/22 21: Glucose 113 mg/dL (65-115) 09/24/22 21: Calculated Osmolality 270 mOsm/kg (285-295) L 09/24/22 21: Calcium 8.8 mg/dL (8.5-10.5) 09/24/22: Total Bilirubin 0.3 mg/dL (0.15-1.2) 09/24/22: AST 16 U/L (0-32) 09/24/22: ALT 11 U/L (0-33) 09/24/22 21: Alkaline Phosphatase 80 U/L (35-105) 09/24/22 21: Total Protein 6.4 g/dL (6.6-8.7) L 09/24/22: Albumin 3.9 g/dL (3.5-5.2) 09/24/22: Globulin 2.5 g/dL (1.3-4.6) 09/24/22: Urine Color Colorless (Yellow) 09/24/22 22:00 Urine Appearance Clear (CLEAR) 09/24/22 22:00 Urine pH 7 (5-7) 09/24/22 22:00 Ur Specific [place] 1.000 (1.005-1.030) L 09/24/22 22:00 Urine Protein Neg (Negative) 09/24/22 22:00 Urine Glucose (UA) Norm (Normal) 09/24/22 22:00 Urine Ketones Negative (Negative) 09/24/22 22:00 Urine Blood Neg (Negative) 09/24/22 22:00 Urine Nitrate Negative (Negative) 09/24/22 22:00 Urine Bilirubin Neg (Negative) 09/24/22 22:00 Urine Urobilinogen Norm mg/dL (Negative) 09/24/22 22:00 Ur Leukocyte Esterase Negative (Negative) 09/24/22 22:00 Discharge Plan Discharge Patient Disposition: Home Clinical Impression: Abdominal pain affecting Condition: Stable Prescriptions: New Reglan 10 mg tablet 10 mg PO Q6H PRN (Reason: nausea and vomiting) Qty: 20 0RF No Action latanoprost 0.005 % drops 1 drp ophthalmic (eye) DAILY prenat.vits,charles,[id number] Tablet 1 tab PO DAILY levothyroxine 75 mcg capsule 75 mcg PO DAILY Qty: 30 1RF Discharge Orders: Discharge ED (Routine); Ordered 09/24/22 Ordered By: Jay Souza Referrals: Leelee Levy FNP [Primary Care Provider] - Discharge Diet: Advance as tolerated Discharge Activity: Resume usual activity Patient Instructions: Abdominal Pain in (ED) Coding Level of Care Code ED Gang Punch Operator for Pradeep Yañez
[2022-09-24 22:09] LABS: Add Urine Microscopic? NO; Charge for UA Resulting for Rev
[2022-09-24] MEDS: metoclopramide 5 mg/mL SDV 2 mL 10 MG IVP (22:10)
[2022-09-24] MEDS: sodium chloride 0.9% 1,000 ML 999 ML IV (22:10)
[2022-09-24] MEDS: diphenhydrAMINE 50 mg/mL SDV 1mL IVP (22:10)
[2022-09-24 22:19] VITALS: PULSE 88; RESP 16; O2SAT 100
[2022-09-24 22:20] LABS: Urine Appearance Clear (CLEAR); Urine Color Colorless (Yellow)
[2022-09-24 22:21] LABS: Bilirubin Urine Neg (Negative); Blood Urine Neg (Negative); Glucose Urine UA Norm (Normal); Ketones Urine Negative (Negative); Leukocyte Esterase Urine Negative (Negative); Nitrate Urine Negative (Negative); Protein Urine Neg (Negative); Urobilinogen Urine Norm (Negative); pH Urine 7 (5-7)
[2022-09-24 23:06] VITALS: BP 106/56; PULSE 80; RESP 16; TEMP 36.7; O2SAT 100
== END 2022-09-24 23:07 | disposition home or self-care (01) ==
PROVIDERS: Emergency Provider Emergency Medicine; PCP Nurse Practitioner Family
DX: O26.891 Other specified pregnancy related conditions, first trimester (principal); R10.9 Unspecified abdominal pain; Z3A.12 12 weeks gestation of pregnancy
CPT/HCPCS: 36415; 80053; 81003; 85025; 96361; 96374; 96375; 99284; J1200; J2765; J7030

== ENCOUNTER → 2022-10-05 09:12 | Outpatient (BNVA) | payer MEDICAID, SELFPAY | PROVIDERS: PCP Nurse Practitioner Family; Visit Provider Obstetrics & Gynecology | DX: O09.899 Supervision of other high risk pregnancies, unspecified trimester (principal); Z3A.00 Weeks of gestation of pregnancy not specified | CPT/HCPCS: 81000; 87491; 87591 ==

== ENCOUNTER → 2022-10-19 10:18 | Outpatient (BNVA) | payer MEDICAID, SELFPAY | PROVIDERS: PCP Nurse Practitioner Family; Visit Provider Nurse Practitioner Women's Health | DX: O09.899 Supervision of other high risk pregnancies, unspecified trimester (principal); E03.9 Hypothyroidism, unspecified; Z36.9 Encounter for antenatal screening, unspecified; I34.1 Nonrheumatic mitral (valve) prolapse; F44.5 Conversion disorder with seizures or convulsions; O34.219 Maternal care for unspecified type scar from previous cesarean delivery; F41.9 Anxiety disorder, unspecified; F32.A Depression, unspecified; Z30.2 Encounter for sterilization; Z3A.16 16 weeks gestation of pregnancy | CPT/HCPCS: 81000; 82105; 84443 ==

== ENCOUNTER → 2022-11-20 09:37 | Outpatient (BNVA) | payer MEDICAID, SELFPAY | PROVIDERS: PCP Nurse Practitioner Family; Visit Provider Nurse Practitioner Women's Health | DX: Z36.87 Encounter for antenatal screening for uncertain dates (principal) | CPT/HCPCS: 76805 ==

== ENCOUNTER → 2022-11-22 10:34 | Outpatient (BNVA) | payer MEDICAID, SELFPAY | PROVIDERS: PCP Nurse Practitioner Family; Referring Provider Obstetrics & Gynecology; Visit Provider Internal Medicine | DX: E03.9 Hypothyroidism, unspecified (principal); I34.1 Nonrheumatic mitral (valve) prolapse; F44.5 Conversion disorder with seizures or convulsions; O09.899 Supervision of other high risk pregnancies, unspecified trimester; O34.219 Maternal care for unspecified type scar from previous cesarean delivery; F41.9 Anxiety disorder, unspecified; F32.A Depression, unspecified; Z30.2 Encounter for sterilization | CPT/HCPCS: 36415; 84439; 84443 ==

== ENCOUNTER → 2022-11-23 10:50 | Outpatient (BNVA) | payer MEDICAID, SELFPAY | PROVIDERS: PCP Nurse Practitioner Family; Visit Provider Obstetrics & Gynecology | DX: O09.899 Supervision of other high risk pregnancies, unspecified trimester (principal); E03.9 Hypothyroidism, unspecified; I34.1 Nonrheumatic mitral (valve) prolapse; F44.5 Conversion disorder with seizures or convulsions; O34.219 Maternal care for unspecified type scar from previous cesarean delivery; F41.9 Anxiety disorder, unspecified; F32.A Depression, unspecified; Z3A.00 Weeks of gestation of pregnancy not specified | CPT/HCPCS: 81000 ==

== ENCOUNTER 2022-11-24 15:27 | Outpatient (CLI) | payer MEDICAID, SELFPAY ==
[2022-11-24 15:19] VITALS: BMI 34.0
[2022-11-24 15:37] VITALS: BP 116/55; PULSE 81
[2022-11-24 15:39] VITALS: TEMP 36.3
[2022-11-24 15:51] VITALS: BP 111/59; PULSE 93
[2022-11-24 16:07] VITALS: BP 112/68; PULSE 83
== END 2022-11-24 16:18 | disposition home or self-care (01) ==
LOC: OPOB 15:27 → OBGYN 15:29
PROVIDERS: PCP Nurse Practitioner Family; Visit Provider Obstetrics & Gynecology
DX: O26.50 Maternal hypotension syndrome, unspecified trimester (principal); Z3A.00 Weeks of gestation of pregnancy not specified
CPT/HCPCS: 99211

== ENCOUNTER → 2022-12-14 10:18 | Outpatient (BNVA) | payer MEDICAID, SELFPAY | PROVIDERS: PCP Nurse Practitioner Family; Visit Provider Nurse Practitioner Women's Health | DX: O09.899 Supervision of other high risk pregnancies, unspecified trimester (principal); O26.899 Other specified pregnancy related conditions, unspecified trimester; R12 Heartburn; E03.9 Hypothyroidism, unspecified; O26.892 Other specified pregnancy related conditions, second trimester; Z30.2 Encounter for sterilization; F41.9 Anxiety disorder, unspecified; F32.A Depression, unspecified; Z36.2 Encounter for other antenatal screening follow-up; Z3A.24 24 weeks gestation of pregnancy | CPT/HCPCS: 81000; 82950 ==

== ENCOUNTER → 2022-12-18 08:43 | Outpatient (BNVA) | payer MEDICAID, SELFPAY | PROVIDERS: PCP Nurse Practitioner Family; Visit Provider Obstetrics & Gynecology | DX: E03.9 Hypothyroidism, unspecified (principal); F32.A Depression, unspecified; F41.9 Anxiety disorder, unspecified; F44.5 Conversion disorder with seizures or convulsions; I34.1 Nonrheumatic mitral (valve) prolapse; O09.899 Supervision of other high risk pregnancies, unspecified trimester; O34.219 Maternal care for unspecified type scar from previous cesarean delivery; Z30.2 Encounter for sterilization | CPT/HCPCS: 76816; 84439; 84443 ==

== ENCOUNTER 2022-12-21 12:11 | Outpatient (CLI) | payer MEDICAID, SELFPAY ==
[2022-12-21 12:25] VITALS: BP 119/64; PULSE 83; RESP 16; TEMP 36.8
[2022-12-21 12:33] VITALS: RESP 16
[2022-12-21 12:58] VITALS: BP 126/69; PULSE 98
[2022-12-21 13:04] LABS: Bilirubin Urine Neg (Negative); Blood Urine Neg (Negative); Glucose Urine UA Norm (Normal); Ketones Urine Negative (Negative); Leukocyte Esterase Urine Negative (Negative); Nitrate Urine Negative (Negative); Protein Urine Neg (Negative); Sulfosalicylic Acid Urine Negative (Negative); Urine Appearance Clear (CLEAR); Urine Color Yellow (Yellow); Urobilinogen Urine Norm (Negative); pH Urine 8 (5-7)
[2022-12-21 13:58] VITALS: BP 110/57; PULSE 77
[2022-12-21 14:28] VITALS: BP 127/72; PULSE 73
[2022-12-21 14:45] VITALS: BP 127/72; PULSE 73
== END 2022-12-21 14:45 | disposition home or self-care (01) ==
LOC: OPOB 12:19 → OBGYN 12:20
PROVIDERS: PCP Nurse Practitioner Family; Visit Provider Obstetrics & Gynecology
DX: O26.899 Other specified pregnancy related conditions, unspecified trimester (principal); Z3A.00 Weeks of gestation of pregnancy not specified; R10.9 Unspecified abdominal pain
CPT/HCPCS: 81001; 99211

== ENCOUNTER → 2022-12-22 13:29 | Outpatient (BNVA) | payer MEDICAID, SELFPAY | PROVIDERS: PCP Nurse Practitioner Family; Visit Provider Obstetrics & Gynecology | DX: O09.899 Supervision of other high risk pregnancies, unspecified trimester (principal); Z3A.25 25 weeks gestation of pregnancy | CPT/HCPCS: 81000 ==

== ENCOUNTER 2022-12-29 09:44 | Outpatient (CLI) | payer OTHER, MEDICAID, SELFPAY ==
--- NOTE | 2022-12-29 | USCV_ITS ---
Antonina Kavita Zamudio Age: 22 Gender: F : 2000 Exam Date: 12/29/2022 10:02 Ordering Phys: Eugenio Vazquez MD ([email or web address]) Technologist: Everette Kyle Exam Location: [facility] Indication: mvp BP: 106 / 54 HR: 89 Rhythm: Sinus Technical Quality: Technically difficult study MEASUREMENTS (Male / Female) Normal Values 2D ECHO LVOT Diameter 2.1 cm LV Ejection Fraction MOD 2C 66.9 % LV Ejection Fraction 2C AL 68.0 % LA Diameter 3.4 cm Aorta at Sinotubular Diameter 2.6 cm IVC Diameter 1.4 cm M-MODE Aortic Annulus Diameter 3.3 cm LA Ao Ratio MM 1.2 MV E Point Septal Separation 0.6 cm DOPPLER AV Peak Velocity 129.0 cm/s LVOT Peak Velocity 74.0 cm/s AV Area Cont Eq vti 2.6 cm squared AV Area Cont Eq pk 1.9 cm squared MV Area PHT 4.2 cm squared Mitral E to A Ratio 1.0 MV E' Velocity 37.0 cm/s Mitral E to MV E' Ratio 4.1 Mitral E to LV E' Lateral Ratio 4.0 Mitral E to LV E' Septal Ratio 4.3 TR Peak Velocity 83.0 cm/s TR Peak Gradient 2.8 mmHg TV Peak E Velocity 66.0 cm/s Right Atrial Pressure 3.0 mmHg Pulmonary Artery Systolic Pressu 5.8 mmHg PV Peak Velocity 97.0 cm/s FINDINGS Left Ventricle Left ventricle is normal in size. LV systolic function is normal with EF of 60 to 65%. No regional wall motion abnormalities are seen. Right Ventricle Normal in size and function Right Atrium Normal in size Left Atrium Normal in size Mitral Valve Mild mitral valve prolapse is noted. Mild mitral regurgitation. Aortic Valve Structurally normal aortic valve. No significant stenosis or regurgitation. Tricuspid Valve Trace tricuspid regurgitation. Insufficient TR jet to calculate RVSP. Pulmonic Valve Mild pulmonic regurgitation. Pericardium Normal Aorta Normal in size IVC Appears to be normal CONCLUSIONS LV systolic function is normal with EF of 60 to 65%. Mild mitral regurgitation. Trace tricuspid regurgitation. Mild pulmonic regurgitation. No comparison studies available. Augie Loera MD (Electronically Signed) Final Date: 31 December 2022 12:13 S
== END 2022-12-29 09:45 | disposition home or self-care (01) ==
LOC: RAD 09:44
PROVIDERS: PCP Nurse Practitioner Family; Visit Provider Internal Medicine Cardiovascular Disease
DX: I34.1 Nonrheumatic mitral (valve) prolapse (principal); I34.0 Nonrheumatic mitral (valve) insufficiency; I37.1 Nonrheumatic pulmonary valve insufficiency
CPT/HCPCS: 93306

== ENCOUNTER → 2023-01-18 09:42 | Outpatient (BNVA) | payer OTHER, MEDICAID, SELFPAY | PROVIDERS: PCP Nurse Practitioner Family; Visit Provider Obstetrics & Gynecology | DX: O09.899 Supervision of other high risk pregnancies, unspecified trimester (principal); Z3A.28 28 weeks gestation of pregnancy | CPT/HCPCS: 81000; 85025 ==

== ENCOUNTER → 2023-01-29 09:51 | Outpatient (BNVA) | payer OTHER, MEDICAID, SELFPAY | PROVIDERS: PCP Nurse Practitioner Family; Visit Provider Obstetrics & Gynecology | DX: O09.899 Supervision of other high risk pregnancies, unspecified trimester (principal); Z3A.30 30 weeks gestation of pregnancy | CPT/HCPCS: 81000 ==

== ENCOUNTER → 2023-02-15 07:55 | Outpatient (BNVA) | payer OTHER, MEDICAID, SELFPAY | PROVIDERS: PCP Nurse Practitioner Family; Visit Provider Obstetrics & Gynecology | DX: O09.899 Supervision of other high risk pregnancies, unspecified trimester (principal); E03.9 Hypothyroidism, unspecified; O26.892 Other specified pregnancy related conditions, second trimester; R12 Heartburn; Z30.2 Encounter for sterilization; F41.9 Anxiety disorder, unspecified; F32.A Depression, unspecified; Z36.2 Encounter for other antenatal screening follow-up; Z3A.32 32 weeks gestation of pregnancy | CPT/HCPCS: 81000; 84443 ==

== ENCOUNTER → 2023-03-01 10:09 | Outpatient (BNVA) | payer MEDICAID, SELFPAY | PROVIDERS: PCP Nurse Practitioner Family; Visit Provider Obstetrics & Gynecology | DX: O09.899 Supervision of other high risk pregnancies, unspecified trimester (principal); E03.9 Hypothyroidism, unspecified; O26.892 Other specified pregnancy related conditions, second trimester; R12 Heartburn; Z30.2 Encounter for sterilization; F41.9 Anxiety disorder, unspecified; F32.A Depression, unspecified; Z36.2 Encounter for other antenatal screening follow-up; Z3A.34 34 weeks gestation of pregnancy | CPT/HCPCS: 81000 ==

== ENCOUNTER → 2023-03-07 09:45 | Outpatient (BNVA) | payer MEDICAID, SELFPAY | PROVIDERS: PCP Nurse Practitioner Family; Visit Provider Obstetrics & Gynecology | DX: O09.899 Supervision of other high risk pregnancies, unspecified trimester (principal); Z3A.00 Weeks of gestation of pregnancy not specified | CPT/HCPCS: 84315; 87081 ==

== ENCOUNTER → 2023-03-28 11:49 | Day surgery (SDC) | payer OTHER, MEDICAID, SELFPAY | PROVIDERS: PCP Nurse Practitioner Family; Visit Provider Obstetrics & Gynecology | DX: O09.899 Supervision of other high risk pregnancies, unspecified trimester (principal); Z3A.00 Weeks of gestation of pregnancy not specified | CPT/HCPCS: 81000 ==

== ENCOUNTER 2023-03-29 09:55 | Inpatient (IN) | payer OTHER, MEDICAID, SELFPAY ==
--- NOTE | 2023-03-28 14:44 | ANES.PREANE2 ---
Pre-Anesthetic Assessment Height/Weight: Height 1.52 m Operation Date: 03/29/23 12:20 Proposed Procedures p Repeat section 42813, bilateral tubal 13846, O34.219,Z30.2(Not Applicable) - Jon Haynes MD Familial anesthetic complications: none Was Beta Sophia taken within 24 hours: N/A Was Clonidine taken within 24 hours: N/A Social No alcohol and No tobacco Exam alert, oriented x 3, clear to auscultation bilaterally and regular rate & rhythm Airway Submandibular: within normal limits Cervical ROM: within normal limits Mallampati: Class II Dentition: full CV/HEM Murmur (MVP) GI Gastroesophageal Reflux Disease Metabolic Thyroid Disease Neuropsych Anxiety and Depression Anesthetic Plan ASA status: 2 Anesthesia: Regional (specify below) (SAB) Medications/Allergies Home Medications Medication Instructions Recorded Confirmed Last Taken Type latanoprost 0.005 % eye drops 1 drp ophthalmic (eye) DAILY 07/19/21 03/28/23 Unknown History prenat.vits,charles,[id number] 1 tab PO DAILY 08/21/22 03/28/23 Unknown History fluoxetine 20 mg capsule 20 mg PO DAILY #90 caps 11/22/22 03/28/23 Unknown Rx famotidine 20 mg tablet (Pepcid) 20 mg PO BID #60 tabs 12/14/22 03/28/23 Unknown Rx levothyroxine 75 mcg tablet See Rx Instructions .Route 02/05/23 03/28/23 Unknown Rx .COMPLEX #30 tabs Allergies Allergy/AdvReac Type Severity Reaction Status Date / Time No Known Allergies Allergy Verified 03/28/23 10:54 [facility] Anesthesia Medical History Hypothyroidism Functional neurological symptom disorder with attacks or seizures PTSD pseudoseizures--evaluated by [facility]. Manages with communicative behavior. History of reactive attachment disorder Generalized anxiety disorder Major depressive disorder, recurrent, moderate Mitral valve prolapse Surgical History History of section (~08/2021) Primary elective section performed by Dr. Haynes H/O eye surgery lazy eye correction Family History Other Adopted Data Anesthesia Cardiac Studies: Echocardiogram 12/29/22 Holter Monitor 01/07/20
[2023-03-29] VITALS (11 sets, daily range): BP systolic 98–120; BP diastolic 48–73; PULSE 70–103; RESP 15–18; TEMP 36.4–36.8; O2SAT 99–100; BMI 34.7
--- NOTE | 2023-03-29 10:27 | PM.OPHPUD ---
Labor & Delivery H&P Update Date of Procedure: March 29, 2023 Date H&P Performed: 03/23/23 H&P update information: I have reviewed H&P completed within last 30 days, I have examined patient prior to procedure and No changes to prior documentation Admission Diagnosis: Planned procedure: Operation Date: 03/29/23 12:20 Proposed Procedures p Repeat section 74979, bilateral tubal 91171, O34.219,Z30.2(Not Applicable) - Jon Haynes MD
[2023-03-29 10:58] LABS: Basophils % 0.3 %; Eosinophils # 0.1 10^3/uL (0.0-0.8); Eosinophils % 0.5 %; Hematocrit 38.5 % (36-47); Lymphocytes # 1.7 10^3/uL (0.8-4.8); Lymphocytes % 14.5 %; Mean Corpuscular HGB Conc 34.3 g/dL (30-55); Mean Corpuscular Hemoglobin 31.5 pg (27-33); Mean Corpuscular Volume 91.9 fl (85-98); Mean Platelet Volume 10.3 fL (7.4-10.4); Monocytes # 0.7 10^3/uL (0.2-0.9); Monocytes % 6.3 %; Neutrophils # 9.21 10^3/uL (1.8-7.7); Neutrophils % 77.8 %; Nucleated Red Blood Cells % 0 %; Platelet Count 155 10^3/cmm (157-399); Red Blood Count 4.19 10^6/uL (3.85-5.65); Red Cell Distribution Width 13.7 % (12.1-15.1); White Blood Count 11.83 10^3/uL (3.29-11.43)
[2023-03-29] MEDS: lactated ringers 1,000 ML 999 ML IV (11:00)
[2023-03-29 11:28] LABS: Slide Review Slide Review Perform
[2023-03-29] MEDS: citric acid-sodium citrate 30 mL UDC PO (11:59)
[2023-03-29] MEDS: lactated ringers 1,000 ML 125 ML IV (12:00)
[2023-03-29] MEDS: famotidine 20 mg/2 mL INJ IVP (12:02)
[2023-03-29] MEDS: metoclopramide 5 mg/mL SDV 2 mL 10 MG IVP (12:02)
--- NOTE | 2023-03-29 13:17 | ANES.PAUD2 ---
Pre-Anesthetic Update Pre-Anesthetic Assessment: Date of Surgery/Procedure: 03/29/23 Proposed Procedure: Operation Date: 03/29/23 12:20 Proposed Procedures p Repeat section 50762, bilateral tubal 51988, O34.219,Z30.2(Not Applicable) - Jon Haynes MD Any changes to Pre-Anesthetic Assessment?: No Labs Last 48hrs: Short CBC 03/29/23 Range/Units 10:43 WBC 11.83 H (3.29-11.43) 10^ 3/uL Hgb 13.20 (11.27-16.99) g/ dL Hct 38.5 (36-47) % MCV 91.9 (85-98) fl Plt Count 155 L (157-399) 10^3/c mm Neut % (Auto) 77.8 % Neut # (Auto) 9.21 H (1.8-7.7) 10^3/u L Blood Bank 03/29/23 10:43 Blood Type Cancelled Rho(D) Type Cancelled Antibody Screen Cancelled Exam: Pre-Anes Outpt Exam: alert, oriented x 3, clear to auscultation bilaterally and regular rate & rhythm Cardiac Studies: Echocardiogram 12/29/22 Holter Monitor 01/07/20
--- NOTE | 2023-03-29 14:16 | PM.OP ---
Operative Report Date of procedure: March 29, 2023 Pre-op diagnosis: Term Previous delivery Desire permanent sterilization Post-op diagnosis: Same Procedure done: Repeat low-transverse delivery Bilateral salpingectomy. Specimens removed/disposition: Left and right fallopian tubes Surgeon: Jon Haynes MD Estimated blood loss (mL): 500 IV fluids (mL): 400 Complications: None Procedure: After assuring informed consent, the patient was taken to the operating room and anesthesia was initiated. She was placed in the dorsal supine position with a left lateral tilt. The abdomen was prepped and draped in the usual sterile manner. A time-out procedure was performed. Preop antibiotics was administered. A Pfannenstiel skin incision was made with the scalpel and carried through to the underlying layer of fascia with the Bovie. The fascia was nicked in the midline and the incision extended laterally with the De La Fuente scissors. The superior aspect of the fascial incision was then grasped with Jacob clamps and elevated and the underlying rectus muscle dissected off bluntly and sharp with de la fuente scissors dense adhesions. Attention was then turned to the inferior aspect of the incision which, in similar fashion, was grasped and tented up with Jacob clamps and the rectus muscle dissected bluntly. The rectus muscles were then in the midline and the peritoneum identified, tented up and entered sharply with Metzenbaum scissors. The peritoneal incision was then extended superiorly and inferiorly with good visualization of the bladder. The Cosme O retractor was then inserted and the vesicouterine peritoneum identified, grasped with pickups and entered sharply with Metzenbaum scissors. This incision was then extended laterally and the bladder flap created digitally. The uterus incised in a low transverse fashion with the scalpel. The uterine incision was then extended with the bandage scissors. The was then delivered in the cephalic presentation atraumatically with vacuum assist. The nose and the mouth were suctioned with bulb and the cord clamped and cut. The cord was normal and had three vessels. Amniotic fluid was clear. The placenta was then removed manually and the uterus exteriorized and cleared of all clots and debris. The uterine incision was repaired with 0 Vicryl in a running-locked fashion. A second layer of the same suture was used to obtain excellent hemostasis. The gutters were cleared of all clots. The left fallopian tube was identified and grasped with a Phyllis clamp. The tube was then followed out to the fimbria. The fallopian tube was grasped with Phyllis clamps. The tube was clamped, sealed and transected with the fine Voyant devie. The specimen was sent to pathology. Excellent hemostasis was noted. The same procedure was performed on the opposite fallopian tube. The uterus was then returned to the abdomen. The rectus muscles were approximated with 3-0 chromic gut. The subcutaneous adipose tissue was infiltrated with Exparel for pain management. The fascia was reapproximated with 0 Vicryl in an interrupted running fashion. The skin was closed with Insorb?s subcuticular absorbable jame. The patient tolerated the procedure well. The sponge, lap and needle counts were correct times three.
[2023-03-29] MEDS: diphenhydrAMINE 50 mg/mL SDV 1mL 25 MG IVP (14:32)
--- NOTE | 2023-03-29 15:47 | ANE.PACU2 ---
Inpatient post-anesthesia follow up: Airway intact: Yes Vital signs: Temperature Pulse Rate Respiratory Rate Blood Pressure Pulse Oximetry Oxygen Delivery Me thod Oxygen Flow Rate Fraction of Inspir ed Oxygen Hydration adequate: Yes Nausea and vomiting: No Pain level: 2 Mental status: Baseline
[2023-03-29] MEDS: docusate sodium 100 mg Capsule PO (19:42)
[2023-03-29] MEDS: ketorolac 30 mg/mL INJ IVP (19:42)
[2023-03-29] MEDS: dextrose 5%-lactated ringers 1,000 ML 125 ML IV (20:52)
--- NOTE | 2023-03-29 21:39 | PC.NURSE ---
This typewriter ribbon winder assisted pt to chair at approximately 1900. Pt tolerated well.
--- NOTE | 2023-03-29 22:06 | PC.NURSE ---
This typewriter assembly and parts inspector assisted pt 2 labs around the OB unit. Pt tolerated well with no complaints.
[2023-03-30 00:49] LABS: Mean Corpuscular HGB Conc 34.4 g/dL (30-55); Mean Corpuscular Hemoglobin 31.4 pg (27-33); Mean Corpuscular Volume 91.4 fl (85-98); Mean Platelet Volume 9.6 fL (7.4-10.4); Platelet Count 192 10^3/cmm (157-399); Red Cell Distribution Width 13.6 % (12.1-15.1); White Blood Count 12.89 10^3/uL (3.29-11.43)
[2023-03-30] MEDS: ketorolac 30 mg/mL INJ IVP (01:07)
[2023-03-30] MEDS: HYDROcodone-acetaminophen 5-325 mg Tablet PO ×3 (02:45→20:37)
[2023-03-30 05:01] VITALS: BP 105/58; PULSE 71; RESP 16
--- NOTE | 2023-03-30 06:00 | PC.NURSE ---
Pt reports passing flatus at this time and voiding since catheter removal.
[2023-03-30] MEDS: docusate sodium 100 mg Capsule PO ×2 (08:46→20:37)
[2023-03-30] MEDS: ibuprofen 800 mg tablet PO ×3 (08:46→20:37)
[2023-03-30] MEDS: prenatal vitamin Capsule 1 CAP PO (08:46)
--- NOTE | 2023-03-30 12:55 | P.PN_ITS ---
Subjective 2 Subjective: Mrs. Zamudio 22-year-old female G2, P2 status post repeat low-transverse delivery and bilateral salpingectomy. Refers feeling fine Vitals/I&O/Wt Last Vital Signs Temp 96.9 F L 03/31/23 10:20 Pulse 75 03/31/23 10:20 Resp 16 03/31/23 10:20 BP 112/77 03/31/23 10:20 Pulse Ox 100 03/29/23 14:05 O2 Del Method Room Air 03/31/23 10:20 03/30/23 03/31/23 03/31/23 22:59 06:59 14:59 Output Total 900 / 900 Balance -900 / -900 Physical Exam 2 Narrative: GA; alert and oriented x 3 HEENT: normal Breasts: engorged Nipples - skin intact Lungs; clear to auscultation Heart: regular rhythm, no murmurs. Abd: Appropriately tender. BS+. Uterine fundus below umbilicus. No Fundal Tenderness. Minimal tenderness, incision clean and dry, no redness, pain or edema. Perineum: normal lochia. Extremities: no edema, no cyanosis, no tenderness. Urinary Catheter Management: Flroes Latex: Cath Placed During This Visit: yes, but has since been removed by the nurse Reason for Continuing Indwelling Catheter: Decision to DC Catheter Urinary Catheter Date of Insertion: 03/29/23 Urinary Catheter Time of Insertion: 12:15 Date Urinary Catheter Removed: 03/30/23 Time Urinary Catheter Discontinued: 00:49 Data 03/30/23 00:43 A&P Assessment and plan (1) delivery, delivered, current hospitalization: Mrs. Zamudio 22-year-old female G2, P2 with Was post repeat low-transverse delivery and bilateral salpingectomy postoperative day 1. She is afebrile and hemodynamically stable. Tolerating diet well. Ambulating without difficulty. Plan Continue postop observation. Attestations 2 Medical Necessity Statement*: In my professional opinion poor admitting diagnosis Coding Level of Care Code Acute Code for Chg Fwd Diagnoses delivery, delivered, current hospitalization O82
[2023-03-30 17:00] VITALS: RESP 16; TEMP 36.6
[2023-03-31] MEDS: HYDROcodone-acetaminophen 5-325 mg Tablet PO ×2 (00:45→05:41)
[2023-03-31] MEDS: lanolin oint 7 gm 1 APPLIC TOPICAL (02:16)
[2023-03-31] MEDS: prenatal vitamin Capsule 1 CAP PO (10:14)
[2023-03-31] MEDS: docusate sodium 100 mg Capsule PO (10:14)
[2023-03-31] MEDS: ibuprofen 800 mg tablet PO (10:14)
[2023-03-31] MEDS: ferrous sulfate EC 325 mg Tablet PO (10:14)
[2023-03-31 10:20] VITALS: BP 112/77; PULSE 75; RESP 16; TEMP 36.1
--- NOTE | 2023-03-31 10:59 | P.DS_ITS ---
Discharge Providers CURTAIN CLEANER Date of Admission: 03/29/23 09:55 Date of Discharge: 03/31/23 Attending Provider at Admission: Jon Haynes MD Attending Provider at Discharge: Jon Haynes MD Primary Care Provider: Leelee Levy Diagnoses at Discharge Discharge Diagnosis (1) delivery, delivered, current hospitalization: Status: Acute Reason for Visit Reason for Visit: repeat C/S with tubal IUP Hospital Course Hospital Course Mrs. Zamudio 22-year-old female G3, P2 with estimated gestational age at 39 weeks with a history of previous delivery, desiring permanent sterilization. She was admitted for repeat delivery and bilateral salpingectomy. The procedures were performed without complication. Postoperative observation has been uneventful. She is afebrile and hemodynamically stable postoperative day 2. Ambulating without difficulty. Tolerating diet well. She was counseled regarding pelvic rest for 6 weeks (no sex, no tampons, no vaginal douches). Return to the emergency room if any fever, increased bleeding or pain. Information Peripartum Data: Delivery Method: Physical Exam Narrative: GA; alert and oriented x 3 HEENT: normal Breasts: engorged Nipples - skin intact Lungs; clear to auscultation Heart: regular rhythm, no murmurs. Abd: Appropriately tender. BS+. Uterine fundus below umbilicus. No Fundal Tenderness. Minimal tenderness, incision clean and dry, no redness, pain or edema. Perineum: normal lochia. Extremities: no edema, no cyanosis, no tenderness. Urinary Catheter Management: Flores Latex: Cath Placed During This Visit: yes, but has since been removed by the nurse Reason for Continuing Indwelling Catheter: Decision to DC Catheter Urinary Catheter Date of Insertion: 03/29/23 Urinary Catheter Time of Insertion: 12:15 Date Urinary Catheter Removed: 03/30/23 Time Urinary Catheter Discontinued: 00:49 History History History 3 Term 2 0 Miscarriages/Ectopic 1 Living Children 2 Discharge Data Studies Completed and Pending Pending at discharge Category Date Time Status Pathology: Surgical [PTH] Routine Pth 03/29/23 16:17 Received Laboratory Results WBC 12.89 10^3/uL (3.29-11.43) H 03/30/23 00:43 RBC 3.50 10^6/uL (3.85-5.65) L 03/30/23 00:43 Hgb 11.00 g/dL (11.27-16.99) L 03/30/23 00:43 Hct 32.0 % (36-47) L 03/30/23 00:43 MCV 91.4 fl (85-98) 03/30/23 00:43 MCH 31.4 pg (27-33) 03/30/23 00:43 MCHC 34.4 g/dL (30-55) 03/30/23 00:43 RDW 13.6 % (12.1-15.1) 03/30/23 00:43 Plt Count 192 10^3/cmm (157-399) 03/30/23 00:43 MPV 9.6 fL (7.4-10.4) 03/30/23 00:43 Neut % (Auto) 77.8 % 03/29/23 10:43 Lymph % (Auto) 14.5 % 03/29/23 10:43 [place] % (Auto) 6.3 % 03/29/23 10:43 Eos % (Auto) 0.5 % 03/29/23 10:43 Baso % (Auto) 0.3 % 03/29/23 10:43 Neut # (Auto) 9.21 10^3/uL (1.8-7.7) H 03/29/23 10:43 Lymph # (Auto) 1.7 10^3/uL (0.8-4.8) 03/29/23 10:43 [place] # (Auto) 0.7 10^3/uL (0.2-0.9) 03/29/23 10:43 Eos # (Auto) 0.1 10^3/uL (0.0-0.8) 03/29/23 10:43 Baso # (Auto) 0.0 10^3/uL (0.0-0.1) 03/29/23 10:43 Nucleated RBC % (auto) 0 % 03/29/23 10:43 Nucleated RBCs # 0.0 /100WBC 03/29/23 10:43 Blood Type O Positive 03/29/23 12:05 Rho(D) Type Rh positive 03/29/23 12:05 Antibody Screen Negative 03/29/23 12:05 Vitals Last Vital Signs Temp 96.9 F L 03/31/23 10:20 Pulse 75 03/31/23 10:20 Resp 16 03/31/23 10:20 BP 112/77 03/31/23 10:20 Pulse Ox 100 03/29/23 14:05 O2 Del Method Room Air 03/31/23 10:20 Results Labs OB ([facility]): Obstetrics US 12/18/22 Blood Type O Positive 03/29/23 Antibody Screen Negative 03/29/23 Hct 32.0 % (36-47) L 03/30/23 Hgb 11.00 g/dL (11.27-16.99) L 03/30/23 Rho(D) Type Rh positive 03/29/23 Plt Count 192 10^3/cmm (157-399) 03/30/23 Hep Bs Antigen Non-reactive (Nonreactive) 09/11/22 Hepatitis C Antibody Non-reactive (Nonreactive) 09/11/22 Rubella IgG Antibody 203.3 IU/mL (0.0-10.0) H 09/11/22 RPR Nonreactive (Nonreactive) 09/11/22 HIV 1&2 Ab & HIV 1 Ag Non-reactive (Non-Reactiv) 09/11/22 TSH 2.34 uIU/mL (0.27-4.20) 02/15/23 Free T4 1.04 ng/dL (0.82-1.77) 12/18/22 C.trachomatis RNA (TMA) Not detected (NOT DETECTED) N.gonorrhoeae RNA (TMA) Not detected (NOT DETECTED) T. vaginalis Amp RNA Not detected (NOT DETECTED) 10/05/22 Chlamydia/GC Comment See note 10/05/22 Cystic Fibrosis Screen Negative 09/11/22 Gest Glucose Tolerance 116 mg/dL (70-139) 12/14/22 Uric Acid 3.5 mg/dL (2.4-5.7) 07/09/21 Ser , Semi-Qnt 46275.00 mIU/mL 08/09/22 HCG, Qual Negative (Negative) 03/09/22 Urine Opiates Screen Negative ng/mL (Negative) 09/11/22 Ur Barbiturates Screen Negative ng/mL (Negative) 09/11/22 Ur Phencyclidine Scrn Negative ng/mL (Negative) 09/11/22 Ur Amphetamines Screen Negative ng/mL (Negative) 09/11/22 U Benzodiazepines Scrn Negative ng/mL (Negative) 09/11/22 Urine Cocaine Screen Negative ng/mL (Negative) 09/11/22 U Marijuana (THC) Screen Negative ng/mL (Negative) 09/11/22 Micro Urine Specimen 09/11/22 Pap Smear Interpret See note 09/27/21 Prolactin 16.07 ng/mL (4.8-23.3) 03/16/22 Discharge Plan Discharge Patient Disposition: Home Condition: Stable Prescriptions: New hydrocodone-acetaminophen 5-325 mg tablet 1 tab PO Q4H PRN (Reason: pain) Qty: 30 0RF acetaminophen 325 mg capsule 325 mg PO Q4H PRN (Reason: fever or pain) Qty: 60 0RF ibuprofen 800 mg tablet 800 mg PO TID PRN (Reason: pain) Qty: 60 0RF Continued latanoprost 0.005 % drops 1 drp ophthalmic (eye) DAILY prenat.vits,charles,[id number] Tablet 1 tab PO DAILY famotidine [Pepcid] 20 mg tablet 20 mg PO BID Qty: 60 3RF fluoxetine 20 mg capsule 20 mg PO DAILY Qty: 90 3RF levothyroxine 75 mcg tablet See Rx Instructions .ROUTE .COMPLEX Qty: 30 1RF Dose Instruction: TAKE 1 TABLET BY MOUTH EVERY DAY Rx Instructions: TAKE 1 TABLET BY MOUTH EVERY DAY Discharge Orders: Discharge Order (Routine); Ordered 03/31/23 Ordered By: Jon Haynes Referrals: Jon Haynes MD [Physician] - 2 weeks Discharge Diet: Usual diet Discharge Activity: Limit activity as instructed Patient Instructions: Depression (DC), Bleeding (DC), Preeclampsia and Eclampsia After Delivery (GEN), Hemorrhage (DC), OB [facility], OB Discharge Report, OB Food/Drug Interaction Guide, Opioid Safety, OB Home Care Activity Restrictions/Additional Instructions: 1. Please call [facility] clinic on next working day to make your post-operative appointment in 2 weeks. 2. Please stay home until you come back to the clinic on first post- hospatilization check up. 3. Please follow instructions on your medications CAREFULLY. 4. If you have abdominal incision, do not cover it unless dressing is necessary because of drainage. OK to shower, but avoid bath. Leave steri-strips until they fall off. If they are still on one week after surgery, you may remove them. 5. If you had vaginal surgery or vaginal repair, Dr. Haynes may instruct you to take SITZ bath. 6. Yellow, blood tinged odorous vaginal discharge is usually normal after hysterectomy or vaginal surgeries. 7. No SEXUAL INTERCOURSE, tampons, or douches until you are completely released from the post-operative care. 8. Avoid constipation by eating right and maybe using some Metamucil or Milk of Magnesia. 9. All prescription refills are given during the working hours. Please do no wait till it runs out. Call the clinic at [phone] before your medication runs out. The clinic will get in touch with your doctor to prescribe medications if necessary. 10. Please remain within 40 mile radius from our hospital because emergencies do happen now and then during the post-operative period. 11. If you have stairs at home, take one step at a time slowly and minimize the number of trips. It helps to stay in one floor for the next few days. No lifting except what you can lift by one hand until you are released from the post-operative care. 12. Driving is discouraged until you are well healed. It may be 3-4 weeks before you feel strong enough to drive. You should be able to turn and look through the rear window without pain and you should be able to push the brake pedal very hard without pain before you drive. No fast rules, but SAFETY should be your primary concern. DO NOT drive if you are on sedating medications such as narcotics. 13. Call the clinic (during working hours) to make urgent appointment or go to the Emergency room, if any of the following occurs: i. Vaginal bleeding becomes heavy, more than a period. ii. Incision becomes red and sore, or drains pus. iii. Your TEMPERATURE is over 100.4F or you have chill. iv. IV site becomes red and swollen (a little ``knot?? is usually OK) v. Persistent nausea and vomiting vi. Persistent constipation or diarrhea vii. Rash or allergic reaction to medications. Discharge Attestations CURTAIN CLEANER Time Spent in Discharge Care*: greater than 30 min Coding Level of Care Code Acute Code for Chg Fwd Diagnoses delivery, delivered, current hospitalization O82
[2023-03-31 12:47] VITALS: BP 112/77; PULSE 75; RESP 16; TEMP 36.1
== END 2023-03-31 12:40 | disposition home or self-care (01) | DRG 785 ==
PROVIDERS: Admitting Provider Obstetrics & Gynecology; PCP Nurse Practitioner Family; Visit Provider Obstetrics & Gynecology
PROC: 0UT70ZZ Resection of Bilateral Fallopian Tubes, Open Approach (ICD-10-PCS; CPT 59514; principal; 2023-03-29 12:00)
DX: O34.211 Maternal care for low transverse scar from previous cesarean delivery (principal); N85.8 Other specified noninflammatory disorders of uterus; Z3A.39 39 weeks gestation of pregnancy; Z37.0 Single live birth; Z30.2 Encounter for sterilization
CPT/HCPCS: 36415; 51702; 59025; 59409; 85025; 85027; 86850; 86900; 88302; 96374; J1200; J1885; J2274; J2371; J2405; J2765; J3010; J3490; J7030; J7120; J7121

== ENCOUNTER 2023-04-02 12:25 | Emergency (ER) | payer OTHER, MEDICAID, SELFPAY ==
--- NOTE | 2023-04-02 12:35 | ED_ITS ---
HPI - Abdominal Pain 2 General: Chief Complaint: Seizure Stated Complaint: seizures Time Seen by Provider: 04/02/23 12:29 Source: patient and EMS Mode of arrival: EMS Limitations: no limitations History of Present Illness: 22-year-old female states she had a C-se ction 4 days ago she states she been having some pain about her . States pain has been sharp in nature rates it a 7 out of 10. She has had no increased bleeding denies any vaginal bleeding she had no fever no vomiting diarrhea. Per EMS she had had a what appeared to be a pseudoseizure in the back of EMS does have history of pseudoseizures was not hypertensive no signs of preeclampsia. Associated Symptoms: Denies chills, diarrhea, fever(s), nausea and vomiting Review of Systems 2 Const: Denies: fever(s), chills, body aches or change in appetite ENMT: Denies: throat pain or dental pain Card: Denies: chest pain Resp: Denies: dyspnea GI: Reports: abdominal pain; Denies: nausea, vomiting or diarrhea Musc: Denies: neck pain or back pain Skin/Breast: Denies: rash Neuro: Reports: seizure-like activity; Denies: headache(s) PFSH ED 2 PFSH: Medical History Hypothyroidism Functional neurological symptom disorder with attacks or seizures PTSD pseudoseizures--evaluated by [facility]. Manages with communicative behavior. History of reactive attachment disorder Generalized anxiety disorder Major depressive disorder, recurrent, moderate Mitral valve prolapse Surgical History History of section (~08/2021) Primary elective section performed by Dr. Haynes H/O eye surgery lazy eye correction Family History Other Adopted Physical Exam 2 Const: COMMON NORMALS: no acute distress, patient oriented x3 and healthy appearing HENMT: COMMON NORMALS: normocephalic and atraumatic HEAD & SCALP: n ormocephalic and atraumatic Eye: COMMON NORMALS: conjunctivae normal CONJUNCTIVA: Yes conjunctivae normal Neck/C-Spine: COMMON NORMALS: full ROM and supple Chest: COMMONS NORMALS: normal inspection of the chest and normal palpation of entire chest wall Resp: COMMON NORMALS: normal respiratory effort, No retractions, No use of accessory muscles and clear to auscultation bilaterally AUSCULTATION: clear to auscultation bilaterally Cardio: COMMON NORMALS: regular rate, regular rhythm and No murmurs present (Cardio) RATE: regular rate RHYTHM: regular rhythm GI: COMMON NORMALS: Normal to inspection, nondistended, normoactive bowel sounds present, Soft to palpation, non-tender and no masses PALPATION: Yes Soft to palpation OTHER: c section incision c/d/i Extremity: COMMON NORMALS: normal to inspection and full ROM Neuro: COMMON NORMALS: patient oriented x3, moves all extremities and no focal motor deficits Psych: COMMON NORMALS: mental status grossly normal, Normal thought process present and cooperative THOUGHT PROCESS: Normal thought process present Skin: COMMON NORMALS: no rashes or lesions noted and no wounds GENERAL SKIN EXAM: no rashes or lesions noted Course 2 Vital Signs: Vital signs: Vital Signs Temperature 98.2 F 04/02/23 12:36 Pulse Rate 58 L 04/02/23 12:36 Respiratory Rate 18 04/02/23 12:36 Blood Pressure 125/94 04/02/23 12:36 Pulse Oximetry 99 04/02/23 12:36 Oxygen Delivery Me thod Room Air 04/02/23 12:36 MDM - Abdominal Pain Medical Decision Making Patient presents with lower abdominal pain patient's well-appearing here her exam is benign incisions clean dry and intact no signs of any postoperative complications or surgical abdomen blood work including white count is normal she is stable for discharge prescribe her nausea medicine along with pain medicine she is to follow-up with her OB and return if worsening. Medical Records I reviewed the patient's medical records. Lab Data I reviewed the patient's lab results. 04/02/23 12:45 04/02/23 12:45 Labs/Radiology: Laboratory Results WBC 9.30 10^3/uL (3.29-11.43) 04/02/23 12:45 RBC 3.88 10^6/uL (3.85-5.65) 04/02/23 12:45 Hgb 12.20 g/dL (11.27-16.99) 04/02/23 12:45 Hct 35.4 % (36-47) L 04/02/23 12:45 MCV 91.2 fl (85-98) 04/02/23 12:45 MCH 31.4 pg (27-33) 04/02/23 12:45 MCHC 34.5 g/dL (30-55) 04/02/23 12:45 RDW 13.1 % (12.1-15.1) 04/02/23 12:45 Plt Count 299 10^3/cmm (157-399) 04/02/23 12:45 MPV 9.4 fL (7.4-10.4) 04/02/23 12:45 Neut % (Auto) 69.6 % 04/02/23 12:45 Lymph % (Auto) 21.1 % 04/02/23 12:45 [place] % (Auto) 4.7 % 04/02/23 12:45 Eos % (Auto) 4.0 % 04/02/23 12:45 Baso % (Auto) 0.3 % 04/02/23 12:45 Neut # (Auto) 6.47 10^3/uL (1.8-7.7) 04/02/23 12:45 Lymph # (Auto) 2.0 10^3/uL (0.8-4.8) 04/02/23 12:45 [place] # (Auto) 0.4 10^3/uL (0.2-0.9) 04/02/23 12:45 Eos # (Auto) 0.4 10^3/uL (0.0-0.8) 04/02/23 12:45 Baso # (Auto) 0.0 10^3/uL (0.0-0.1) 04/02/23 12:45 Nucleated RBC % (auto) 0 % 04/02/23 12:45 Nucleated RBCs # 0.0 /100WBC 04/02/23 12:45 Sodium 140 mmol/L (136-145) 04/02/23 12:45 Potassium 3.8 mmol/L (3.5-5.1) 04/02/23 12:45 Chloride 107 mmol/L (98-107) 04/02/23 12:45 Carbon Dioxide 20 mmol/L (22-29) L 04/02/23 12:45 Anion Gap 16.8 (5-19) 04/02/23 12:45 BUN 7 mg/dL (6-20) 04/02/23 12:45 Creatinine 0.5 mg/dL (0.5-0.9) 04/02/23 12:45 GFR Calculation 154.3 mL/min (90-130) H 04/02/23 12:45 Glucose 93 mg/dL (65-115) 04/02/23 12:45 Calculated Osmolality 288 mOsm/kg (285-295) 04/02/23 12:45 Calcium 9.0 mg/dL (8.5-10.5) 04/02/23 12:45 Total Bilirubin 0.3 mg/dL (0.15-1.2) 04/02/23 12:45 AST 20 U/L (0-32) 04/02/23 12:45 ALT 12 U/L (0-33) 04/02/23 12:45 Alkaline Phosphatase 123 U/L (35-105) H 04/02/23 12:45 Total Protein 6.6 g/dL (6.6-8.7) 04/02/23 12:45 Albumin 3.4 g/dL (3.5-5.2) L 04/02/23 12:45 Globulin 3.2 g/dL (1.3-4.6) 04/02/23 12:45 Lipase 16 U/L (13-60) 04/02/23 12:45 Urine Color Yellow (Yellow) 04/02/23 13:30 Urine Appearance Clear (CLEAR) 04/02/23 13:30 Urine pH 8 (5-7) H 04/02/23 13:30 Ur Specific [place] 1.005 (1.005-1.030) 04/02/23 13:30 Urine Protein Neg (Negative) 04/02/23 13:30 Urine Glucose (UA) Norm (Normal) 04/02/23 13:30 Urine Ketones Negative (Negative) 04/02/23 13:30 Urine Blood 3+ (Negative) H 04/02/23 13:30 Urine Nitrate Negative (Negative) 04/02/23 13:30 Urine Bilirubin Neg (Negative) 04/02/23 13:30 Prot Sulfosalicylic Acd Negative (Negative) 04/02/23 13:30 Urine Urobilinogen Neg mg/dL (Negative) 04/02/23 13:30 Ur Leukocyte Esterase 1+ (Negative) H 04/02/23 13:30 Urine RBC 15-25 /hpf (0-2) H 04/02/23 13:30 Urine WBC 5-10 /hpf (0-5) H 04/02/23 13:30 Ur Squamous Epith Cells 0-4 /hpf (0-5) H 04/02/23 13:30 Amorphous Sediment Not Reportable 04/02/23 13:30 Urine Bacteria Trace /hpf (NONE) 04/02/23 13:30 No radiology studies performed this visit Discharge Plan Discharge Patient Disposition: Home Clinical Impression: Abdominal pain Qualifiers: Abdominal location: generalized Qualified Code(s): R10.84 - Generalized abdominal pain Condition: Stable Prescriptions: New hydrocodone-acetaminophen 5-325 mg tablet 1 tab PO Q6H PRN (Reason: pain) Qty: 14 0RF ondansetron 4 mg tablet,disintegrating 4 mg PO Q6H PRN (Reason: nausea and vomiting) Qty: 14 0RF No Action famotidine [Pepcid] 20 mg tablet 20 mg PO BID Qty: 60 3RF fluoxetine 20 mg capsule 20 mg PO DAILY Qty: 90 3RF ibuprofen 800 mg tablet 800 mg PO TID PRN (Reason: pain) Qty: 60 0RF hydrocodone-acetaminophen 5-325 mg tablet 1 tab PO Q4H PRN (Reason: pain) Qty: 30 0RF acetaminophen 325 mg capsule 325 mg PO Q4H PRN (Reason: fever or pain) Qty: 60 0RF Multivitamins 28 mg iron- 800 mcg Tablet 1 tab PO DAILY Discharge Orders: Discharge ED (Routine); Ordered 04/02/23 Ordered By: Jay Souza Referrals: Jon Haynes MD [Physician] - 4-7 days Leelee Levy FNP [Primary Care Provider] - Discharge Diet: Advance as tolerated Discharge Activity: Resume usual activity Patient Instructions: Abdominal Pain (ED), Opioid Safety, Pain Management Coding Level of Care Code ED Quality Review Specialist for Pradeep Yañez
[2023-04-02 12:36] VITALS: BP 125/94; PULSE 58; RESP 18; TEMP 36.8; O2SAT 99
[2023-04-02] MEDS: ondansetron 2 mg/ML SDV 2 mL 4 MG IVP (12:54)
[2023-04-02] MEDS: morphine 4 mg/mL SDV 1 mL IVP (12:54)
[2023-04-02 13:08] LABS: Basophils % 0.3 %; Eosinophils # 0.4 10^3/uL (0.0-0.8); Hematocrit 35.4 % (36-47); Lymphocytes % 21.1 %; Mean Corpuscular HGB Conc 34.5 g/dL (30-55); Mean Corpuscular Hemoglobin 31.4 pg (27-33); Mean Corpuscular Volume 91.2 fl (85-98); Mean Platelet Volume 9.4 fL (7.4-10.4); Monocytes # 0.4 10^3/uL (0.2-0.9); Monocytes % 4.7 %; Neutrophils # 6.47 10^3/uL (1.8-7.7); Neutrophils % 69.6 %; Nucleated Red Blood Cells % 0 %; Platelet Count 299 10^3/cmm (157-399); Red Blood Count 3.88 10^6/uL (3.85-5.65); Red Cell Distribution Width 13.1 % (12.1-15.1)
--- NOTE | 2023-04-02 13:16 | PC.PHAR ---
pt states she takes care of her own medications-pt states she hasnt taken her levothyroxine 75mcg daily in months ext shows last filled 03/06/23 30d/s-
[2023-04-02 13:18] LABS: Alanine Aminotransferase 12 U/L (0-33); Albumin Level 3.4 g/dL (3.5-5.2); Alkaline Phosphatase 123 U/L (35-105); Anion Gap 16.8 (5-19); Aspartate Amino Transferase 20 U/L (0-32); Blood Urea Nitrogen 7 mg/dL (6-20); Carbon Dioxide 20 mmol/L (22-29); Chloride 107 mmol/L (98-107); Globulin 3.2 g/dL (1.3-4.6); Glomerular Filtration Rate 154.3 mL/min (90-130); Glucose 93 mg/dL (65-115); Lipase 16 U/L (13-60); Osmolality Calculated 288 mOsm/kg (285-295); Potassium 3.8 mmol/L (3.5-5.1); Sodium 140 mmol/L (136-145); Total Bilirubin 0.3 mg/dL (0.15-1.2); Total Protein 6.6 g/dL (6.6-8.7)
[2023-04-02 13:56] LABS: Add Urine Culture? Yes; Add Urine Microscopic? YES; Bacteria Urine TRACE /hpf; Bilirubin Urine Neg (Negative); Blood Urine 3+ (Negative); Glucose Urine UA Norm (Normal); Ketones Urine Negative (Negative); Leukocyte Esterase Urine 1+ (Negative); Nitrate Urine Negative (Negative); Protein Urine Neg (Negative); RBC Urine 15-25 /hpf (0-2); Specific Gravity, Urine 1.005 (1.005-1.030); Squamous Epithelial Cell Urine 0-4 /hpf (0-5); Sulfosalicylic Acid Urine Negative (Negative); Urine Appearance Clear (CLEAR); Urine Color Yellow (Yellow); Urobilinogen Urine Neg (Negative); pH Urine 8 (5-7)
== END 2023-04-02 14:24 | disposition home or self-care (01) ==
PROVIDERS: Emergency Provider Emergency Medicine; PCP Nurse Practitioner Family
DX: R10.84 Generalized abdominal pain (principal)
CPT/HCPCS: 36415; 80053; 81001; 83690; 85025; 87086; 96374; 96375; 99284; J2270; J2405

== ENCOUNTER 2023-04-06 11:35 | Emergency (ER) | payer OTHER, MEDICAID, SELFPAY ==
[2023-04-06 12:08] VITALS: BP 107/71; PULSE 75; RESP 16; TEMP 37.1; O2SAT 97
[2023-04-06 12:50] LABS: Basophils % 0.3 %; Eosinophils # 0.2 10^3/uL (0.0-0.8); Hematocrit 38.3 % (36-47); Lymphocytes # 1.2 10^3/uL (0.8-4.8); Lymphocytes % 15.6 %; Mean Corpuscular HGB Conc 33.2 g/dL (30-55); Mean Corpuscular Volume 93.4 fl (85-98); Mean Platelet Volume 8.9 fL (7.4-10.4); Monocytes # 0.7 10^3/uL (0.2-0.9); Monocytes % 8.6 %; Neutrophils # 5.74 10^3/uL (1.8-7.7); Neutrophils % 73.2 %; Nucleated Red Blood Cells % 0 %; Platelet Count 309 10^3/cmm (157-399); Red Cell Distribution Width 12.9 % (12.1-15.1); White Blood Count 7.83 10^3/uL (3.29-11.43)
[2023-04-06 13:12] LABS: Alanine Aminotransferase 15 U/L (0-33); Albumin Level 3.5 g/dL (3.5-5.2); Alkaline Phosphatase 110 U/L (35-105); Anion Gap 14.6 (5-19); Aspartate Amino Transferase 20 U/L (0-32); Blood Urea Nitrogen 8 mg/dL (6-20); Calcium 8.5 mg/dL (8.5-10.5); Carbon Dioxide 25 mmol/L (22-29); Chloride 103 mmol/L (98-107); Globulin 3.4 g/dL (1.3-4.6); Glucose 72 mg/dL (65-115); Lipase 18 U/L (13-60); Osmolality Calculated 285 mOsm/kg (285-295); Potassium 3.6 mmol/L (3.5-5.1); Sodium 139 mmol/L (136-145); Total Bilirubin 0.4 mg/dL (0.15-1.2); Total Protein 6.9 g/dL (6.6-8.7)
[2023-04-06 13:18] LABS: Procalcitonin 0.13 ng/mL (0-0.5)
== END 2023-04-06 14:14 | disposition left against medical advice (07) ==
PROVIDERS: Internal Medicine; Physician Assistant; Emergency Provider Family Medicine; PCP Nurse Practitioner Family
DX: Z53.21 Procedure and treatment not carried out due to patient leaving prior to being seen by health care provider (principal)
CPT/HCPCS: 80053; 83605; 83690; 84145; 85025

== ENCOUNTER 2023-04-07 21:42 | Inpatient (IN) | payer OTHER, MEDICAID, SELFPAY ==
[2023-04-07 21:52] VITALS: BP 119/73; PULSE 101; RESP 18; TEMP 37.7; O2SAT 98; BMI 31.8
--- NOTE | 2023-04-07 22:32 | CTR_ITS ---
PROCEDURE INFORMATION: Exam: CT Abdomen And Pelvis With Contrast Exam date and time: 04/07/2023 11:16 PM Age: 22 years old Clinical indication: Fever and nausea; Abdominal pain; Localized; Prior surgery; Surgery date: <1 month; Surgery type: Csection 03/29/2023; Patient HX: Lower abd pain with nausea and fever; Additional info: Abd pain fever HX of recent c section TECHNIQUE: Imaging protocol: Computed tomography of the abdomen and pelvis with contrast. Radiation optimization: All CT scans at this facility use at least one of these dose optimization techniques: automated exposure control; mA and/or kV adjustment per patient size (includes targeted exams where dose is matched to clinical indication); or iterative reconstruction. Contrast material: OMNI 350; Contrast volume: 100 ml; Contrast route: INTRAVENOUS (IV); COMPARISON: [place] [id number] 12/18/2022 8:47 AM RADIATION DOSE METRICS: Total DLP (mGy-cm): 636.83 FINDINGS: Lungs: The lung bases are clear. Liver: Normal. No mass. Gallbladder and bile ducts: Normal. No calcified stones. No ductal dilation. Pancreas: Normal. No ductal dilation. Spleen: Normal. No splenomegaly. Adrenal glands: Normal. No mass. Kidneys and ureters: 2 mm nonobstructing calculus in the left kidney. There is slight symmetric dilatation of the renal collecting systems. No perinephric stranding. No hydroureter . Stomach and bowel: Moderate rectosigmoid stool. No mechanical obstruction. Appendix: No evidence of appendicitis. Intraperitoneal space: See Soft tissues finding. Vasculature: Unremarkable. No abdominal aortic aneurysm. Lymph nodes: Unremarkable. No enlarged lymph nodes. Urinary bladder: The urinary bladder is enlarged up to 13.7 cm. Reproductive: The uterus is enlarged up to 14 cm in length consistent with recent . The endometrium measures up to 2 cm which is of indeterminate significance. Incidental postop changes from section. No evidence of surgical complication. Bones/joints: Unremarkable. No acute fracture. Soft tissues: 5.5 cm umbilical hernia has a broad aperture. Omentum and bowel bulges into the hernia but is not entrapped or inflamed. CT/CT abdomen pelvis w con* [id number] IMPRESSION: 1. Thickened endometrium/fluid up to 2 cm. Although this could be incidental, in the setting of fever consider further evaluation with ultrasound if there is clinical concern for endometritis. 2. Distended urinary bladder with mild reflux. 3. Other incidental findings as described.
[2023-04-07 23:14] LABS: Basophils % 0.1 %; Eosinophils # 0.1 10^3/uL (0.0-0.8); Eosinophils % 0.5 %; Hematocrit 37.8 % (36-47); Lymphocytes # 0.9 10^3/uL (0.8-4.8); Lymphocytes % 6.5 %; Mean Corpuscular HGB Conc 34.1 g/dL (30-55); Mean Corpuscular Hemoglobin 31.2 pg (27-33); Mean Corpuscular Volume 91.3 fl (85-98); Mean Platelet Volume 8.7 fL (7.4-10.4); Monocytes # 0.8 10^3/uL (0.2-0.9); Monocytes % 5.6 %; Neutrophils # 11.85 10^3/uL (1.8-7.7); Nucleated Red Blood Cells % 0 %; Platelet Count 351 10^3/cmm (157-399); Red Blood Count 4.14 10^6/uL (3.85-5.65); Red Cell Distribution Width 12.8 % (12.1-15.1); White Blood Count 13.63 10^3/uL (3.29-11.43)
[2023-04-07] MEDS: iohexol 350 mg/mL 500 mL Btl (per mL) IV (23:26)
--- NOTE | 2023-04-07 23:27 | PC.NURSE ---
Versed was ordered on patient to complete CT scan. At time of scan, patient did not require medication to finish scan. Sised was returned to [facility], witnessed by Sandra Thorpe RN.
[2023-04-07 23:31] LABS: Alanine Aminotransferase 10 U/L (0-33); Albumin Level 3.6 g/dL (3.5-5.2); Alkaline Phosphatase 108 U/L (35-105); Aspartate Amino Transferase 22 U/L (0-32); Blood Urea Nitrogen 9 mg/dL (6-20); C Reactive Protein 28.7 mg/L (0.0-4.9); Calcium 8.5 mg/dL (8.5-10.5); Carbon Dioxide 20 mmol/L (22-29); Chloride 101 mmol/L (98-107); Globulin 3.1 g/dL (1.3-4.6); Glucose 113 mg/dL (65-115); Osmolality Calculated 279 mOsm/kg (285-295); Sodium 135 mmol/L (136-145); Total Bilirubin 0.5 mg/dL (0.15-1.2); Total Protein 6.7 g/dL (6.6-8.7)
[2023-04-07 23:32] VITALS: BP 140/69; PULSE 80; O2SAT 96
[2023-04-07 23:32] LABS: Lactic Sepsis W/Reflex 0.9 mmol/L (0.5-2.2)
[2023-04-08] VITALS (8 sets, daily range): BP systolic 107–120; BP diastolic 67–81; PULSE 94–115; RESP 16; TEMP 37.1–39.3; O2SAT 95–96; BMI 31.8
--- NOTE | 2023-04-08 | USR_ITS ---
PROCEDURE INFORMATION: Exam: US Pelvis, Transvaginal Exam date and time: 04/08/2023 12:44 AM Age: 22 years old Clinical indication: Pelvic pain; Prior surgery; Surgery date: <1 month; Surgery type: C section; Additional info: Abd pain fever post c section. ? Endometritis TECHNIQUE: Imaging protocol: Real-time transvaginal pelvic ultrasound with image documentation. Transvaginal imaging was used for better evaluation of the endometrium, adnexa, and/or cervix. COMPARISON: US OB transvaginal [id number] 08/18/2022 10:21 AM FINDINGS: Uterus: The endometrium measures about 1.7-1.9 cm thick. Cervix: Mild endocervical canal fluid. Right ovary/adnexa: Not seen. Left ovary/adnexa: Not seen. Intraperitoneal space: No significant free fluid. US/US transvaginal [id number] IMPRESSION: 1. Thickened endometrium with endocervical canal fluid. Given its lack of vascularity, this is probably due to postop blood products or physiologic causes. Given lack of vascularity, this makes endometritis or retained POC less likely. 2. Advise short-term follow-up. The exam was terminated early due to patient pain and discomfort.
[2023-04-08 00:10] LABS: Add Urine Microscopic? YES
[2023-04-08 00:12] LABS: Amorphous Sediment Urine 1+ /hpf; Bacteria Urine 1+ /hpf; Bilirubin Urine Neg (Negative); Blood Urine Neg (Negative); Glucose Urine UA Norm (Normal); Hyaline Casts Urine 0-4 /lpf; Ketones Urine 1+ (Negative); Leukocyte Esterase Urine 2+ (Negative); Nitrate Urine Negative (Negative); Protein Urine Neg (Negative); RBC Urine 0-4 /hpf (0-2); Squamous Epithelial Cell Urine 0-4 /hpf (0-5); Sulfosalicylic Acid Urine Negative (Negative); Urine Appearance Hazy (CLEAR); Urine Color Yellow (Yellow); Urobilinogen Urine Norm (Negative); WBC Urine 15-25 /hpf (0-5); pH Urine 9 (5-7)
[2023-04-08] MEDS: midazolam 1 mg/mL INJ 2 mL 3 MG IM (00:40)
--- NOTE | 2023-04-08 00:43 | PC.NURSE ---
Versed administered per Dr Padron's verbal order to help patient relax for ultrasound. Wasted left over Versed with prefabricated houses trimmer, Aniya OSORIO.
[2023-04-08] MEDS: piperacillin-tazobactam 3.375 GM in sodium chloride 0.9% (plus) 50 ML IV (01:30)
--- NOTE | 2023-04-08 01:38 | W.ED.ABDPA2 ---
HPI - Abdominal Pain General: Chief Complaint: Abdominal Pain Stated Complaint: fever sever pain recent c.sec dizzy pain Time Seen by Provider: 04/07/23 22:21 History of Present Illness: 22-year-old female who had a on 03/29. She presents with fever of 102.5 at home, pelvic pain, and continued vaginal bleeding. She has some dizziness as well. She was here yesterday, but went home after waiting in the waiting room for quite some time. She evidently had labs drawn at that time. Her pain and bleeding continued this evening, so she returns. Fever was higher as well. She was told by the on-call welt rander to come in for evaluation. Associated Symptoms: Reports chills, fever(s) and nausea; Denies dysuria Review of Systems Const: Reports: fever(s), chills and body aches Eyes: Denies: change in vision ENMT: Denies: throat pain Card: Denies: chest pain Resp: Denies: dyspnea GI: Reports: abdominal pain and nausea : Reports: vaginal bleeding and pelvic pain; Denies: dysuria or vaginal discharge Musc: Reports: back pain Skin/Breast: Denies: rash Neuro: Reports: headache(s) Psych: Reports: anxiety PFSH ED PFSH: Medical History Hypothyroidism Functional neurological symptom disorder with attacks or seizures PTSD pseudoseizures--evaluated by [facility] Neurology. Manages with communicative behavior. History of reactive attachment disorder Generalized anxiety disorder Major depressive disorder, recurrent, moderate Mitral valve prolapse Surgical History History of section (~08/2021) Primary elective section performed by Dr. Haynes H/O eye surgery [facility] eye correction Family History Other Adopted Physical Exam Const: GENERAL APPEARANCE: cooperative, anxious and ill appearing; not frail appearing HENMT: COMMON NORMALS: normocephalic, atraumatic and Normal external nose present HEAD & SCALP: normocephalic and atraumatic FACE & SINUS: normal facial exam and face symmetric NOSE: Normal external nose present Eye: COMMON NORMALS: Equal, round and reactive pupils present and EOMs intact bilaterally PUPIL: Yes Equal, round and reactive pupils present Neck/C-Spine: GENERAL: Yes trachea midline Chest: CHEST: Yes Symmetrical chest wall rise Resp: COMMON NORMALS: normal respiratory effort, No retractions, No use of accessory muscles and clear to auscultation bilaterally AUSCULTATION: clear to auscultation bilaterally Cardio: COMMON NORMALS: regular rate and regular rhythm RATE: regular rate RHYTHM: regular rhythm GI: COMMON NORMALS: Normal to inspection, nondistended, normoactive bowel sounds present PALPATION: Yes Tenderness to palpation present (GI) (diffuse lower) Extremity: COMMON NORMALS: no pedal edema Neuro: JAIRO COMA SCALE: document GCS findings Jairo coma scale eye opening: Spontaneous [place] coma scale verbal response: Orientated [place] coma scale motor response: Obey commands Jairo coma scale total score: 15 SENSORY EXAM: Yes extremities (intact) Psych: COMMON NORMALS: speech normal SPEECH: Yes normal speech Skin: COMMON NORMALS: no rashes or lesions noted GENERAL SKIN EXAM: no rashes or lesions noted Course Vital Signs: Vital signs: Vital Signs Temperature 99.9 F H 04/07/23 21:52 Pulse Rate 80 04/07/23 23:32 Respiratory Rate 18 04/07/23 21:52 Blood Pressure 140/69 04/07/23 23:32 Pulse Oximetry 96 04/07/23 23:32 Oxygen Delivery Me thod Room Air 04/07/23 23:32 MDM - Abdominal Pain Medical Decision Making 22-year-old female here with fever and pelvic pain post . Her white blood cell count is 13.6. Hemoglobin is stable at 12.9. BMP is normal. Lactic acid is 0.9. CRP is only 29. She has a 2+ leukocyte esterase urine with whites present. CT shows a thickened endometrium up to 2 cm. Pelvic ultrasound shows send can endometrium with endocervical canal fluid. However, lacks vascularity which is somewhat less concerning for endometritis. Spoke with gynecology. He is going to come by and see the patient in the emergency department. In the meantime she is covered with IV Zosyn Spoke with gynecology again. She will be admitted. Lab Data 04/07/23 23:05 04/07/23 23:05 Labs/Radiology: Radiology Impressions Abdomen/Pelvis CT 04/07/23 22:32 IMPRESSION: 1. Thickened endometrium/fluid up to 2 cm. Although this could be incidental, in the setting of fever consider further evaluation with ultrasound if there is clinical concern for endometritis. 2. Distended urinary bladder with mild reflux. 3. Other incidental findings as described. Transvaginal US 04/08/23 00:00 IMPRESSION: 1. Thickened endometrium with endocervical canal fluid. Given its lack of vascularity, this is probably due to postop blood products or physiologic causes. Given lack of vascularity, this makes endometritis or retained POC less likely. 2. Advise short-term follow-up. The exam was terminated early due to patient pain and discomfort. Laboratory Results WBC 13.63 10^3/uL (3.29-11.43) H 04/07/23 23:05 RBC 4.14 10^6/uL (3.85-5.65) 04/07/23 23:05 Hgb 12.90 g/dL (11.27-16.99) 04/07/23 23:05 Hct 37.8 % (36-47) 04/07/23 23:05 MCV 91.3 fl (85-98) 04/07/23 23:05 MCH 31.2 pg (27-33) 04/07/23 23:05 MCHC 34.1 g/dL (30-55) 04/07/23 23:05 RDW 12.8 % (12.1-15.1) 04/07/23 23:05 Plt Count 351 10^3/cmm (157-399) 04/07/23 23:05 MPV 8.7 fL (7.4-10.4) 04/07/23 23:05 Neut % (Auto) 87.0 % 04/07/23 23:05 Lymph % (Auto) 6.5 % 04/07/23 23:05 [place] % (Auto) 5.6 % 04/07/23 23:05 Eos % (Auto) 0.5 % 04/07/23 23:05 Baso % (Auto) 0.1 % 04/07/23 23:05 Neut # (Auto) 11.85 10^3/uL (1.8-7.7) H 04/07/23 23:05 Lymph # (Auto) 0.9 10^3/uL (0.8-4.8) 04/07/23 23:05 [place] # (Auto) 0.8 10^3/uL (0.2-0.9) 04/07/23 23:05 Eos # (Auto) 0.1 10^3/uL (0.0-0.8) 04/07/23 23:05 Baso # (Auto) 0.0 10^3/uL (0.0-0.1) 04/07/23 23:05 Nucleated RBC % (auto) 0 % 04/07/23 23:05 Nucleated RBCs # 0.0 /100WBC 04/07/23 23:05 Sodium 135 mmol/L (136-145) L 04/07/23 23:05 Potassium 4.0 mmol/L (3.5-5.1) 04/07/23 23:05 Chloride 101 mmol/L (98-107) 04/07/23 23:05 Carbon Dioxide 20 mmol/L (22-29) L 04/07/23 23:05 Anion Gap 18.0 (5-19) 04/07/23 23:05 BUN 9 mg/dL (6-20) 04/07/23 23:05 Creatinine 0.6 mg/dL (0.5-0.9) 04/07/23 23:05 GFR Calculation 125.0 mL/min (90-130) 04/07/23 23:05 Glucose 113 mg/dL (65-115) 04/07/23 23:05 Calculated Osmolality 279 mOsm/kg (285-295) L 04/07/23 23:05 Lactic Acid 0.9 mmol/L (0.5-2.2) 04/07/23 23:05 Calcium 8.5 mg/dL (8.5-10.5) 04/07/23 23:05 Total Bilirubin 0.5 mg/dL (0.15-1.2) 04/07/23 23:05 AST 22 U/L (0-32) 04/07/23 23:05 ALT 10 U/L (0-33) 04/07/23 23:05 Alkaline Phosphatase 108 U/L (35-105) H 04/07/23 23:05 C-Reactive Protein 28.7 mg/L (0.0-4.9) H 04/07/23 23:05 Total Protein 6.7 g/dL (6.6-8.7) 04/07/23 23:05 Albumin 3.6 g/dL (3.5-5.2) 04/07/23 23:05 Globulin 3.1 g/dL (1.3-4.6) 04/07/23 23:05 Urine Color Yellow (Yellow) 04/08/23 00:02 Urine Appearance Hazy (CLEAR) A 04/08/23 00:02 Urine pH 9 (5-7) H 04/08/23 00:02 Ur Specific [place] 1.010 (1.005-1.030) 04/08/23 00:02 Urine Protein Neg (Negative) 04/08/23 00:02 Urine Glucose (UA) Norm (Normal) 04/08/23 00:02 Urine Ketones 1+ (Negative) H 04/08/23 00:02 Urine Blood Neg (Negative) 04/08/23 00:02 Urine Nitrate Negative (Negative) 04/08/23 00:02 Urine Bilirubin Neg (Negative) 04/08/23 00:02 Prot Sulfosalicylic Acd Negative (Negative) 04/08/23 00:02 Urine Urobilinogen Norm mg/dL (Negative) 04/08/23 00:02 Ur Leukocyte Esterase 2+ (Negative) H 04/08/23 00:02 Urine RBC 0-4 /hpf (0-2) H 04/08/23 00:02 Urine WBC 15-25 /hpf (0-5) H 04/08/23 00:02 Ur Squamous Epith Cells 0-4 /hpf (0-5) H 04/08/23 00:02 Amorphous Sediment 1+ /hpf 04/08/23 00:02 Urine Bacteria 1+ /hpf (NONE) H 04/08/23 00:02 Hyaline Casts 0-4 /lpf H 04/08/23 00:02 All radiology interpretation(s) finalized by discharge Discharge Plan Discharge Patient Disposition: Admitted As Inpatient Clinical Impression: Acute endometritis Abdominal pain Qualifiers: Abdominal location: generalized Qualified Code(s): R10.84 - Generalized abdominal pain Condition: Stable Coding Level of Care Code ED Hosiery Bagger for Pradeep Yañez
[2023-04-08] MEDS: sodium chloride 0.9% 1,000 ML 999 ML IV (02:04)
[2023-04-08] MEDS: ampicillin-sulbactam 3 GM in sodium chloride 0.9% (plus) 50 ML IV ×4 (02:44→20:26)
[2023-04-08] MEDS: lactated ringers 1,000 ML 125 ML IV ×2 (02:44→15:49)
--- NOTE | 2023-04-08 03:05 | P.HP_ITS ---
Providers/Chief Complaint 2 Admitting Physician: Ezequiel Mills MD Primary CLASSIFIED AD CLERK: Jon Haynes MD Primary Care Provider: Leelee Levy Chief Complaint: fever sever pain recent c.sec dizzy pain HPI CLASSIFIED AD CLERK History of Present Illness 22 y.o. A1 s/p repeat with BTL March 29, 2023 presents to ER with two-day history of fever to 102.5 at home + moderate-severe lower abdominal pain No bleeding / discharge + chills + nausea, no vomiting No dysuria, breast pain, leg pain or swelling Medications/Allergies Home Medications Medication Instructions Recorded Confirmed Last Taken Type fluoxetine 20 mg capsule 20 mg PO DAILY #90 caps 11/22/22 04/02/23 Unknown Rx famotidine 20 mg tablet (Pepcid) 20 mg PO BID #60 tabs 12/14/22 04/02/23 Unknown Rx acetaminophen 325 mg capsule 325 mg PO Q4H PRN fever or pain 03/31/23 04/02/23 04/02/23 Rx #60 caps hydrocodone 5 mg-acetaminophen 325 1 tab PO Q4H PRN pain #30 tabs 03/31/23 04/02/23 04/02/23 Rx mg tablet ibuprofen 800 mg tablet 800 mg PO TID PRN pain #60 tabs 03/31/23 04/02/23 04/02/23 Rx hydrocodone 5 mg-acetaminophen 325 1 tab PO Q6H PRN pain #14 tabs 04/02/23 Unknown Rx mg tablet ondansetron 4 mg disintegrating 4 mg PO Q6H PRN nausea and 04/02/23 Unknown Rx tablet vomiting #14 tabs vit no.95-ferrous 1 tab PO DAILY 04/02/23 04/02/23 Unknown History fumarate 28 mg-folic acid 800 mcg tablet ( Multivitamins) Allergies Allergy/AdvReac Type Severity Reaction Status Date / Time No Known Allergies Allergy Verified 04/02/23 13:14 PFS CLASSIFIED AD CLERK 2 PFSH: Medical History Hypothyroidism Functional neurological symptom disorder with attacks or seizures PTSD pseudoseizures--evaluated by [facility] Neurology. Manages with communicative behavior. History of reactive attachment disorder Generalized anxiety disorder Major depressive disorder, recurrent, moderate Mitral valve prolapse Surgical History History of section (~08/2021) Primary elective section performed by Dr. Haynes H/O eye surgery [facility] correction Family History Other Adopted History History History 2 3 Term 2 0 Miscarriages/Ectopic 1 Living Children 2 Care NIKO Calculator 2 Estimated Delivery Date Method Current WG Current Estimate 04/05/23 LMP (Certain) 40w 3d Other Estimates 04/03/23 Ultrasound #1 40w 5d Specific Issues/Plans * DESIRES STERILIZATION---> LETICIA papers signed 01/18/2023 * HYPOTHYROIDISM- recheck level at 12 weeks * FAMILY HX CHROMOSOMAL DISORDER- sister unknown what kind * PREVIOUS C/S- desires repeat with tubal * PTSD INDUCED PSEUDO-SEIZURES * ANXIETY/DEPRESSION-started fluoxetine 10mg at 16wks * MVP Vitals/I&O/Wt Last Vital Signs Temp 101.4 F H 04/08/23 13:00 Pulse 98 04/08/23 10:00 Resp 16 04/08/23 10:00 BP 120/81 04/08/23 10:00 Pulse Ox 96 04/08/23 05:45 O2 Del Method Room Air 04/08/23 10:00 04/08/23 04/08/23 04/08/23 06:59 14:59 22:59 Intake Total 50 / 50 Balance 50 / 50 Weight last 48 hrs Weight 163 lb Weight 163 lb Physical Exam 2 Narrative: T 99.7 VS normal Awake, alert, comfortable HEENT: normal Lungs: clear Cor: RRR Abd: soft, nondistended + moderate tenderness on palpation lower quadrants No rebound Wound healing well, no erythema/exudate Ext: normal Data 04/07/23 23:05 04/07/23 23:05 Micro: Microbiology 04/07/23 23:05 Blood Culture - Preliminary Blood SPECIMEN COLLECTED Results Labs OB ([facility]): 2 Obstetrics US 12/18/22 Blood Type O Positive 03/29/23 Antibody Screen Negative 03/29/23 Hct 37.8 % (36-47) 04/07/23 Hgb 12.90 g/dL (11.27-16.99) 04/07/23 Rho(D) Type Rh positive 03/29/23 Plt Count 351 10^3/cmm (157-399) 04/07/23 Hep Bs Antigen Non-reactive (Nonreactive) 09/11/22 Hepatitis C Antibody Non-reactive (Nonreactive) 09/11/22 Rubella IgG Antibody 203.3 IU/mL (0.0-10.0) H 09/11/22 RPR Nonreactive (Nonreactive) 09/11/22 HIV 1&2 Ab & HIV 1 Ag Non-reactive (Non-Reactiv) 09/11/22 TSH 2.34 uIU/mL (0.27-4.20) 02/15/23 Free T4 1.04 ng/dL (0.82-1.77) 12/18/22 C.trachomatis RNA (TMA) Not detected (NOT DETECTED) N.gonorrhoeae RNA (TMA) Not detected (NOT DETECTED) T. vaginalis Amp RNA Not detected (NOT DETECTED) 10/05/22 Chlamydia/GC Comment See note 10/05/22 Cystic Fibrosis Screen Negative 09/11/22 Gest Glucose Tolerance 116 mg/dL (70-139) 12/14/22 Uric Acid 3.5 mg/dL (2.4-5.7) 07/09/21 Ser , Semi-Qnt 18857.00 mIU/mL 08/09/22 HCG, Qual Negative (Negative) 03/09/22 Urine Opiates Screen Negative ng/mL (Negative) 09/11/22 Ur Barbiturates Screen Negative ng/mL (Negative) 09/11/22 Ur Phencyclidine Scrn Negative ng/mL (Negative) 09/11/22 Ur Amphetamines Screen Negative ng/mL (Negative) 09/11/22 U Benzodiazepines Scrn Negative ng/mL (Negative) 09/11/22 Urine Cocaine Screen Negative ng/mL (Negative) 09/11/22 U Marijuana (THC) Screen Negative ng/mL (Negative) 09/11/22 Micro Urine Specimen 04/02/23 Pap Smear Interpret See note 09/27/21 Prolactin 16.07 ng/mL (4.8-23.3) 03/16/22 A&P Assessment and plan (1) Acute endometritis: [id number] endoparametritis Will admit Plan IV antibiotics, start Unasyn 3 Gms IV q 6 h Attestations 2 Medical Necessity Statement*: patient s/p and BTL on March 29, 2023, admitted with fever and abdominal pain Coding Level of Care Code Acute Code for [facility] Fwd Diagnoses Acute endometritis N71.0 Time Spent (min) 60
[2023-04-08] MEDS: acetaminophen 500 mg Tablet 1000 MG PO ×2 (08:42→13:00)
--- NOTE | 2023-04-08 12:40 | P.PN_ITS ---
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 OPERATOR Subjective 2 Subjective: Interval history: c/o lower abdominal pain + chills + nausea but no vomiting Vitals/I&O/Wt Last Vital Signs Temp 99.9 F H 04/09/23 11:39 Pulse 98 04/09/23 11:39 Resp 16 04/09/23 11:39 BP 101/65 04/09/23 11:39 Pulse Ox 95 04/09/23 11:39 O2 Del Method Room Air 04/09/23 11:39 04/08/23 04/09/23 04/09/23 22:59 06:59 14:59 Intake Total 100 / 1150 50 / 1200 50 / 50 Balance 100 / 1150 50 / 1200 50 / 50 Weight last 48 hrs Weight 163 lb Weight 163 lb Physical Exam 2 Narrative: Tmax 102.5 VS normal Resting comfortably Lungs: clear Cor: RRR Abd: soft, nondistended Mild tenderness lower quadrants No rebound Ext: nontender Data 04/07/23 23:05 04/07/23 23:05 Micro: Microbiology 04/07/23 23:05 Blood Culture - Preliminary Blood NEGATIVE TO DATE A&P Assessment and plan (1) Acute endometritis: Useu-k-mwhzjkh endoparametritis Hospital day #1 On Unasyn Continue Unasyn Attestations 2 Medical Necessity Statement*: patient admitted with fever, abdominal pain; on antibiotic for [id number]-[id number] endoparametritis. Coding Level of Care Code Acute Code for [facility] Fwd Diagnoses Acute endometritis N71.0 Time Spent (min) 20
[2023-04-08] MEDS: ibuprofen 800 mg tablet PO (15:49)
[2023-04-09] MEDS: ampicillin-sulbactam 3 GM in sodium chloride 0.9% (plus) 50 ML IV ×4 (02:58→22:28)
[2023-04-09 04:00] VITALS: BP 110/75; PULSE 90; RESP 16; TEMP 38.1; O2SAT 95
[2023-04-09] MEDS: HYDROcodone-acetaminophen 5-325 mg Tablet 1 TAB PO ×2 (07:35→18:18)
[2023-04-09 11:39] VITALS: BP 101/65; PULSE 98; RESP 16; TEMP 37.7; O2SAT 95
[2023-04-09] MEDS: ibuprofen 800 mg tablet PO (11:48)
--- NOTE | 2023-04-09 13:35 | PM.OBGYPN ---
SAMPLE SHOE INSPECTOR AND REWORKER Subjective Subjective: Interval history: states feeling better much less abdominal pain tolerating PO well no chills voiding, ambulating well Vitals/I&O/Wt Last Vital Signs Temp 99.3 F 04/10/23 04:41 Pulse 81 04/10/23 04:41 Resp 16 04/10/23 04:41 BP 112/71 04/10/23 04:41 Pulse Ox 98 04/10/23 04:41 O2 Del Method Room Air 04/10/23 04:41 04/09/23 04/10/23 04/10/23 22:59 06:59 14:59 Intake Total 1600 / 2950 Balance 1600 / 2950 Physical Exam Narrative: Tmax 100.6 VS normal comfortable, resting, awake, alert Abd: soft, nondistended, minimal tenderness lower quadrants no rebound Ext: normal Data 04/07/23 23:05 04/07/23 23:05 A&P Assessment and plan (1) Acute endometritis: uvpl-u-[id number] endoparametritis clinically improving Hospital Day #2 continue Unasyn plan continue antibiotics until 24-36 hours afebrile Attestations Medical Necessity Statement*: patient admitted with post-c-s endoparametritis, on antibiotics Coding Level of Care Code Acute Code for [facility] Fwd Diagnoses Acute endometritis N71.0 Time Spent (min) 30
[2023-04-09 18:19] VITALS: BP 108/75; PULSE 81; RESP 16; TEMP 38; O2SAT 97
[2023-04-09] MEDS: acetaminophen 500 mg Tablet 1000 MG PO (20:24)
[2023-04-09 21:15] VITALS: BP 110/69; PULSE 74; PULSE 81; RESP 16; TEMP 36.7; O2SAT 98; O2SAT 99
[2023-04-09] MEDS: diphenhydrAMINE 25 mg Capsule PO (22:28)
[2023-04-10] MEDS: ampicillin-sulbactam 3 GM in sodium chloride 0.9% (plus) 50 ML IV ×4 (04:39→22:42)
[2023-04-10 04:41] VITALS: BP 112/71; PULSE 81; RESP 16; TEMP 37.4; O2SAT 98
--- NOTE | 2023-04-10 10:44 | P.PN_ITS ---
SECURITY SYSTEM ADMINISTRATOR Subjective 2 Subjective: Interval history: states feeling much better no abdominal pain eating, ambulating well Vitals/I&O/Wt Last Vital Signs Temp 99.3 F 04/10/23 04:41 Pulse 81 04/10/23 04:41 Resp 16 04/10/23 04:41 BP 112/71 04/10/23 04:41 Pulse Ox 98 04/10/23 04:41 O2 Del Method Room Air 04/10/23 04:41 04/09/23 04/10/23 04/10/23 22:59 06:59 14:59 Intake Total 1600 / 2950 Balance 1600 / 2950 Physical Exam 2 Narrative: Tmax 100.4 at 1800 on 04-09-23; remainder of temps afebrile VS normal Comfortable, resting, awake, alert Abd: soft, nondistended, nontender Ext: normal Data 04/07/23 23:05 04/07/23 23:05 A&P Assessment and plan (1) Acute endometritis: fwez-j-hfabxyx endoparametritis on Unasyn Hospital Day #3 clinically much improved temperatures almost completely normal plan discharge tomorrow if clinically continues to improve Attestations 2 Medical Necessity Statement*: patient admitted with flpn-[id number] endoparametritis on IV antibiotics Coding Level of Care Code Acute Code for [facility] Fwd Diagnoses Acute endometritis N71.0 Time Spent (min) 30
[2023-04-10 11:30] VITALS: BP 119/75; PULSE 63; RESP 16; TEMP 38.2
[2023-04-10] MEDS: ibuprofen 800 mg tablet PO (16:57)
[2023-04-10 17:00] VITALS: BP 115/75; PULSE 67; RESP 16; TEMP 38.4
[2023-04-10 20:44] VITALS: BP 115/75; PULSE 77; RESP 16; TEMP 36.6; TEMP 36.7; O2SAT 97
[2023-04-11] MEDS: ampicillin-sulbactam 3 GM in sodium chloride 0.9% (plus) 50 ML IV ×4 (04:23→22:43)
[2023-04-11 04:24] VITALS: BP 129/71; PULSE 69; RESP 16; TEMP 36.8; O2SAT 96
[2023-04-11 10:49] VITALS: BP 109/67; PULSE 65; RESP 16; TEMP 36.8
--- NOTE | 2023-04-11 11:21 | P.PN_ITS ---
WOOL HAT SANDING MACHINE OPERATOR Subjective 2 Subjective: Interval history: no c/o no abdominal pain, chills no breast engorgement, leg pains eating well Vitals/I&O/Wt Last Vital Signs Temp 98.2 F 04/11/23 10:49 Pulse 65 04/11/23 10:49 Resp 16 04/11/23 10:49 BP 109/67 04/11/23 10:49 Pulse Ox 96 04/11/23 04:24 O2 Del Method Room Air 04/11/23 04:24 04/10/23 04/11/23 04/11/23 22:59 06:59 14:59 Intake Total 1999 100 / 2150 Balance 1999 100 / 2149 Physical Exam 2 Narrative: Tmax 101.2 had two temperature elevations over past 24 hours, one was 100.7 and the other 101.2 other temps afebrile VS normal patient comfortable, resting Lungs: clear Cor: RRR Abd: soft, nontender Ext: normal Data 04/07/23 23:05 04/07/23 23:05 A&P Assessment and plan (1) Acute endometritis: patient admitted with sviu-[id number] endoparametritis on Unasyn has been clinically much improved with no further abdominal / pelvic pain had two temperature elevations over past 24 hours will continue Unasyn IV will not discharge today plan re-assess for discharge tomorrow a.m. Attestations 2 Medical Necessity Statement*: patient admitted with post-c-s endoparametritis continue IV antibiotics Coding Level of Care Code Acute Code for [facility] Diagnoses Acute endometritis N71.0 Time Spent (min) 20
[2023-04-11 16:40] VITALS: BP 118/69; PULSE 67; RESP 16; TEMP 36.6
[2023-04-11 20:51] VITALS: BP 129/79; PULSE 75; RESP 16; TEMP 36.8; O2SAT 98
[2023-04-12] MEDS: ampicillin-sulbactam 3 GM in sodium chloride 0.9% (plus) 50 ML IV (04:33)
[2023-04-12 05:12] VITALS: BP 119/72; PULSE 55; RESP 16; TEMP 36.8; O2SAT 96
[2023-04-12 09:00] VITALS: BP 108/66; PULSE 67; RESP 16; TEMP 36.7
--- NOTE | 2023-04-12 16:44 | P.PN_ITS ---
EATING DISORDER PSYCHOLOGIST Subjective 2 Subjective: Interval history: no c/o no pain, chills eating, ambulating well Vitals/I&O/Wt Last Vital Signs Temp 98.0 F 04/12/23 09:00 Pulse 67 04/12/23 09:00 Resp 16 04/12/23 09:00 BP 108/66 04/12/23 09:00 Pulse Ox 96 04/12/23 05:12 O2 Del Method Room Air 04/12/23 05:12 04/12/23 04/12/23 04/12/23 06:59 14:59 22:59 Intake Total 100 / 1700 Balance 100 / 1700 Physical Exam 2 Narrative: comfortable, awake, alert afebrile x 36 hours last elevated temp was 101.2 at 1700 on April 10, 2023 VS normal Lungs: clear Cor: RRR Abd: soft, nontender Ext: normal Data 04/07/23 23:05 04/07/23 23:05 A&P Assessment and plan (1) Acute endometritis: patient admitted with fever, chills, abdominal pain. diagnosed with [id number] endoparametritis treated with IV Unasyn this a.m., patient has been afebrile for 36 hours patient clinically adequately treated plan discharge home does not require PO antibiotics precautions given to call / return if fever, chills, abdominal pain, bleeding f/u in two days Attestations 2 Medical Necessity Statement*: patient admitted with endoparametritis, plan discharge today Coding Level of Care Code Acute Code for [facility] Fwd Diagnoses Acute endometritis N71.0 Time Spent (min) 20
--- NOTE | 2023-04-12 16:53 | PM.OBGYDC ---
Discharge Providers DEICER INSPECTOR PNEUMATIC Date of Admission: 04/08/23 01:49 Date of Discharge: 04/12/23 Attending Provider at Admission: Ezequiel Mills MD Attending Provider at Discharge: Ezequiel Mills MD Consults: none Primary DEICER INSPECTOR PNEUMATIC: Jon Haynes MD Primary Care Provider: Leelee Levy Diagnoses at Discharge Discharge Diagnosis (1) Acute endometritis: Details from hospital stay: patient admitted with fever, chills, abdominal pain. diagnosed with [id number] endoparametritis treated with IV Unasyn this a.m., patient has been afebrile for 36 hours patient clinically adequately treated patient discharged home today Status: Acute Reason for Visit Reason for Visit: fever sever pain recent c.sec dizzy pain Brief History: 22 y.o. A1 h/o repeat with BTL March 29, 2023 presented to ER on April 08, 2023 with two-day history of fever to 102.5 and moderate-severe lower abdominal pain Hospital Course Hospital Course patient was diagnosed with acute [id number] endoparametritis patient placed on IV Unasyn clinically much improved had been afebrile x 36 hours on the morning of April 12, 2023 patient was discharged home on April 12, 2023 Physical Exam Narrative: comfortable, awake, alert afebrile x 36 hours last elevated temp was 101.2 at 1700 on April 10, 2023 VS normal Lungs: clear Cor: RRR Abd: soft, nontender Ext: normal History History History 3 Term 2 0 Miscarriages/Ectopic 1 Living Children 2 Discharge Data Studies Completed and Pending Completed Studies During Hospitalization Category Date Time Status CT abdomen pelvis w con* [id number] Stat Cat Scan 04/07/23 22:32 Completed US transvaginal [id number] Stat Ultrasound 04/08/23 00:00 Completed Pending at discharge Category Date Time Status Blood Culture Stat Lab 04/07/23 23:05 Results Radiology Impressions Abdomen/Pelvis CT 04/07/23 22:32 IMPRESSION: 1. Thickened endometrium/fluid up to 2 cm. Although this could be incidental, in the setting of fever consider further evaluation with ultrasound if there is clinical concern for endometritis. 2. Distended urinary bladder with mild reflux. 3. Other incidental findings as described. Transvaginal US 04/08/23 00:00 IMPRESSION: 1. Thickened endometrium with endocervical canal fluid. Given its lack of vascularity, this is probably due to postop blood products or physiologic causes. Given lack of vascularity, this makes endometritis or retained POC less likely. 2. Advise short-term follow-up. The exam was terminated early due to patient pain and discomfort. Laboratory Results WBC 13.63 10^3/uL (3.29-11.43) H 04/07/23 23:05 RBC 4.14 10^6/uL (3.85-5.65) 04/07/23 23:05 Hgb 12.90 g/dL (11.27-16.99) 04/07/23 23:05 Hct 37.8 % (36-47) 04/07/23 23:05 MCV 91.3 fl (85-98) 04/07/23 23:05 MCH 31.2 pg (27-33) 04/07/23 23:05 MCHC 34.1 g/dL (30-55) 04/07/23 23:05 RDW 12.8 % (12.1-15.1) 04/07/23 23:05 Plt Count 351 10^3/cmm (157-399) 04/07/23 23:05 MPV 8.7 fL (7.4-10.4) 04/07/23 23:05 Neut % (Auto) 87.0 % 04/07/23 23:05 Lymph % (Auto) 6.5 % 04/07/23 23:05 [place] % (Auto) 5.6 % 04/07/23 23:05 Eos % (Auto) 0.5 % 04/07/23 23:05 Baso % (Auto) 0.1 % 04/07/23 23:05 Neut # (Auto) 11.85 10^3/uL (1.8-7.7) H 04/07/23 23:05 Lymph # (Auto) 0.9 10^3/uL (0.8-4.8) 04/07/23 23:05 [place] # (Auto) 0.8 10^3/uL (0.2-0.9) 04/07/23 23:05 Eos # (Auto) 0.1 10^3/uL (0.0-0.8) 04/07/23 23:05 Baso # (Auto) 0.0 10^3/uL (0.0-0.1) 04/07/23 23:05 Nucleated RBC % (auto) 0 % 04/07/23 23:05 Nucleated RBCs # 0.0 /100WBC 04/07/23 23:05 Sodium 135 mmol/L (136-145) L 04/07/23 23:05 Potassium 4.0 mmol/L (3.5-5.1) 04/07/23 23:05 Chloride 101 mmol/L (98-107) 04/07/23 23:05 Carbon Dioxide 20 mmol/L (22-29) L 04/07/23 23:05 Anion Gap 18.0 (5-19) 04/07/23 23:05 BUN 9 mg/dL (6-20) 04/07/23 23:05 Creatinine 0.6 mg/dL (0.5-0.9) 04/07/23 23:05 GFR Calculation 125.0 mL/min (90-130) 04/07/23 23:05 Glucose 113 mg/dL (65-115) 04/07/23 23:05 Calculated Osmolality 279 mOsm/kg (285-295) L 04/07/23 23:05 Lactic Acid 0.9 mmol/L (0.5-2.2) 04/07/23 23:05 Calcium 8.5 mg/dL (8.5-10.5) 04/07/23 23:05 Total Bilirubin 0.5 mg/dL (0.15-1.2) 04/07/23 23:05 AST 22 U/L (0-32) 04/07/23 23:05 ALT 10 U/L (0-33) 04/07/23 23:05 Alkaline Phosphatase 108 U/L (35-105) H 04/07/23 23:05 C-Reactive Protein 28.7 mg/L (0.0-4.9) H 04/07/23 23:05 Total Protein 6.7 g/dL (6.6-8.7) 04/07/23 23:05 Albumin 3.6 g/dL (3.5-5.2) 04/07/23 23:05 Globulin 3.1 g/dL (1.3-4.6) 04/07/23 23:05 Urine Color Yellow (Yellow) 04/08/23 00:02 Urine Appearance Hazy (CLEAR) A 04/08/23 00:02 Urine pH 9 (5-7) H 04/08/23 00:02 Ur Specific [place] 1.010 (1.005-1.030) 04/08/23 00:02 Urine Protein Neg (Negative) 04/08/23 00:02 Urine Glucose (UA) Norm (Normal) 04/08/23 00:02 Urine Ketones 1+ (Negative) H 04/08/23 00:02 Urine Blood Neg (Negative) 04/08/23 00:02 Urine Nitrate Negative (Negative) 04/08/23 00:02 Urine Bilirubin Neg (Negative) 04/08/23 00:02 Prot Sulfosalicylic Acd Negative (Negative) 04/08/23 00:02 Urine Urobilinogen Norm mg/dL (Negative) 04/08/23 00:02 Ur Leukocyte Esterase 2+ (Negative) H 04/08/23 00:02 Urine RBC 0-4 /hpf (0-2) H 04/08/23 00:02 Urine WBC 15-25 /hpf (0-5) H 04/08/23 00:02 Ur Squamous Epith Cells 0-4 /hpf (0-5) H 04/08/23 00:02 Amorphous Sediment 1+ /hpf 04/08/23 00:02 Urine Bacteria 1+ /hpf (NONE) H 04/08/23 00:02 Hyaline Casts 0-4 /lpf H 04/08/23 00:02 Procedures Performed IV antibiotics treatment Vitals Last Vital Signs Temp 98.0 F 04/12/23 09:00 Pulse 67 04/12/23 09:00 Resp 16 04/12/23 09:00 BP 108/66 04/12/23 09:00 Pulse Ox 96 04/12/23 05:12 O2 Del Method Room Air 04/12/23 05:12 Results Labs OB ([facility]): Obstetrics US 12/18/22 Blood Type O Positive 03/29/23 Antibody Screen Negative 03/29/23 Hct 37.8 % (36-47) 04/07/23 Hgb 12.90 g/dL (11.27-16.99) 04/07/23 Rho(D) Type Rh positive 03/29/23 Plt Count 351 10^3/cmm (157-399) 04/07/23 Hep Bs Antigen Non-reactive (Nonreactive) 09/11/22 Hepatitis C Antibody Non-reactive (Nonreactive) 09/11/22 Rubella IgG Antibody 203.3 IU/mL (0.0-10.0) H 09/11/22 RPR Nonreactive (Nonreactive) 09/11/22 HIV 1&2 Ab & HIV 1 Ag Non-reactive (Non-Reactiv) 09/11/22 TSH 2.34 uIU/mL (0.27-4.20) 02/15/23 Free T4 1.04 ng/dL (0.82-1.77) 12/18/22 C.trachomatis RNA (TMA) Not detected (NOT DETECTED) 10/05/22 N.gonorrhoeae RNA (TMA) Not detected (NOT DETECTED) 10/05/22 T. vaginalis Amp RNA Not detected (NOT DETECTED) 10/05/22 Chlamydia/GC Comment See note 10/05/22 Cystic Fibrosis Screen Negative 09/11/22 Gest Glucose Tolerance 116 mg/dL (70-139) 12/14/22 Uric Acid 3.5 mg/dL (2.4-5.7) 07/09/21 Ser , Semi-Qnt 60892.00 mIU/mL 08/09/22 HCG, Qual Negative (Negative) 03/09/22 Urine Opiates Screen Negative ng/mL (Negative) 09/11/22 Ur Barbiturates Screen Negative ng/mL (Negative) 09/11/22 Ur Phencyclidine Scrn Negative ng/mL (Negative) 09/11/22 Ur Amphetamines Screen Negative ng/mL (Negative) 09/11/22 U Benzodiazepines Scrn Negative ng/mL (Negative) 09/11/22 Urine Cocaine Screen Negative ng/mL (Negative) 09/11/22 U Marijuana (THC) Screen Negative ng/mL (Negative) 09/11/22 Micro Urine Specimen 04/02/23 Pap Smear Interpret See note 09/27/21 Prolactin 16.07 ng/mL (4.8-23.3) 03/16/22 Discharge Plan Discharge Patient Disposition: Home Condition: Stable Prescriptions: Continued famotidine [Pepcid] 20 mg tablet 20 mg PO BID Qty: 60 3RF fluoxetine 20 mg capsule 20 mg PO DAILY Qty: 90 3RF ibuprofen 800 mg tablet 800 mg PO TID PRN (Reason: pain) Qty: 60 0RF acetaminophen 325 mg capsule 325 mg PO Q4H PRN (Reason: fever or pain) Qty: 60 0RF Multivitamins 28 mg iron- 800 mcg Tablet 1 tab PO DAILY ondansetron 4 mg tablet,disintegrating 4 mg PO Q6H PRN (Reason: nausea and vomiting) Qty: 14 0RF Discontinued hydrocodone-acetaminophen 5-325 mg tablet 1 tab PO Q4H PRN (Reason: pain) Qty: 30 0RF hydrocodone-acetaminophen 5-325 mg tablet 1 tab PO Q6H PRN (Reason: pain) Qty: 14 0RF Discharge Orders: Discharge Order (Routine); Ordered 04/12/23 Ordered By: Ezequiel Mills Referrals: Jon Haynes MD [Physician] - 04/13/23 9:30 am Discharge Diet: Usual diet Discharge Activity: Increase activity as tolerated Patient Instructions: Endometritis (GEN), Opioid Safety Discharge Attestations DEICER INSPECTOR PNEUMATIC Time Spent in Discharge Care*: less than 30 min Coding Level of Care Code Acute Code for Chg Fwd Diagnoses Acute endometritis N71.0 Time Spent (min) 20
== END 2023-04-12 09:55 | disposition home or self-care (01) | DRG 776 ==
LOC: ER 04-08 01:42 → OBGYN 04-08 01:59
PROVIDERS: Admitting Provider Obstetrics & Gynecology; Emergency Provider Emergency Medicine; PCP Nurse Practitioner Family; Visit Provider Obstetrics & Gynecology
DX: O86.12 Endometritis following delivery (principal); O99.285 Endocrine, nutritional and metabolic diseases complicating the puerperium; E03.9 Hypothyroidism, unspecified; O99.345 Other mental disorders complicating the puerperium; F41.1 Generalized anxiety disorder; F32.9 Major depressive disorder, single episode, unspecified; Z98.51 Tubal ligation status
CPT/HCPCS: 36415; 74177; 76830; 80053; 81001; 83605; 85025; 86140; 87040; 96365; 96372; 99285; J0295; J2250; J2543; J7030; J7120; Q9967

== ENCOUNTER 2023-05-01 11:10 | Emergency (ER) | payer MEDICAID, SELFPAY ==
[2023-05-01 11:18] VITALS: BP 113/71; PULSE 94; RESP 16; TEMP 36.8; O2SAT 95
[2023-05-01 11:34] LABS: Basophils % 0.4 %; Eosinophils # 0.1 10^3/uL (0.0-0.8); Eosinophils % 1.2 %; Hematocrit 40.6 % (36-47); Lymphocytes # 0.7 10^3/uL (0.8-4.8); Lymphocytes % 13.9 %; Mean Corpuscular HGB Conc 32.8 g/dL (30-55); Mean Corpuscular Hemoglobin 30.2 pg (27-33); Mean Corpuscular Volume 92.3 fl (85-98); Mean Platelet Volume 8.8 fL (7.4-10.4); Monocytes # 0.8 10^3/uL (0.2-0.9); Monocytes % 14.5 %; Neutrophils # 3.61 10^3/uL (1.8-7.7); Neutrophils % 69.8 %; Nucleated Red Blood Cells % 0 %; Platelet Count 223 10^3/cmm (157-399); Red Cell Distribution Width 12.9 % (12.1-15.1); White Blood Count 5.17 10^3/uL (3.29-11.43)
[2023-05-01 11:56] LABS: Alanine Aminotransferase 14 U/L (0-33); Alkaline Phosphatase 105 U/L (35-105); Anion Gap 14.9 (5-19); Aspartate Amino Transferase 19 U/L (0-32); Blood Urea Nitrogen 9 mg/dL (6-20); Calcium 8.6 mg/dL (8.5-10.5); Carbon Dioxide 25 mmol/L (22-29); Chloride 105 mmol/L (98-107); Creatinine Clr Calc Pharmacy 85.5045; Glomerular Filtration Rate 78.3 mL/min (90-130); Glucose 79 mg/dL (65-115); Osmolality Calculated 290 mOsm/kg (285-295); Potassium 3.9 mmol/L (3.5-5.1); Sodium 141 mmol/L (136-145); Total Bilirubin 0.3 mg/dL (0.15-1.2)
--- NOTE | 2023-05-01 13:49 | US_ITS ---
WS: [id number] US transvaginal [id number] HISTORY: r/o endometritis COMPARISON: None available. Uterus: 9.1 cm x 6.2 cm x 3.7 cm. Normal size retroverted uterus. There is a tiny calcification along the anterior lower uterine segmen t which shadow which is probably a fibroid measuring 1.3 x 1.0 x 1.4 cm. Endometrium: 0.7 cm. Normal. No fluid or thickening. Right ovary: 2.7 cm x 1.3 cm x 2.9 cm. Normal size and vascularity, no cystic or solid masses. Left ovary: 2.9 cm x 2.1 cm x 2.6 cm. Normal size and vascularity, no cystic or solid masses. No free fluid in the cul-de-sac. IMPRESSION: 1. Unremarkable pelvic ultrasound. There is no evidence for endometritis or PID by ultrasound. 2. Small calcified uterine fibroid.
--- NOTE | 2023-05-01 13:51 | ED_ITS ---
HPI - Fever 2 General: Chief Complaint: Fever Stated Complaint: 3 weeks post fever, abd pain Time Seen by Provider: 05/01/23 13:43 Source: patient Mode of arrival: ambulatory Limitations: no limitations History of Present Illness: 22-year-old female who had a d elivery a month ago at the first of this months she had diagnosed with endometritis she is admitted on IV antibiotics states she has been symptom-free over the last 3 weeks but she states that yesterday started having some abdominal pain some slight discharge and fevers at home patient is afebrile here she states her pain is a 3 out of 10 denies any vomiting or diarrhea. Associated symptoms: Reports abdominal pain and vaginal discharge; Deny chills, chest pain, diarrhea, dysuria, headache(s), nausea or vomiting Review of Systems 2 Const: Reports: fever(s); Denies: chills, body aches or change in appetite Eyes: Denies: eye discomfort ENMT: Denies: throat pain or dental pain Card: Denies: chest pain Resp: Denies: dyspnea GI: Reports: abdominal pain; Denies: nausea, vomiting or diarrhea : Reports: vaginal discharge; Denies: dysuria Musc: Denies: neck pain or back pain Skin/Breast: Denies: rash Neuro: Denies: headache(s) PFSH ED 2 PFSH: Medical History Hypothyroidism Functional neurological symptom disorder with attacks or seizures PTSD pseudoseizures--evaluated by [facility]. Manages with communicative behavior. History of reactive attachment disorder Generalized anxiety disorder Major depressive disorder, recurrent, moderate Mitral valve prolapse Surgical History History of section (~08/2021) Primary elective section performed by Dr. Haynes H/O eye surgery lazy eye correction Family History Other Adopted Physical Exam 2 Const: COMMON NORMALS: no acute distress, patient oriented x3 and healthy appearing HENMT: COMMON NORMALS: normocephalic and atraumatic HEAD & SCALP: n ormocephalic and atraumatic Neck/C-Spine: COMMON NORMALS: full ROM and supple Chest: COMMONS NORMALS: normal inspection of the chest Resp: COMMON NORMALS: normal respiratory effort, No retractions, No use of accessory muscles and clear to auscultation bilaterally AUSCULTATION: clear to auscultation bilaterally Cardio: COMMON NORMALS: regular rate, regular rhythm and No murmurs present (Cardio) RATE: regular rate RHYTHM: regular rhythm GI: COMMON NORMALS: Normal to inspection, nondistended, normoactive bowel sounds present, Soft to palpation, non-tender and no masses PALPATION: Yes Soft to palpation Extremity: COMMON NORMALS: normal to inspection and full ROM Neuro: COMMON NORMALS: patient oriented x3, moves all extremities and no focal motor deficits Psych: COMMON NORMALS: mental status grossly normal, Normal thought process present and cooperative THOUGHT PROCESS: Normal thought process present Skin: COMMON NORMALS: no rashes or lesions noted and no wounds GENERAL SKIN EXAM: no rashes or lesions noted Course 2 Vital Signs: Vital signs: Vital Signs Temperature 98.3 F 05/01/23 11:18 Pulse Rate 89 05/01/23 17:25 Respiratory Rate 15 05/01/23 17:25 Blood Pressure 113/70 05/01/23 17:25 Pulse Oximetry 95 05/01/23 17:25 Oxygen Delivery Me thod Room Air 05/01/23 11:18 MDM - Fever Medical Decision Making Patient presents for lower abdominal pain she is concerned about endometritis. Her white count here is normal she is afebrile here CT scan and ultrasound are both negative she is stable for discharge we will prescribe her some pain meds she is to follow-up with her OB return if worsening she understands agrees to plan Medical Records I reviewed the patient's medical records. Lab Data I reviewed the patient's lab results. 05/01/23 11:27 05/01/23 11:27 Radiology Impressions Abdomen/Pelvis CT 05/01/23 15:05 IMPRESSION: No acute findings. Laboratory Results WBC 5.17 10^3/uL (3.29-11.43) 05/01/23 11: RBC 4.40 10^6/uL (3.85-5.65) 05/01/23 11: Hgb 13.30 g/dL (11.27-16.99) 05/01/23 11: Hct 40.6 % (36-47) 05/01/23 11: MCV 92.3 fl (85-98) 05/01/23 11: MCH 30.2 pg (27-33) 05/01/23 11: MCHC 32.8 g/dL (30-55) 05/01/23 11: RDW 12.9 % (12.1-15.1) 05/01/23 11: Plt Count 223 10^3/cmm (157-399) 05/01/23 11: MPV 8.8 fL (7.4-10.4) 05/01/23 11:27 Neut % (Auto) 69.8 % 05/01/23 11: Lymph % (Auto) 13.9 % 05/01/23 11: [place] % (Auto) 14.5 % 05/01/23 11: Eos % (Auto) 1.2 % 05/01/23 11: Baso % (Auto) 0.4 % 05/01/23 11: Neut # (Auto) 3.61 10^3/uL (1.8-7.7) 05/01/23 11: Lymph # (Auto) 0.7 10^3/uL (0.8-4.8) L 05/01/23 11: [place] # (Auto) 0.8 10^3/uL (0.2-0.9) 05/01/23 11: Eos # (Auto) 0.1 10^3/uL (0.0-0.8) 05/01/23 11: Baso # (Auto) 0.0 10^3/uL (0.0-0.1) 05/01/23 11:27 Nucleated RBC % (auto) 0 % 05/01/23 11: Nucleated RBCs # 0.0 /100WBC 05/01/23 11: Sodium 141 mmol/L (136-145) 05/01/23 11: Potassium 3.9 mmol/L (3.5-5.1) 05/01/23 11: Chloride 105 mmol/L (98-107) 05/01/23 11: Carbon Dioxide 25 mmol/L (22-29) 05/01/23 11: Anion Gap 14.9 (5-19) 05/01/23 11:27 BUN 9 mg/dL (6-20) 05/01/23 11: Creatinine 0.9 mg/dL (0.5-0.9) 05/01/23 11: GFR Calculation 78.3 mL/min (90-130) L 05/01/23 11:27 Glucose 79 mg/dL (65-115) 05/01/23 11:27 Calculated Osmolality 290 mOsm/kg (285-295) 05/01/23 11:27 Calcium 8.6 mg/dL (8.5-10.5) 05/01/23 11: Total Bilirubin 0.3 mg/dL (0.15-1.2) 05/01/23 11: AST 19 U/L (0-32) 05/01/23 11: ALT 14 U/L (0-33) 05/01/23 11: Alkaline Phosphatase 105 U/L (35-105) 05/01/23 11:27 Total Protein 7.0 g/dL (6.6-8.7) 05/01/23 11: Albumin 4.0 g/dL (3.5-5.2) 05/01/23 11: Globulin 3.0 g/dL (1.3-4.6) 05/01/23 11:27 Urine Color Yellow (Yellow) 05/01/23 13:45 Urine Appearance Clear (CLEAR) 05/01/23 13:45 Urine pH 5 (5-7) 05/01/23 13:45 Ur Specific [place] 1.020 (1.005-1.030) 05/01/23 13:45 Urine Protein Trace (Negative) 05/01/23 13:45 Urine Glucose (UA) Norm (Normal) 05/01/23 13:45 Urine Ketones Negative (Negative) 05/01/23 13:45 Urine Blood Neg (Negative) 05/01/23 13:45 Urine Nitrate Negative (Negative) 05/01/23 13:45 Urine Bilirubin Neg (Negative) 05/01/23 13:45 Urine Urobilinogen 1 mg/dL (Negative) H 05/01/23 13:45 Ur Leukocyte Esterase Trace (Negative) H 05/01/23 13:45 Urine RBC 0-4 /hpf (0-2) H 05/01/23 13:45 Urine WBC 0-4 /hpf (0-5) H 05/01/23 13:45 Ur Squamous Epith Cells 10-15 /hpf (0-5) H 05/01/23 13:45 Amorphous Sediment Not Reportable 05/01/23 13:45 Urine Bacteria 1+ /hpf (NONE) H 05/01/23 13:45 Urine Mucus 2+ /hpf 05/01/23 13:45 All radiology interpretation(s) finalized by discharge Discharge Plan Discharge Patient Disposition: Home Clinical Impression: Abdominal pain Condition: Stable Prescriptions: New hydrocodone-acetaminophen 5-325 mg tablet 1 tab PO Q6H PRN (Reason: pain) Qty: 14 0RF ondansetron 4 mg tablet,disintegrating 4 mg PO Q6H PRN (Reason: nausea and vomiting) Qty: 14 0RF No Action famotidine [Pepcid] 20 mg tablet 20 mg PO BID Qty: 60 3RF fluoxetine 20 mg capsule 20 mg PO DAILY Qty: 90 3RF ibuprofen 800 mg tablet 800 mg PO TID PRN (Reason: pain) Qty: 60 0RF acetaminophen 325 mg capsule 325 mg PO Q4H PRN (Reason: fever or pain) Qty: 60 0RF Multivitamins 28 mg iron- 800 mcg Tablet 1 tab PO DAILY ondansetron 4 mg tablet,disintegrating 4 mg PO Q6H PRN (Reason: nausea and vomiting) Qty: 14 0RF Discharge Orders: Discharge ED (Routine); Ordered 05/01/23 Ordered By: Jay Souza Referrals: Jon Haynes MD [Physician] - 1-3 days Leelee Levy, INSOLE ROUNDER [Primary Care Provider] - Discharge Diet: Advance as tolerated Discharge Activity: Resume usual activity Patient Instructions: Abdominal Pain (ED) Coding Level of Care Code ED Audio Visual Collections Coordinator for Pradeep Yañez
[2023-05-01 14:08] LABS: Bilirubin Urine Neg (Negative); Blood Urine Neg (Negative); Glucose Urine UA Norm (Normal); Ketones Urine Negative (Negative); Nitrate Urine Negative (Negative); Protein Urine Trace (Negative); Urine Appearance Clear (CLEAR); Urine Color Yellow (Yellow); Urobilinogen Urine 1 mg/dL (Negative); pH Urine 5 (5-7)
[2023-05-01 14:09] LABS: Add Urine Culture? No; Add Urine Microscopic? YES; Bacteria Urine 1+ /hpf; Leukocyte Esterase Urine Trace (Negative); Mucus Urine 2+ /hpf; RBC Urine 0-4 /hpf (0-2); WBC Urine 0-4 /hpf (0-5)
--- NOTE | 2023-05-01 15:05 | CTR_ITS ---
PROCEDURE INFORMATION: Exam: CT Abdomen And Pelvis With Contrast Exam date and time: 05/01/2023 5:20 PM Age: 22 years old Clinical indication: Abdominal pain; Other: Infected location; Prior surgery; Surgery date: 6+ months; Surgery type: C section 4 weeks ago; Additional info: Lower abd pain TECHNIQUE: Imaging protocol: Computed tomography of the abdomen and pelvis with contrast. Radiation optimization: All CT scans at this facility use at least one of these dose optimization techniques: automated exposure control; mA and/or kV adjustment per patient size (includes targeted exams where dose is matched to clinical indication); or iterative reconstruction. Contrast material: OMNI 350; Contrast volume: 100 ml; Contrast route: INTRAVENOUS (IV); COMPARISON: CT abdomen pelvis w con* [id number] 04/07/2023 11:16 PM RADIATION DOSE METRICS: Total DLP (mGy-cm): 553 FINDINGS: Liver: Normal. No mass. Gallbladder and bile ducts: Normal. No calcified stones. No ductal dilation. Pancreas: Normal. No ductal dilation. Spleen: Normal. No splenomegaly. Adrenal glands: Normal. No mass. Kidneys and ureters: Normal. No hydronephrosis. Stomach and bowel: Unremarkable. No obstruction. No mucosal thickening. Appendix: No evidence of appendicitis. Intraperitoneal space: Unremarkable. No free air. No significant fluid collection. Vasculature: Unremarkable. No abdominal aortic aneurysm. Lymph nodes: Unremarkable. No enlarged lymph nodes. Urinary bladder: Unremarkable as visualized. Reproductive: Unremarkable as visualized. Bones/joints: No acute fracture. Soft tissues: Small fat containing periumbilical hernia. Linear area of fat stranding at the incision site. No fluid collection seen in this region. CT/CT abdomen pelvis w con* [id number] IMPRESSION: No acute findings.
[2023-05-01 17:25] VITALS: BP 113/70; PULSE 89; RESP 15; O2SAT 95
[2023-05-01] MEDS: iohexol 350 mg/mL 500 mL Btl (per mL) IV (17:25)
[2023-05-01 18:21] VITALS: BP 113/74; PULSE 102; O2SAT 96
== END 2023-05-01 18:23 | disposition home or self-care (01) ==
PROVIDERS: Emergency Provider Emergency Medicine; PCP Nurse Practitioner Family
DX: R10.9 Unspecified abdominal pain (principal)
CPT/HCPCS: 36415; 74177; 76830; 80053; 81001; 85025; 99285; Q9967

== ENCOUNTER 2023-05-02 22:00 | Inpatient (IN) | payer MEDICAID, SELFPAY ==
[2023-05-02 22:01] VITALS: BP 139/90; PULSE 80; RESP 18; TEMP 36.8; O2SAT 97; BMI 29.2
--- NOTE | 2023-05-02 22:16 | PC.NURSE ---
Patient has been dressed out of street clothes and placed in paper scrubs. Patient's belongings removed and placed in labeled bag. Patient placed in cleared psych room with PSA present.
--- NOTE | 2023-05-02 22:19 | W.ED.PSYCHS ---
HPI - Psych General: Chief Complaint: Psychiatric Symptoms Stated Complaint: depression Time Seen by Provider: 05/02/23 22:09 History of Present Illness: 22-year-old female comes in today with concerns of depression. Patient had a delivery 1 month ago on 28 March. Patient has had a history of anxiety and depression before then. Since then patient has had increasing problems with depression. Patient's was in the and was absence during the delivery and has just returned home. Patient scott was on the [place] tracks and had called her [id number] for help due to thoughts of suicide and wanting her sister to take care of the babies. Patient was brought in by law enforcement after a call to law enforcement from the [id number]. Patient has no other chronic medical problems. Patient does have a healing wound to the abdomen from a . Review of Systems General: Reports: 10 or more systems reviewed and unremarkable except in HPI and below PFSH ED PFSH: Medical History Hypothyroidism Functional neurological symptom disorder with attacks or seizures PTSD pseudoseizures--evaluated by [facility]. Manages with communicative behavior. History of reactive attachment disorder Generalized anxiety disorder Major depressive disorder, recurrent, moderate Mitral valve prolapse Surgical History History of section (~08/2021) Primary elective section performed by Dr. Haynes H/O eye surgery lazy eye correction Family History Other Adopted Female Reproductive History: Date of last menstrual period: 04/17/23 Physical Exam Const: COMMON NORMALS: alert HENMT: COMMON NORMALS: normocephalic HEAD & SCALP: normocephalic Neck/C-Spine: COMMON NORMALS: full ROM Resp: COMMON NORMALS: normal respiratory effort and clear to auscultation bilaterally AUSCULTATION: clear to auscultation bilaterally Cardio: COMMON NORMALS: regular rate RATE: regular rate GI: COMMON NORMALS: Soft to palpation and non-tender PALPATION: Yes Soft to palpation Back/Pelvis: COMMON NORMALS: thoracic and lumbar spine normal to inspection Extremity: COMMON NORMALS: no pedal edema Neuro: SENSORIUM/ORIENTATION: Yes alert Skin: COMMON NORMALS: turgor normal GENERAL SKIN EXAM: turgor normal Course Vital Signs: Vital signs: Vital Signs Temperature 98.3 F 05/02/23 22:01 Pulse Rate 80 05/02/23 22:01 Respiratory Rate 18 05/02/23 22:01 Blood Pressure 139/90 05/02/23 22:01 Pulse Oximetry 97 05/02/23 22:01 Oxygen Delivery Me thod Room Air 05/02/23 22:01 MDM - Psych Medical Decision Making Patient presented to the ER with suicidal ideation. Patient was found along train tracks and wanting to be ran over by a train in order to end her life. Patient had reached out to her family and asked her [id number] to take care of her children. Law enforcement intervened and brought patient to the emergency room for treatment. Differential diagnosis includes suicidal ideation, major depressive disorder, depression, adjustment disorder. Patient was placed on a 96-hour hold for protection of self. Reviewed exam with Dr. Mi who agreed for admission. Dr. Mejia was consulted for admission orders. Lab Data 05/02/23 22:24 05/02/23 22:24 Laboratory Results WBC 4.68 10^3/uL (3.29-11.43) 05/02/23 22:24 RBC 4.97 10^6/uL (3.85-5.65) 05/02/23 22:24 Hgb 15.10 g/dL (11.27-16.99) 05/02/23 22:24 Hct 45.7 % (36-47) 05/02/23: MCV 92.0 fl (85-98) 05/02/23 22:24 MCH 30.4 pg (27-33) 05/02/23 22:24 MCHC 33.0 g/dL (30-55) 05/02/23 22:24 RDW 12.9 % (12.1-15.1) 05/02/23 22:24 Plt Count 221 10^3/cmm (157-399) 05/02/23 22:24 MPV 9.0 fL (7.4-10.4) 05/02/23 22: Neut % (Auto) 63.7 % 05/02/23: Lymph % (Auto) 19.9 % 05/02/23:24 [place] % (Auto) 14.7 % 05/02/23 22:24 Eos % (Auto) 1.3 % 05/02/23 22:24 Baso % (Auto) 0.4 % 05/02/23 22:24 Neut # (Auto) 2.98 10^3/uL (1.8-7.7) 05/02/23 22:24 Lymph # (Auto) 0.9 10^3/uL (0.8-4.8) 05/02/23 22:24 [place] # (Auto) 0.7 10^3/uL (0.2-0.9) 05/02/23 22:24 Eos # (Auto) 0.1 10^3/uL (0.0-0.8) 05/02/23 22: Baso # (Auto) 0.0 10^3/uL (0.0-0.1) 05/02/23 22:24 Nucleated RBC % (auto) 0 % 05/02/23 22: Nucleated RBCs # 0.0 /100WBC 05/02/23 22:24 Sodium 140 mmol/L (136-145) 05/02/23 22:24 Potassium 3.4 mmol/L (3.5-5.1) L 05/02/23 22:24 Chloride 101 mmol/L (98-107) 05/02/23 22:24 Carbon Dioxide 27 mmol/L (22-29) 05/02/23 22:24 Anion Gap 15.4 (5-19) 05/02/23 22:24 BUN 7 mg/dL (6-20) 05/02/23 22:24 Creatinine 0.8 mg/dL (0.5-0.9) 05/02/23 22:24 GFR Calculation 89.7 mL/min (90-130) L 05/02/23 22:24 Glucose 90 mg/dL (65-115) 05/02/23 22:24 Calculated Osmolality 288 mOsm/kg (285-295) 05/02/23 22:24 Calcium 8.9 mg/dL (8.5-10.5) 05/02/23 22:24 Total Bilirubin 0.3 mg/dL (0.15-1.2) 05/02/23 22:24 AST 26 U/L (0-32) 05/02/23 22:24 ALT 16 U/L (0-33) 05/02/23 22:24 Alkaline Phosphatase 101 U/L (35-105) 05/02/23 22:24 Total Protein 7.7 g/dL (6.6-8.7) 05/02/23 22:24 Albumin 4.4 g/dL (3.5-5.2) 05/02/23 22:24 Globulin 3.3 g/dL (1.3-4.6) 05/02/23 22:24 TSH 3.35 uIU/mL (0.27-4.20) 05/02/23 22:24 HCG, Qual Negative (Negative) 05/02/23 22:24 Urine Color Yellow (Yellow) 05/02/23 22:24 Urine Appearance Hazy (CLEAR) A 05/02/23 22:24 Urine pH 6 (5-7) 05/02/23 22:24 Ur Specific R[place] 1.015 (1.005-1.030) 05/02/23 22:24 Urine Protein Neg (Negative) 05/02/23 22:24 Urine Glucose (UA) Norm (Normal) 05/02/23 22:24 Urine Ketones Negative (Negative) 05/02/23 22:24 Urine Blood Neg (Negative) 05/02/23 22:24 Urine Nitrate Negative (Negative) 05/02/23 22:24 Urine Bilirubin Neg (Negative) 05/02/23 22:24 Urine Urobilinogen Neg mg/dL (Negative) 05/02/23 22:24 Ur Leukocyte Esterase Negative (Negative) 05/02/23 22:24 Urine RBC None /hpf (0-2) 05/02/23 22:24 Urine WBC None /hpf (0-5) 05/02/23 22:24 Ur Squamous Epith Cells 40-55 /hpf (0-5) H 05/02/23 22:24 Amorphous Sediment Not Reportable 05/02/23 22:24 Urine Bacteria 1+ /hpf (NONE) H 05/02/23 22:24 Urine Mucus 2+ /hpf 05/02/23 22:24 Salicylates < 0.3 mg/dL (3-10) L 05/02/23 22:24 Urine Opiates Screen Negative ng/mL (Negative) 05/02/23 22: Acetaminophen < 5.0 ug/mL (10-30) L 05/02/23 22:24 Ur Barbiturates Screen Negative ng/mL (Negative) 05/02/23 22:24 Ur Phencyclidine Scrn Negative ng/mL (Negative) 05/02/23 22:24 Ur Amphetamines Screen Negative ng/mL (Negative) 05/02/23 22:24 U Benzodiazepines Scrn Positive ng/mL (Negative) H 05/02/23 22:24 Urine Cocaine Screen Negative ng/mL (Negative) 05/02/23 22:24 U Marijuana (THC) Screen Negative ng/mL (Negative) 05/02/23 22:24 Ethyl Alcohol < 10 mg/dL (0-10) 05/02/23 22:24 No radiology studies performed this visit Discharge Plan Discharge Admit Provider: Alexey Mi Condition: Stable Coding Level of Care Code ED [employer] for Pradeep Yañez
[2023-05-02 22:32] LABS: Basophils % 0.4 %; Eosinophils # 0.1 10^3/uL (0.0-0.8); Eosinophils % 1.3 %; Hematocrit 45.7 % (36-47); Lymphocytes # 0.9 10^3/uL (0.8-4.8); Lymphocytes % 19.9 %; Mean Corpuscular Hemoglobin 30.4 pg (27-33); Monocytes # 0.7 10^3/uL (0.2-0.9); Monocytes % 14.7 %; Neutrophils # 2.98 10^3/uL (1.8-7.7); Neutrophils % 63.7 %; Nucleated Red Blood Cells % 0 %; Platelet Count 221 10^3/cmm (157-399); Red Blood Count 4.97 10^6/uL (3.85-5.65); Red Cell Distribution Width 12.9 % (12.1-15.1); White Blood Count 4.68 10^3/uL (3.29-11.43)
--- NOTE | 2023-05-02 22:40 | PC.NURSE ---
96 Hour Involuntary Hold Rights have been read to the patient and a copy of the same has been given to her. Patient Registration Clerk Remi Macias was present at bedside at the time of presentation of Rights.
[2023-05-02 22:41] LABS: Add Urine Microscopic? YES; Bilirubin Urine Neg (Negative); Blood Urine Neg (Negative); Glucose Urine UA Norm (Normal); Ketones Urine Negative (Negative); Leukocyte Esterase Urine Negative (Negative); Nitrate Urine Negative (Negative); Protein Urine Neg (Negative); Specific Gravity, Urine 1.015 (1.005-1.030); Urine Appearance Hazy (CLEAR); Urine Color Yellow (Yellow); Urobilinogen Urine Neg (Negative); pH Urine 6 (5-7)
[2023-05-02 22:42] LABS: Add Urine Culture? No; Amphetamines Screen Urine Negative (Negative); Bacteria Urine 1+ /hpf; Barbiturates Screen Urine Negative (Negative); Benzodiazepines Screen Urine Positive (Negative); Cocaine Screen Urine Negative (Negative); Mucus Urine 2+ /hpf; Opiate Screen Urine Negative (Negative); PCP Screen Urine Negative (Negative); Squamous Epithelial Cell Urine 40-55 /hpf (0-5); THC Screen Urine Negative (Negative)
[2023-05-02 22:47] LABS: HCG, Serum Qual Negative (Negative)
[2023-05-02 22:58] LABS: Alanine Aminotransferase 16 U/L (0-33); Albumin Level 4.4 g/dL (3.5-5.2); Alkaline Phosphatase 101 U/L (35-105); Anion Gap 15.4 (5-19); Aspartate Amino Transferase 26 U/L (0-32); Blood Urea Nitrogen 7 mg/dL (6-20); Calcium 8.9 mg/dL (8.5-10.5); Carbon Dioxide 27 mmol/L (22-29); Chloride 101 mmol/L (98-107); Creatinine Clr Calc Pharmacy 94.9291; Globulin 3.3 g/dL (1.3-4.6); Glomerular Filtration Rate 89.7 mL/min (90-130); Glucose 90 mg/dL (65-115); Osmolality Calculated 288 mOsm/kg (285-295); Potassium 3.4 mmol/L (3.5-5.1); Sodium 140 mmol/L (136-145); Thyroid Stimulating Hormone 3.35 uIU/mL (0.27-4.20); Total Bilirubin 0.3 mg/dL (0.15-1.2); Total Protein 7.7 g/dL (6.6-8.7)
[2023-05-02 22:59] LABS: Acetaminophen < 5.0 ug/mL (10-30); Alcohol Level < 10 mg/dL (0-10); Salicylate < 0.3 mg/dL (3-10)
--- NOTE | 2023-05-03 00:01 | PC.NURSE ---
Patient report called to Lesia OSORIO in NPU. All questions and concerns addressed at time of report.
[2023-05-03 00:18] VITALS: BP 127/90; PULSE 63; RESP 18; TEMP 36.7; O2SAT 99
--- NOTE | 2023-05-03 01:08 | PC.ADMIT ---
[email or web address] [facility] Admission Note: The patient,Kavita Zamudio,22 y/o, was given written information regarding hospital policies, unit procedures and contact persons. Patient's smoking status: .NON SMOKER Vital Signs - 8 hr 05/02/23 22:01 05/03/23 00:18 05/03/23 00:56 Temperature 98.3 F 98.1 F Pulse Rate 80 63 Respiratory Rate 18 18 Blood Pressure 139/90 127/90 Pulse Oximetry 97 99 Oxygen Delivery Method Room Air Room Air Room Air ADMITTED FROM ER VIA WHEELCHAIR, SECURITY AND ER STAFF. PT IS ON A 96 HOUR HOLD THAT ENDS ON 05/08/23 AT 1999. PT REPORTS SHE IS HERE DUE TPO HAVNG SUICIDAL THOUGHTS AND HORRIBLE THOUGHTS. PT STATES HER CAME HOME FROM THE ON SUNDAY AND THAT IS WHEN IT WORSENED. PT HAD A A MONTH AGO WHICH HER MISSED DUE TO BEING IN BASIC TRAINING. PT REPORTS HAVING ONE OTHER CHILD AND SINCE THE OF THE SECOND CHILD SHE HAS HAD INCREASING DEPRESSION AND SUICIDAL THOUGHTS. PT REPORTS SHE WAS READMITTED TO THE HOSPITAL WITH AN INFECTION, UTI AND ENDOMETRIOSIS. PT STATES SHE WAS PUT ON 2 ANTIBIOTICS THIS MORNING FROM HER PCP BUT CAN ONLY REMEMBER ONE MED STARTS WITH AN M AND THE OTHER ONE IS DOXYCYCLINE. RN ASKED IF HER WAS UP TO VERIFY THE MEDICATIONS SO THEY CAN BE RESTARTED, PT STATED NOT TIL 800 AM THIS MORNING. WILL HAVE STAFF CONTACT [facility] WHERE PT RECEIVED ANTIBIOTICS AND VERIFY THE MEDICATIONS, DOSAGE AND DURATION. PT DENIES PAIN. DENIES SI/HI AND AVH AT THIS TIME. PT DENIES DRUG AND ALCOHOL ABUSE. PT HAS NEVER BEEN TO A PSYCHIATRIC UNIT AND DOES NOT SEE ANYONE FOR OUTPATIENT PSYCHIATRIC SERVICES. SKIN ASSESSMENT COMPLETED, SCAR IS NOTED TO THE LOWER ABDOMEN, BIKINI CUT, AREA HAS GLUE AROUND SITE, NO REDNESS, NO DRAINAGE NO S/S OF INFECTION. PT WAS ORIENTATED TO UNIT, RULES AND UNIT REGUALTATIONS. PT STATES SHE IS SCARED TO BE HERE AND AFRAID OF THE OTHER PTS. PT WAS ASSURRED SHE IS OK AND IF SHE IS FRIGHTEND TO COME TO THE NURSES STATION. ALL QUESTIONS WERE ANSWERED AND SUPPORT WAS VOICED. PT DECLINES PRN MEDICATIONS AT THIS TIME. RATES ANXIETY AND DEPRESSION 9/10. DENIES PAIN.
[2023-05-03 06:00] VITALS: BP 106/74; PULSE 91; RESP 18; TEMP 36.7; O2SAT 99
[2023-05-03] MEDS: fluoxetine 20 mg Capsule PO (08:25)
[2023-05-03] MEDS: famotidine 20 mg Tablet PO (08:25)
[2023-05-03] MEDS: hyDROXYzine 25 mg Capsule 50 MG PO (08:29)
[2023-05-03 13:55] VITALS: BP 114/81; PULSE 102; RESP 13; TEMP 36.6; O2SAT 98
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
[2023-05-03] MEDS: OLANZapine 5 mg ODT PO (16:11)
[2023-05-03] MEDS: doxycycline 100 mg Tablet PO (16:11)
[2023-05-03] MEDS: fluoxetine 10 mg Capsule PO (16:12)
[2023-05-03] MEDS: metroNIDAZOLE 500 MG Tablet PO (17:55)
[2023-05-03 20:23] VITALS: BP 98/70; PULSE 89; RESP 15; TEMP 36.9; O2SAT 98
[2023-05-04 06:00] VITALS: BP 93/55; PULSE 103; RESP 14; TEMP 36.8; O2SAT 98
[2023-05-04] MEDS: metroNIDAZOLE 500 MG Tablet PO ×2 (08:38→18:02)
[2023-05-04] MEDS: ibuprofen 600 mg Tablet PO (08:38)
[2023-05-04] MEDS: doxycycline 100 mg Tablet PO ×2 (08:39→18:02)
[2023-05-04] MEDS: fluoxetine 20 mg Capsule PO (09:19)
[2023-05-04] MEDS: fluoxetine 10 mg Capsule PO (09:19)
[2023-05-04 14:00] VITALS: BP 96/52; PULSE 59; RESP 13; TEMP 36.5; O2SAT 99
--- NOTE | 2023-05-04 16:07 | W.PM.NPUPNS ---
Subjective NPU Subjective: 22-year-old white female admitted with suicidal ideation with a history of major depressive disorder and generalized anxiety disorder. Patient had reported that she was feeling better today. She had reported significant stress at home with managing 2 children under the age of 24 months. She had reported having struggles with communicating her feelings with her family members. She had reported having problems with consistent sleep with a child. She reported having some support from her . She had reported previously having taken antidepressants but stated that she had later stopped these medicines without any particular reason. She reported no side effects from her Prozac at this time. Mental Status Exam MSE Comments: Patient is a pleasant and cooperative female who appeared her stated age with fleeting eye contact and normal gait. There was no evidence of any abnormal involuntary motor movements tics or tremors appreciated. There was moderate psychomotor retardation evident. Her speech was normal in regards to rate, rhythm, and prosody. Her mood was described as depressed. Her affect was mood congruent and restricted in range. Her thought process was linear, logical and goal-directed. Her thought content showed no evidence of suicidal ideation today. She denied any homicidal ideation. She did not appear to be responding to internal stimuli. There was no clear evidence of delusional thinking. Her attention span appeared adequate. Her insight is poor. Her judgment was poor. Her impulse control appeared limited at this time. She was alert and oriented to person place time and situation. Vitals/I&O/Wt Last Vital Signs Temp 98.3 F 05/04/23 06:00 Pulse 103 H 05/04/23 06:00 Resp 14 05/04/23 06:00 BP 93/55 05/04/23 06:00 Pulse Ox 98 05/04/23 06:00 O2 Del Method Room Air 05/04/23 06:00 Weight last 48 hrs Weight 68.039 kg Data NPU 05/02/23 22:24 05/02/23 22:24 A&P Assessment and plan (1) MDD (major depressive disorder), recurrent severe, without psychosis: (2) Generalized anxiety disorder: Plan 22-year-old female past history of neglect and symptoms suggestive of reactive attachment disorder who reported suicidal ideation with feelings of abandonment and worsening depression and anxiety. ?1. Encourage individual, group and milieu therapy. ?2.Recommend sober living treatment at the highest level of care to which the patient is willing to commit. 3.Continue q-15 minute checks for safety.? 4. Continue prozac 30mg daily with likely increase to 40mg in 1-2 days. 5. Will attempt to gather collateral information. Involuntary Hold Information 96 Hour Hold: 96 Hour Involuntary Admission: Yes 96 Hour Hold Ending Date: 05/08/23 96 Hour Hold Ending Time: 20:00 Attestations NPU Medical Necessity Statement*: Inpatient hospitalization is medically necessary and deemed to ?be ?the clinically appropriate intervention ?at this time.? We will monitor/initiate medications and make changes as indicated.? ? The patient?s likely length of stay 4-6 days. Coding Level of Care Code Acute Code for [facility] Fwd Diagnoses MDD (major depressive disorder), recurrent severe, without psychosis F33.2 Generalized anxiety disorder F41.1
[2023-05-04 20:38] VITALS: BP 95/58; PULSE 48; RESP 15; O2SAT 98
[2023-05-05 06:00] VITALS: BP 92/58; PULSE 81; RESP 16; TEMP 36.8; O2SAT 99
[2023-05-05] MEDS: metroNIDAZOLE 500 MG Tablet PO ×2 (08:21→18:00)
[2023-05-05] MEDS: fluoxetine 10 mg Capsule PO (08:21)
[2023-05-05] MEDS: fluoxetine 20 mg Capsule PO (08:22)
[2023-05-05] MEDS: doxycycline 100 mg Tablet PO ×2 (08:22→17:38)
[2023-05-05 14:00] VITALS: BP 102/70; PULSE 92; RESP 16; TEMP 36.8; O2SAT 98
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
[2023-05-05 20:20] VITALS: BP 102/62; PULSE 70; RESP 17; TEMP 36.4; O2SAT 96
[2023-05-06 06:00] VITALS: BP 93/61; PULSE 77; RESP 16; TEMP 36.6; O2SAT 97
[2023-05-06] MEDS: fluoxetine 20 mg Capsule 40 MG PO (07:39)
[2023-05-06] MEDS: metroNIDAZOLE 500 MG Tablet PO ×2 (07:39→17:23)
[2023-05-06] MEDS: doxycycline 100 mg Tablet PO ×2 (07:39→17:23)
[2023-05-06 14:00] VITALS: BP 101/72; PULSE 79; RESP 16; TEMP 36.8; O2SAT 97
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
[2023-05-06 20:24] VITALS: BP 93/61; PULSE 77; RESP 16; TEMP 36.6; O2SAT 98
[2023-05-07 06:00] VITALS: BP 103/69; PULSE 93; RESP 16; TEMP 36.4; O2SAT 98
[2023-05-07] MEDS: fluoxetine 20 mg Capsule 40 MG PO (08:23)
[2023-05-07] MEDS: doxycycline 100 mg Tablet PO (08:23)
[2023-05-07] MEDS: metroNIDAZOLE 500 MG Tablet PO (08:23)
[2023-05-07 10:14] VITALS: BP 103/69; PULSE 93; RESP 16; TEMP 36.4; O2SAT 98
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
== END 2023-05-07 11:47 | disposition home or self-care (01) | DRG 885 ==
LOC: ER 22:33 → NP 23:44
PROVIDERS: Admitting Provider Psychiatry & Neurology Psychiatry; Emergency Provider Nurse Practitioner Family; PCP Nurse Practitioner Family; Visit Provider Psychiatry & Neurology Psychiatry
DX: F33.2 Major depressive disorder, recurrent severe without psychotic features (principal); R45.851 Suicidal ideations; F41.1 Generalized anxiety disorder; Z62.812 Personal history of neglect in childhood
CPT/HCPCS: 80053; 80306; 80307; 81001; 84443; 84703; 85025; 97150; 97165; 99285

== ENCOUNTER → 2023-06-11 11:15 | Outpatient (BNVA) | payer MEDICAID, SELFPAY | PROVIDERS: PCP Nurse Practitioner Family; Visit Provider Obstetrics & Gynecology | DX: R10.2 Pelvic and perineal pain (principal) | CPT/HCPCS: 76830 ==

== ENCOUNTER 2023-08-08 07:32 | Emergency (ER) | payer MEDICAID, SELFPAY ==
[2023-08-08 07:33] VITALS: BP 123/70; PULSE 103; RESP 18; TEMP 36.6; O2SAT 98; BMI 29.2
[2023-08-08 07:55] VITALS: BP 104/76; BP 106/69; BP 114/75; PULSE 104; PULSE 95; PULSE 99
--- NOTE | 2023-08-08 07:55 | XR_ITS ---
WS: [id number] XR chest 1V portable [id number] REASON FOR EXAM: fever FINDINGS: The heart and the mediastinum are within normal limits. Minimal calcified granulomatous change in both hemithoraces. No acute pulmonary parenchymal or pleural abnormality is identified. Bony thorax is intact with no significant focal abnormality. XR/XR chest 1V portable [id number] IMPRESSION: No acute chest abnormality.
--- NOTE | 2023-08-08 07:56 | W.ED.DIZZY ---
HPI - Dizziness General: Chief Complaint: Dizziness Stated Complaint: Vertigo Time Seen by Provider: 08/08/23 07:34 Source: patient Mode of arrival: EMS Limitations: no limitations History of Present Illness: HPI Narrative: This patient was transported from her home for complaints of dizziness. Patient relates that she has episodes when she changes positions stands up she feels lightheaded. She apparently as either near syncopal or syncopal episodes on occasion with these episodes. She does not have a history of seizure disorder. She states that she is not had any issues with recent upper respiratory infections no change in hearing no vertigo etc. Denies any focal weakness or numbness. She apparently had a child approximately 4 months ago and has had ongoing issues since that delivery. She apparently is on thyroid replacement which she has intermittently taken prior to this past and she is undergoing medication adjustment currently. She denies any sensation of palpitations. She denies any recent illness with nausea vomiting or diarrhea. She denies dysuria. She does state that she had a fever last night and had a fever the night before. She is not exposed to any known infectious disease. She has not any recent travel etc. No prior history of cardiac arrhythmias etc. MD elicited complaint: lightheadedness Description: lightheadedness Exacerbating factors: change in body position Associated symptoms: Reports no associated symptoms, nasal congestion and syncope; Denies chest pain, headache(s), nausea, palpitations or vomiting Associated neuro symptoms: Reports no associated symptoms; Deny numbness in extremities Review of Systems Const: Denies: body aches or change in appetite Eyes: Denies: change in vision ENMT: Reports: nasal congestion; Denies: throat pain, odynophagia, ear or mastoid pain, disequilibrium or nasal discharge Card: Reports: syncope and pre-syncope; Denies: chest pain, palpitations or irregular heart rhythm Resp: Denies: dyspnea, productive cough or non-productive cough GI: Denies: nausea, vomiting, hematemesis or diarrhea : Reports: vaginal bleeding (First menstrual period 2 days ago for approximately 2 months); Denies: difficulty voiding, dysuria or urinary frequency Skin/Breast: Denies: rash or pruritus Neuro: Denies: headache(s), numbness in extremities, weakness in extremities, vertigo or difficulty communicating thoughts Psych: Denies: anxiety or depression Keven/Lymph: Denies: easy bruising or easy bleeding PFSH ED PFSH: Medical History PTSD (post-traumatic stress disorder) Psychiatric care Generalized anxiety disorder Hypothyroidism 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 Manages with communicative behavior. History of reactive attachment disorder Major depressive disorder, recurrent, moderate Mitral valve prolapse Surgical History History of section (~08/2021) Primary elective section performed by Dr. Haynes [facility] Family History Other Adopted Social History Smoking and tobacco/nicotine status: never used tobacco/nicotine Physical Exam Narrative: EXAM NARRATIVE: She is alert appears normal and comfortable makes good eye contact and answers questions in a goal-directed fashion. Const: COMMON NORMALS: no acute distress, average body habitus, patient oriented x3, healthy appearing and alert GENERAL APPEARANCE: cooperative and comfortable HENMT: COMMON NORMALS: normocephalic, atraumatic, external ears normal, EAC's normal, TM's normal bilaterally, Normal nasal mucous membranes and turbinates present, moist oral mucous membranes and oropharynx normal HEAD & SCALP: normocephalic and atraumatic FACE & SINUS: normal facial exam NOSE: Normal nasal mucous membranes and turbinates present EXTERNAL EAR: Yes external ears normal EXTERNAL AUDITORY CANAL: EAC's normal TYMPANIC MEMBRANE: TM's normal bilaterally Eye: COMMON NORMALS: Equal, round and reactive pupils present, EOMs intact bilaterally and conjunctivae normal CONJUNCTIVA: Yes conjunctivae normal PUPIL: Yes Equal, round and reactive pupils present EOM: No Nystagmus present Neck/C-Spine: COMMON NORMALS: full ROM, no lymphadenopathy, supple and Thyroid normal THYROID: Thyroid normal Chest: COMMONS NORMALS: normal inspection of the chest Resp: COMMON NORMALS: normal respiratory effort, No retractions, No use of accessory muscles and clear to auscultation bilaterally AUSCULTATION: clear to auscultation bilaterally Cardio: COMMON NORMALS: regular rate, regular rhythm, No murmurs present (Cardio) and Peripheral pulses 2+ throughout RATE: regular rate RHYTHM: regular rhythm PERIPHERAL PULSES: Peripheral pulses 2+ throughout GI: COMMON NORMALS: Normal to inspection, nondistended, normoactive bowel sounds present and Soft to palpation PALPATION: Yes Soft to palpation : COMMON NORMALS: Yes no CVA tenderness BLADDER/KIDNEY EXAM: Yes no CVA tenderness Back/Pelvis: COMMON NORMALS: no CVA tenderness, thoracic and lumbar spine normal to inspection, no thoracic nor lumbar tenderness and thoraco-lumbar ROM normal Extremity: COMMON NORMALS: normal to inspection, full ROM, capillary refill normal, no calf tenderness and no pedal edema Neuro: COMMON NORMALS: patient oriented x3, moves all extremities, no focal motor deficits and no sensory deficits noted SENSORIUM/ORIENTATION: Yes alert CRANIAL NERVES: Yes CN normal except as noted COORDINATION/BALANCE: [id number]-rx-lucd test normal, bklx-az-gubt test normal, tandem gait normal and other (She was allowed to rise from sitting stand walk few steps return to room 60) GAIT: Yes Normal gait present COORDINATION: gwwjlt-fi-mumf test normal, uaxj-ad-sucf test normal, tandem gait normal and other (She was allowed to rise from sitting stand walk few steps return to room 60) Psych: COMMON NORMALS: mental status grossly normal Skin: COMMON NORMALS: no rashes or lesions noted and turgor normal GENERAL SKIN EXAM: no rashes or lesions noted and turgor normal Course Reevaluation(s): Reevaluation #1: Patient allowed to ambulate about the emergency department which she did unaided without any ataxia or difficulty. Time: 10:49 Reevaluation #2: Discussed current findings with the patient. She seems to be not satisfied with the discussion and the fact that she had no evidence of any ongoing infection etc. at this time. She did relate to me during our conversation that she had not been taking any thyroid medication which was a miscommunication on her initial intake. With her TSH being at the level it is she certainly making sufficient endogenous thyroid hormone and does not need any replacement based on her values today. At this point in time she has no evidence of an ongoing emergency medical condition. She may in fact have subclinical hyperthyroidism which needs further evaluation by endocrinology. She apparently had an endocrinology appointment today. I encouraged her to follow-up with endocrinology. She is being discharged in stable condition at this time. Time: 10:56 Vital Signs: Vital signs: Vital Signs Temperature 97.9 F 08/08/23 07:33 Pulse Rate 85 08/08/23 09:54 Respiratory Rate 16 08/08/23 09:54 Blood Pressure 120/74 08/08/23 09:54 Pulse Oximetry 95 08/08/23 09:54 Oxygen Delivery Me thod Nasal Cannula 08/08/23 08:17 Oxygen Flow Rate 3 08/08/23 08:17 MDM - Dizziness Medical Decision Making This patient presented to the emergency department symptoms that she stated that were episodic lightheadedness and feeling like she was going to pass out at times. She states these seem to be occurring at various times and seem to be most related to change in position. She denied any spinning or vertigo symptoms. She denies any concomitant headache or focal neurologic symptoms. She states that she has been having problems for several months. She states that she had a of her child 4 months ago and was followed by OB here. She has had irregular bleeding or amenorrhea since her and she just had a regular menstrual period 2 days ago. She states that she was told she had thyroid issues in the past and was scheduled to see her boarder machine on the day of this ED visit. Her clinical examination revealed no evidence of cerebellar dysfunction. She had no provoked vertigo. Electrocardiogram was obtained which revealed no evidence of preexcitation syndromes and was essentially normal EKG. Her cardiac rhythm while in the emergency department was unremarkable for any arrhythmias. TSH as well as CBC and other ancillary studies were obtained which were reviewed with the patient. She had a suppressed TSH and then later related that she was not taking any thyroid medications. Her chest x-ray blood count chemistries and other parameters in the emergency department reassuring. She ambulated without any findings to suggest cerebellar dysfunction or ataxia. No indication based on her history and presentation that there is a central cause of her symptoms. There is also no indication that she is experiencing an arrhythmia either historically or by evaluation in the emergency department today. She is clinically stable at this time to be discharged with ongoing endocrinology follow-up. All findings were shared with the patient and her accompanying partner. The patient expressed some displeasure and frustration with her care that she received over the past 4 months but she was given full disclosure of our findings today and at that there was no ongoing emergency medical condition but certainly continued follow-up is vitally important. Lab Data I reviewed the patient's lab results. 08/08/23 07:23 08/08/23 07:23 Radiology Impressions Chest X-Ray 08/08/23 07:55 IMPRESSION: No acute chest abnormality. Laboratory Results WBC 12.04 10^3/uL (3.29-11.43) H 08/08/23 07:23 RBC 4.70 10^6/uL (3.85-5.65) 08/08/23 07:23 Hgb 14.30 g/dL (11.27-16.99) 08/08/23 07:23 Hct 41.6 % (36-47) 08/08/23 07:23 MCV 88.5 fl (85-98) 08/08/23 07:23 MCH 30.4 pg (27-33) 08/08/23 07:23 MCHC 34.4 g/dL (30-55) 08/08/23 07:23 RDW 12.5 % (12.1-15.1) 08/08/23 07:23 Plt Count 292 10^3/cmm (157-399) 08/08/23 07:23 MPV 9.4 fL (7.4-10.4) 08/08/23 07:23 Neut % (Auto) 75.9 % 08/08/23 07:23 Lymph % (Auto) 15.2 % 08/08/23 07:23 [place] % (Auto) 7.6 % 08/08/23 07:23 Eos % (Auto) 0.9 % 08/08/23 07:23 Baso % (Auto) 0.2 % 08/08/23 07:23 Neut # (Auto) 9.12 10^3/uL (1.8-7.7) H 08/08/23 07:23 Lymph # (Auto) 1.8 10^3/uL (0.8-4.8) 08/08/23 07:23 [place] # (Auto) 0.9 10^3/uL (0.2-0.9) 08/08/23 07:23 Eos # (Auto) 0.1 10^3/uL (0.0-0.8) 08/08/23 07:23 Baso # (Auto) 0.0 10^3/uL (0.0-0.1) 08/08/23 07:23 Nucleated RBC % (auto) 0 % 08/08/23 07:23 Nucleated RBCs # 0.0 /100WBC 08/08/23 07:23 Sodium 140 mmol/L (136-145) 08/08/23 07:23 Potassium 3.8 mmol/L (3.5-5.1) 08/08/23 07:23 Chloride 104 mmol/L (98-107) 08/08/23 07:23 Carbon Dioxide 24 mmol/L (22-29) 08/08/23 07:23 Anion Gap 15.8 (5-19) 08/08/23 07:23 BUN 10 mg/dL (6-20) 08/08/23 07:23 Creatinine 0.7 mg/dL (0.5-0.9) 08/08/23 07:23 GFR Calculation 104.6 mL/min (90-130) 08/08/23 07:23 Glucose 95 mg/dL (65-115) 08/08/23 07:23 Calculated Osmolality 289 mOsm/kg (285-295) 08/08/23 07:23 Calcium 9.1 mg/dL (8.5-10.5) 08/08/23 07:23 Total Bilirubin 0.8 mg/dL (0.15-1.2) 08/08/23 07:23 AST 20 U/L (0-32) 08/08/23 07:23 ALT 29 U/L (0-33) 08/08/23 07:23 Alkaline Phosphatase 117 U/L (35-105) H 08/08/23 07:23 Total Protein 7.4 g/dL (6.6-8.7) 08/08/23 07:23 Albumin 4.2 g/dL (3.5-5.2) 08/08/23 07:23 Globulin 3.2 g/dL (1.3-4.6) 08/08/23 07:23 TSH 0.02 uIU/mL (0.27-4.20) L 08/08/23 07:23 HCG, Qual Negative (Negative) 08/08/23 08:07 Urine Color Yellow (Yellow) 08/08/23 08:07 Urine Appearance Clear (CLEAR) 08/08/23 08:07 Urine pH 6.5 (5-7) 08/08/23 08:07 Ur Specific [place] 1.010 (1.005-1.030) 08/08/23 08:07 Urine Protein Neg (Negative) 08/08/23 08:07 Urine Glucose (UA) Norm (Normal) 08/08/23 08:07 Urine Ketones Negative (Negative) 08/08/23 08:07 Urine Blood Neg (Negative) 08/08/23 08:07 Urine Nitrate Negative (Negative) 08/08/23 08:07 Urine Bilirubin Neg (Negative) 08/08/23 08:07 Urine Urobilinogen Norm mg/dL (Negative) 08/08/23 08:07 Ur Leukocyte Esterase Negative (Negative) 08/08/23 08:07 All radiology interpretation(s) finalized by discharge EKG Data EKG 1: I personally reviewed and interpreted this EKG as follows: Interpretation: Review of resting EKG reveals a ventricular rate of 89 bpm. Consistent with normal sinus rhythm. Normal [place] interval, normal QRS duration, normal QT corrected. Normal axis. No acute ST-T wave changes noted. No evidence of pro arrhythmia findings on this EKG. Discharge Plan Discharge Patient Disposition: Home Clinical Impression: Near syncope, Episodic lightheadedness Condition: Stable Prescriptions: No Action cranberry 500 mg capsule 500 mg PO DAILY Rx Instructions: administer with meals norgestimate-ethinyl estradiol [Sprintec (28)] 0.25-35 mg-mcg tablet 1 tab PO DAILY Qty: 84 0RF fluoxetine 20 mg capsule 40 mg PO DAILY 30 Days Qty: 60 1RF multivitamin Tablet 1 tab PO QAM ibuprofen 800 mg tablet 800 mg PO TID PRN (Reason: Pelvic pain) Discharge Orders: Discharge ED (Routine); Ordered 08/08/23 Ordered By: Jon De Leon Referrals: Leelee Levy FNP [Primary Care Provider] - Discharge Diet: Usual diet Discharge Activity: Resume usual activity Patient Instructions: Opioid Safety, Pain Management Activity Restrictions/Additional Instructions: As we discussed your thyroid gland is functioning and your TSH is suppressed. This needs to be reevaluated to ensure that there is no evidence of elevated thyroid hormone which may or may not be contributing to your current symptoms. You also should take all your usual medications and follow-up with your boarder machine in the next week to 10 days. If you develop any new or other concerning symptoms you are welcome to return to the emergency department at any time. Coding Level of Care Code ED [facility] for Pradeep Yañez
--- NOTE | 2023-08-08 08:01 | ECG_ITS ---
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 Measurements Intervals [place] Rate: 89 P: 42 AK: 136 QRS: 22 QRSD: 80 T: 17 QT: 343 QTc: 419 Interpretive Statements SINUS RHYTHM Compared to ECG 10/13/2021 23:39:50 No significant changes Electronically Signed On 08-08-2023 18:15:11 CDT by Augie Loera M.D. [id number]
[2023-08-08 08:07] LABS: Basophils % 0.2 %; Eosinophils # 0.1 10^3/uL (0.0-0.8); Eosinophils % 0.9 %; Hematocrit 41.6 % (36-47); Lymphocytes # 1.8 10^3/uL (0.8-4.8); Lymphocytes % 15.2 %; Mean Corpuscular HGB Conc 34.4 g/dL (30-55); Mean Corpuscular Hemoglobin 30.4 pg (27-33); Mean Corpuscular Volume 88.5 fl (85-98); Mean Platelet Volume 9.4 fL (7.4-10.4); Monocytes # 0.9 10^3/uL (0.2-0.9); Monocytes % 7.6 %; Neutrophils # 9.12 10^3/uL (1.8-7.7); Neutrophils % 75.9 %; Nucleated Red Blood Cells % 0 %; Platelet Count 292 10^3/cmm (157-399); Red Cell Distribution Width 12.5 % (12.1-15.1); White Blood Count 12.04 10^3/uL (3.29-11.43)
[2023-08-08 08:17] VITALS: BP 75/54; PULSE 96; O2SAT 96
--- NOTE | 2023-08-08 08:17 | PC.NURSE ---
Pt family states pt had urinary incontinent episode. pt depends has small amount of urine output. this nurse changed depends and cleaned pt with bath wipes.
[2023-08-08] MEDS: lactated ringers 1,000 ML 999 ML IV (08:21)
[2023-08-08 08:27] LABS: Add Urine Microscopic? NO; Charge for UA Resulting for Rev
[2023-08-08 08:28] LABS: Alanine Aminotransferase 29 U/L (0-33); Albumin Level 4.2 g/dL (3.5-5.2); Alkaline Phosphatase 117 U/L (35-105); Anion Gap 15.8 (5-19); Aspartate Amino Transferase 20 U/L (0-32); Blood Urea Nitrogen 10 mg/dL (6-20); Calcium 9.1 mg/dL (8.5-10.5); Carbon Dioxide 24 mmol/L (22-29); Chloride 104 mmol/L (98-107); Creatinine Clr Calc Pharmacy 108.4904; Globulin 3.2 g/dL (1.3-4.6); Glomerular Filtration Rate 104.6 mL/min (90-130); Glucose 95 mg/dL (65-115); Osmolality Calculated 289 mOsm/kg (285-295); Potassium 3.8 mmol/L (3.5-5.1); Sodium 140 mmol/L (136-145); Thyroid Stimulating Hormone 0.02 uIU/mL (0.27-4.20); Total Bilirubin 0.8 mg/dL (0.15-1.2); Total Protein 7.4 g/dL (6.6-8.7)
[2023-08-08 08:37] LABS: Bilirubin Urine Neg (Negative); Blood Urine Neg (Negative); Glucose Urine UA Norm (Normal); Ketones Urine Negative (Negative); Leukocyte Esterase Urine Negative (Negative); Nitrate Urine Negative (Negative); Protein Urine Neg (Negative); Urine Appearance Clear (CLEAR); Urine Color Yellow (Yellow); Urobilinogen Urine Norm (Negative); pH Urine 6.5 (5-7)
[2023-08-08 08:40] LABS: HCG Qualitative Urine. Negative (Negative)
[2023-08-08 09:54] VITALS: BP 120/74; PULSE 85; RESP 16; O2SAT 95
[2023-08-08 11:12] VITALS: BP 120/74; PULSE 85; RESP 16; O2SAT 95
== END 2023-08-08 11:13 | disposition home or self-care (01) ==
PROVIDERS: Emergency Provider Emergency Medicine; PCP Nurse Practitioner Family
DX: R55 Syncope and collapse (principal); R42 Dizziness and giddiness
CPT/HCPCS: 71045; 80053; 81003; 81025; 84443; 85025; 93005; 99285; J7120

== ENCOUNTER 2023-08-09 10:34 | Outpatient (CLI) | payer MEDICAID, SELFPAY ==
[2023-08-09 12:46] LABS: Adenovirus Not Detected (NOT DETECT); Chlamydia Pneumoniae Not Detected (NOT DETECT); Coronavirus 229E,HKU1,NL63,OC4 Not Detected (NOT DETECT); Human Metapneumovirus Not Detected (NOT DETECT); Human Rhinovirus/Enterovirus Not Detected (NOT DETECT); Influenza A Not Detected (NOT DETECT); Influenza A H1 Not Detected (NOT DETECT); Influenza A H1-2009 Not Detected (NOT DETECT); Influenza A H3 Not Detected (NOT DETECT); Influenza B Not Detected (NOT DETECT); Mycoplasma Pneumoniae Not Detected (NOT DETECT); Parainfluenza Virus Type 1 Not Detected (NOT DETECT); Parainfluenza Virus Type 2 Not Detected (NOT DETECT); Parainfluenza Virus Type 3 Not Detected (NOT DETECT); Parainfluenza Virus Type 4 Not Detected (NOT DETECT); Respiratory Syncytial Virus A Not Detected (NOT DETECT); Respiratory Syncytial Virus B Not Detected (NOT DETECT); SARS-COV-2 Not Detected (NOT DETECT)
== END 2023-08-09 10:35 | disposition home or self-care (01) ==
PROVIDERS: PCP Nurse Practitioner Family; Visit Provider Nurse Practitioner Family
DX: R09.81 Nasal congestion (principal); R51.9 Headache, unspecified
CPT/HCPCS: 87486; 87581; 87633

== ENCOUNTER → 2023-08-16 12:58 | Outpatient (BNVA) | payer MEDICAID, SELFPAY | PROVIDERS: PCP Nurse Practitioner Family; Visit Provider Internal Medicine | DX: E03.9 Hypothyroidism, unspecified (principal); F41.9 Anxiety disorder, unspecified; F32.A Depression, unspecified; E01.0 Iodine-deficiency related diffuse (endemic) goiter | CPT/HCPCS: 36415; 83516; 84439; 84443; 84480; 86376; 86800 ==

== ENCOUNTER 2023-09-07 07:14 | Outpatient (CLI) | payer MEDICAID, SELFPAY ==
--- NOTE | 2023-09-07 07:30 | US_ITS ---
WS: [id number] THYROID ULTRASOUND REASON FOR EXAM: thyromegaly TECHNIQUE: Grayscale and Doppler ultrasound examination of the thyroid gland. FINDINGS: Heterogeneous echogenicity of the thyroid gland without focal lesion. RIGHT: Right thyroid gland measures 3.9 cm x 1.2 cm x 1.3 cm. Right thyroid volume equals 2.8 ccm3. No focal lesion LEFT: Left thyroid gland measures 3.3 cm x 1.6 cm x 1.1 cm. Left thyroid volume equals 2.9 ccm3. No focal l esion Thyroid isthmus: 0.3 mm. In the right cervical chain there is a lymph node which measures 2.6 x 1.1 x 0.5 cm. There is extensi ve echogenicity in the hilus of the lymph node. Characteristics of the lymph node are old, inflammato ry. US/US thyroid [id number] IMPRESSION: Mild thyromegaly without focal lesion.
== END 2023-09-07 07:15 | disposition home or self-care (01) ==
LOC: RAD 07:14
PROVIDERS: PCP Nurse Practitioner Family; Visit Provider Internal Medicine
DX: E01.0 Iodine-deficiency related diffuse (endemic) goiter (principal)
CPT/HCPCS: 76536

== ENCOUNTER 2023-10-18 08:33 | Outpatient (CLI) | payer OTHER, SELFPAY ==
[2023-10-18 10:32] LABS: Free T4 Free Thyroxine 0.85 ng/dL (0.82-1.77)
[2023-10-19 15:15] LABS: T3 Total 129 ng/dL (76-181)
== END 2023-10-18 08:34 | disposition home or self-care (01) ==
LOC: LAB 08:35
PROVIDERS: PCP Nurse Practitioner Family; Visit Provider Internal Medicine
DX: E03.9 Hypothyroidism, unspecified (principal); F41.9 Anxiety disorder, unspecified; F32.A Depression, unspecified
CPT/HCPCS: 36415; 84439; 84443; 84480

== ENCOUNTER 2023-12-10 14:20 | Outpatient (CLI) | payer OTHER, SELFPAY ==
[2023-12-10 15:14] LABS: Estmated Average Glucose 103; Hemoglobin A1C 5.2 % (4.0-6.0)
[2023-12-10 15:30] LABS: Free T4 Free Thyroxine 0.98 ng/dL (0.82-1.77); Thyroid Stimulating Hormone 7.13 uIU/mL (0.27-4.20)
[2023-12-11 11:55] LABS: T3 Total 112 ng/dL (76-181)
== END 2023-12-10 14:21 | disposition home or self-care (01) ==
LOC: LAB 14:22
PROVIDERS: PCP Nurse Practitioner Family; Visit Provider Internal Medicine
DX: E03.9 Hypothyroidism, unspecified (principal)
CPT/HCPCS: 36415; 83036; 84439; 84443; 84480

== ENCOUNTER → 2023-12-18 12:19 | Outpatient (BNVA) | payer MEDICAID, SELFPAY | PROVIDERS: PCP Nurse Practitioner Family; Visit Provider Internal Medicine | DX: Z32.01 Encounter for pregnancy test, result positive (principal) | CPT/HCPCS: 36415; 84702 ==

== ENCOUNTER 2024-02-15 11:26 | Outpatient (CLI) | payer MEDICAID, SELFPAY ==
[2024-02-15 12:39] LABS: Thyroid Stimulating Hormone 4.01 uIU/mL (0.27-4.20)
[2024-02-15 13:06] LABS: Free T4 Free Thyroxine 1.17 ng/dL (0.82-1.77)
== END 2024-02-15 11:27 | disposition home or self-care (01) ==
LOC: LAB 11:27
PROVIDERS: PCP Family Medicine; Visit Provider Internal Medicine
DX: E03.9 Hypothyroidism, unspecified (principal)
CPT/HCPCS: 36415; 84439; 84443

== ENCOUNTER → 2024-05-09 09:29 | Outpatient (BNVA) | payer MEDICAID, SELFPAY | PROVIDERS: PCP Family Medicine; Visit Provider Obstetrics & Gynecology | DX: R10.2 Pelvic and perineal pain (principal) | CPT/HCPCS: 88175 ==

== ENCOUNTER → 2024-06-12 09:38 | Outpatient (BNVA) | payer OTHER, SELFPAY | PROVIDERS: PCP Family Medicine; Visit Provider Family Medicine | DX: E03.9 Hypothyroidism, unspecified (principal) | CPT/HCPCS: 84439; 84443 ==

== ENCOUNTER → 2025-02-11 10:47 | Outpatient (BNVA) | payer OTHER, SELFPAY | PROVIDERS: PCP Family Medicine; Visit Provider Nurse Practitioner | DX: J02.9 Acute pharyngitis, unspecified (principal) | CPT/HCPCS: 87880 ==